=== PATIENT | male | born 1950 | race African-American/Black ===

== ENCOUNTER → 2020-07-01 13:43 | Outpatient (BNVA) | payer MEDICARE, MEDICAID, SELFPAY | PROVIDERS: PCP Student in an Organized Health Care Education/Training Program; Visit Provider Urology | DX: R35.0 Frequency of micturition (principal) | CPT/HCPCS: 51798; 81002; 99212 ==

== ENCOUNTER 2020-07-04 13:57 | Outpatient (REF) | payer MEDICARE, MEDICAID, SELFPAY ==
--- NOTE | 2020-07-04 14:16 | US_ITS ---
EXAMINATION: US RETROPERITONEAL LIMITED (RENAL ONLY) CLINICAL INFORMATION: Calculus of kidney. COMPARISON: KUB dated 09/20/2019. CT abdomen and pelvis without and with contrast dated 09/01/2019. TECHNIQUE: Real-time imaging of the kidneys. FINDINGS: RIGHT KIDNEY: 10.4 x 6.2 x 6.4 cm (SAG x AP x TRV). The kidney is normal in size, contour, and echogenicity. Renal cortical thickness is normal. No renal calculi or hydronephrosis. There is anechoic cyst in the upper pole measuring 2.0 x 2.3 x 2.2 cm LEFT KIDNEY: 11.1 x 6.3 x 5.3 cm (SAG x AP x TRV). The kidney is normal in size, contour, and echogenicity. Renal cortical thickness is normal. No renal calculi or hydronephrosis. There is a anechoic complex cyst midpole measuring 3.3 x 2.0 x 1.9 cm. US/US renal BI IMPRESSION: Upper pole right renal cyst. Complex cyst upper pole left kidney. No echogenic stones or hydronephrosis.
== END 2020-07-04 13:58 | disposition home or self-care (01) ==
LOC: HO.HMGCX 13:57
PROVIDERS: PCP Student in an Organized Health Care Education/Training Program; Visit Provider Urology
DX: N20.0 Calculus of kidney (principal)
CPT/HCPCS: 76775

== ENCOUNTER 2020-08-22 13:16 | Outpatient (REF) | payer MEDICARE, MEDICAID, SELFPAY ==
[2020-08-22 14:14] LABS: Glucose Urine UA NEG (NEG); Leukocyte Esterase Urine NEG (NEG); Nitrite Urine NEG (NEG); Urine Blood NEG (NEG); Urine Ketones NEG (NEG); Urine Protein NEG (NEG-TRACE)
[2020-08-22 14:16] LABS: Appearance Urine HAZY; Color Urine YELLOW
[2020-08-22 14:35] LABS: PSA,Total (Free>4and<10) 6.27 ng/mL (0.00-4.00)
[2020-08-23 13:21] LABS: Free Prostate Spec Ag 1.7 ng/mL; Percent Free Prostate Spec Ag 33 % (calc) (>25); Prostate Specific Ag Total 5.1 ng/mL (< OR = 4.0)
== END 2020-08-22 13:17 | disposition home or self-care (01) ==
LOC: HO.LAB 13:16
PROVIDERS: PCP Student in an Organized Health Care Education/Training Program; Visit Provider Urology
DX: N40.1 Benign prostatic hyperplasia with lower urinary tract symptoms (principal); N13.8 Other obstructive and reflux uropathy; Z12.5 Encounter for screening for malignant neoplasm of prostate
CPT/HCPCS: 36415; 81003; 84153; 84154

== ENCOUNTER 2020-09-20 13:15 | Outpatient (REF) | payer MEDICARE, MEDICAID, SELFPAY ==
[2020-09-20 14:42] LABS: Alanine Aminotransferase 11 U/L (0-40); Albumin Level 4.4 g/dL (3.5-5.0); Alkaline Phosphatase 71 U/L (39-117); Anion Gap 10 (12-20); Aspartate Amino Transferase 13 U/L (5-37); Bilirubin Direct 0.3 mg/dL (0.0-0.5); Bilirubin Total 0.9 mg/dL (0.0-1.0); Blood Urea Nitrogen 12 mg/dL (9-16); Carbon Dioxide 33 mmol/L (22-29); Chloride 103 mmol/L (96-108); Cholesterol 247 mg/dL; Estimated Glomerular Filt Rate > 60; Glucose Random 93 mg/dL (60-115); HDL Cholesterol 47 mg/dL; LDL Cholesterol Calculated 185 mg/dl; Potassium 3.9 mmol/L (3.3-5.1); Sodium 142 mmol/L (135-145); Total Protein 7.3 g/dL (6.5-8.0); Triglycerides 78 mg/dL
== END 2020-09-20 13:16 | disposition home or self-care (01) ==
LOC: HO.LAB 13:15
PROVIDERS: PCP Student in an Organized Health Care Education/Training Program; Visit Provider Student in an Organized Health Care Education/Training Program
DX: I10 Essential (primary) hypertension (principal)
CPT/HCPCS: 36415; 80048; 80061; 80076

== ENCOUNTER → 2020-10-03 12:51 | Outpatient (BNVA) | payer MEDICARE, OTHER, SELFPAY | PROVIDERS: Visit Provider Surgery | DX: K42.9 Umbilical hernia without obstruction or gangrene (principal) | CPT/HCPCS: 99202 ==

== ENCOUNTER 2020-11-12 07:07 | Day surgery (SDC) | payer MEDICARE, OTHER, SELFPAY ==
[2020-11-06 15:09] VITALS: BMI 34.1
--- NOTE | 2020-11-11 08:31 | HO.ANESPROP2 ---
Documented by User: Angi Ponce 11/11/20 08:32 HPI - Anesthesia Eval Consult details Narrative: 70yo M for Hernia Repair Umbilical with Mesh PMFSH Active Problems Active Problems: All Active Problems (Updated 11/06/20 @ 15:04 by Aura Gonzalez) Umbilical hernia (Acute) Kidney stone (Acute) Past Medical History Medical History BPH (benign prostatic hyperplasia) Elevated cholesterol Elevated PSA Erectile dysfunction GERD (gastroesophageal reflux disease) HTN (hypertension) Kidney stone Umbilical hernia Family History Family History Sister Breast cancer Surgical History Surgical History H/O colonoscopy History of hernia repair History of prostate biopsy Hx of hemorrhoidectomy Hx of lithotripsy Social History Social History Alcohol intake: never Smoking Status: Never smoker Advance Directives Information Provided: No Meds Allergies Allergy/AdvReac Type Severity Reaction Status Date / Time codeine [CODEINE] Allergy Intermediate CONFUSION; Verified 10/03/20 13:01 DIZZYNESS oxycodone [From PERCOCET] Allergy Intermediate confusion/d Verified 11/06/20 13:20 izziness Home Medications Medication Instructions Recorded Confirmed Last Taken Type aspirin 81 mg tablet,delayed 81 mg PO DAILY 07/01/20 11/06/20 Unknown History release omeprazole 20 mg capsule,delayed 20 mg PO DAILY 07/01/20 11/12/20 11/12/20 History release sildenafil 100 mg tablet 100 mg PO DAILY PRN 07/01/20 11/06/20 Unknown History verapamil 240 mg 24 hr 240 mg PO DAILY 07/01/20 11/12/20 11/12/20 History capsule,extended release hydralazine 10 mg PO BEDTIME 11/06/20 11/07/20 Unknown History lisinopril 40 mg PO DAILY 11/06/20 11/07/20 Unknown History Exam Exam Date and Time: November 11, 2020 0831 Height,Weight and Vital Signs: Height 5 ft 9 in Weight 104.78 kg Pertinent Lab Results Pertinent Lab Results: Laboratory Tests 09/20/20 13:25 Sodium 142 Potassium 3.9 Chloride 103 Carbon Dioxide 33 H BUN 12 Creatinine 0.98 Assessment and Plan Assessment Anesthesia Assessment: Chart Reviewed Documented by User: Collette Brannon 11/12/20 08:04 PMFSH Past Medical History Medical History BPH (benign prostatic hyperplasia) Elevated cholesterol Elevated PSA Erectile dysfunction GERD (gastroesophageal reflux disease) HTN (hypertension) Kidney stone Umbilical hernia Family History Family History Sister Breast cancer Surgical History Surgical History H/O colonoscopy History of hernia repair History of prostate biopsy Hx of hemorrhoidectomy Hx of lithotripsy Social History Social History Alcohol intake: never Smoking Status: Never smoker Advance Directives Information Provided: No Meds Allergies Allergy/AdvReac Type Severity Reaction Status Date / Time codeine [CODEINE] Allergy Intermediate CONFUSION; Verified 10/03/20 13:01 DIZZYNESS oxycodone [From PERCOCET] Allergy Intermediate confusion/d Verified 11/06/20 13:20 izziness Home Medications Medication Instructions Recorded Confirmed Last Taken Type aspirin 81 mg tablet,delayed 81 mg PO DAILY 07/01/20 11/06/20 Unknown History release omeprazole 20 mg capsule,delayed 20 mg PO DAILY 07/01/20 11/12/20 11/12/20 History release sildenafil 100 mg tablet 100 mg PO DAILY PRN 07/01/20 11/06/20 Unknown History verapamil 240 mg 24 hr 240 mg PO DAILY 07/01/20 11/12/20 11/12/20 History capsule,extended release hydralazine 10 mg PO BEDTIME 11/06/20 11/07/20 Unknown History lisinopril 40 mg PO DAILY 11/06/20 11/07/20 Unknown History Exam Airway Mallampati Class: III TM Dist: >3cm Neck ROM: Full
[2020-11-12] VITALS (7 sets, daily range): BP systolic 144–180; BP diastolic 89–110; PULSE 74–83; RESP 16–18; TEMP 36.2–36.4; O2SAT 94–98
[2020-11-12] MEDS: Lactated Ringers 1,000 ML 100 ML IVCONT (07:53)
--- NOTE | 2020-11-12 08:39 | MHC.SHP ---
Pre-Procedural Eval Section B Chief Complaint: Umbilical Hernia Allergies: Allergies Allergy/AdvReac Type Severity Reaction Status Date / Time codeine [CODEINE] Allergy Intermediate CONFUSION; Verified 10/03/20 13:01 DIZZYNESS oxycodone [From PERCOCET] Allergy Intermediate confusion/d Verified 11/06/20 13:20 izziness Plan I have reviewed the history and physical and performed a pertinent physical examination on my patient. No changes have occurred unless specified.
--- NOTE | 2020-11-12 09:47 | P.OP_ITS ---
Operative Note Operative Note Date of Service: 11/12/20 Narrative: Preop diagnosis: Umbilical hernia line Postop diagnosis: Umbilical hernia Procedure: Repair of umbilical hernia with Ventralex mesh Surgeon: Ian Allison MD Nuclear Medicine Specialist: RAYSA Serna student The patient is a 70-year-old male referred to me because of an umbilical hernia. This was about a 2.5- 3 cm hernia partially reducible just on the supraumbilical margin. He wanted to proceed with repair. He understood technique of the procedure as well as the risks, benefits and alternatives. He was brought to the operating room and placed supine on table under general anesthesia via laryngeal mask airway. The abdomen is prepped and draped in the full sterile fashion. A surgical time-out was done. The patient received cefazolin 2 g IV preoperatively I marked and line of incision transversely just above the umbilicus. I infiltrated this area with lidocaine 1%. I made the incision using blade 15. This was carried down through the full-thickness of skin and subcutaneous fat with electrocautery. We then used the Metzenbaum scissors to continue to gently dissect under the the umbilicus. I applied Allis clamps on the subdraml layer of the inferior flap for retraction. I gently lifted the umbilicus as a flap. By doing so I was able to visualize herniated omental fat. There was no bowel involvement. I dissected around omental fat with Metzenbaum scissors until was able to clearly define the fascial defect. I divided adhesions surrounding the herniated omentum and by doing so I was able to completely reduce this hernia. The fascial defect was clearly defined. This was about 1.5 cm defect. I gently dissected the underside with the finger and made sure that there were no adhesions. I positioned a small sized Ventralex mesh under the defect and this was flattened. I secured the mesh with Prolene 2-0 sutures from the fascia to each Prolene straps. I then trimmed the straps flush on the fascial level. I closed the fascial defect with a [id number] Maxon 1 stitch. I reapposed the subcutaneous layer the Dexon 3-0 interrupted sutures. Skin closure was achieved with Dexon 4-0 subcuticular running sutures. Steristrips and dressings were applied. I infiltrated the area with Marcaine 0.5% for postop analgesia. The procedure was completed. The patient tolerated the procedure well . There were no complications noted. Initial and final counts of sponges and instruments were correct. Estimated blood loss was about 2 cc. The patient was extubated without difficulty and transferred to the recovery room with stable VS.
--- NOTE | 2020-11-12 10:00 | P.BOP_ITS ---
Brief Operative Note Date of Service: 11/12/20 Pre-op diagnosis: umbilical hernia Post-op diagnosis: same Procedure: Repair of umbilical hernia with Ventralex mesh Surgeon: Ian Allison MD Anesthesia: GLMA Was an Dishwashing Machine Repairer used for this Procedure?: No Estimated blood loss (mL): 2 Pathology: none sent Condition: stable Disposition: PACU
[2020-11-12] MEDS: traMADoL HCL 50 MG TABLET 25 MG PO (10:35)
== END 2020-11-12 11:32 | disposition home or self-care (01) ==
PROVIDERS: PCP Student in an Organized Health Care Education/Training Program; Visit Provider Surgery
PROC: (CPT 49585; principal; 2020-11-12 08:40)
DX: K42.9 Umbilical hernia without obstruction or gangrene (principal); K66.0 Peritoneal adhesions (postprocedural) (postinfection); K21.9 Gastro-esophageal reflux disease without esophagitis; I10 Essential (primary) hypertension; Z79.82 Long term (current) use of aspirin; Z79.899 Other long term (current) drug therapy; Z87.442 Personal history of urinary calculi; Z88.8 Allergy status to other drugs, medicaments and biological substances
CPT/HCPCS: 49585; C1781; J0690; J2250; J2405; J3010

== ENCOUNTER → 2020-11-25 10:04 | Outpatient (BNVA) | payer MEDICARE, MEDICAID, SELFPAY | PROVIDERS: PCP Student in an Organized Health Care Education/Training Program; Referring Provider Student in an Organized Health Care Education/Training Program; Visit Provider Surgery | DX: Z48.815 Encounter for surgical aftercare following surgery on the digestive system (principal); Z87.19 Personal history of other diseases of the digestive system | CPT/HCPCS: 99212 ==

== ENCOUNTER 2021-09-29 15:38 | Outpatient (REF) | payer MEDICARE, OTHER, SELFPAY ==
[2021-09-29 16:40] LABS: Alanine Aminotransferase 21 U/L (0-40); Albumin Level 4.5 g/dL (3.5-5.0); Alkaline Phosphatase 80 U/L (39-117); Anion Gap 12 (12-20); Aspartate Amino Transferase 13 U/L (5-37); Bilirubin Direct 0.2 mg/dL (0.0-0.5); Bilirubin Total 0.6 mg/dL (0.0-1.0); Blood Urea Nitrogen 13 mg/dL (9-16); Calcium 9.6 mg/dL (8.4-10.2); Carbon Dioxide 32 mmol/L (22-29); Chloride 102 mmol/L (96-108); Cholesterol 216 mg/dL; Estimated Glomerular Filt Rate > 60; Glucose Random 94 mg/dL (60-115); HDL Cholesterol 43 mg/dL; LDL Cholesterol Calculated 150 mg/dl; Potassium 4.1 mmol/L (3.3-5.1); Sodium 142 mmol/L (135-145); Total Protein 7.5 g/dL (6.5-8.0); Triglycerides 117 mg/dL
[2021-09-29 17:03] LABS: Thyroid Stimulating Hormone 1.08 uIU/mL (0.32-4.0)
== END 2021-09-29 15:39 | disposition home or self-care (01) ==
LOC: HO.LAB 15:38
PROVIDERS: PCP Student in an Organized Health Care Education/Training Program; Visit Provider Student in an Organized Health Care Education/Training Program
DX: E78.00 Pure hypercholesterolemia, unspecified (principal); I10 Essential (primary) hypertension
CPT/HCPCS: 36415; 80048; 80061; 80076; 84443

== ENCOUNTER 2021-12-16 16:34 | Emergency (ER) | payer MEDICARE, OTHER, SELFPAY ==
[2021-12-16 16:54] VITALS: BP 164/97; PULSE 77; RESP 18; TEMP 37.1; O2SAT 95; BMI 32.5
[2021-12-16 17:09] LABS: MANUAL DIFF FLAG NO
[2021-12-16 17:12] LABS: Basophils Percent Auto 0.3 % (0-2); Eosinophils Absolute Auto 0.2 X10*3/uL (0.0-0.4); Eosinophils Percent Auto 3.2 % (0-4); Hematocrit 40.9 % (42.0-52.0); Hemoglobin 13.5 g/dl (14.0-18.0); Imm Gran Abs Auto 0.01 X10*3/uL (0.00-0.03); Imm Gran Pct Auto 0.2 % (0.0-0.4); Lymphocytes Absolute Auto 1.7 X10*3/uL (1.2-4.9); Lymphocytes Percent Auto 29.4 % (20-40); Mean Corpuscular Hemoglobin 30.5 pg (27.0-33.0); Mean Corpuscular Volume 92.3 fL (80.0-98.0); Mean Platelet Volume 9.5 fL (9.4-12.4); Monocytes Absolute Auto 0.6 X10*3/uL (0.1-1.2); Monocytes Percent Auto 10.8 % (2-11); Neutrophils Absolute Auto 3.3 x10*3/uL (2.0-8.3); Neutrophils Percent Auto 56.1 % (45-73); Platelet Count 229 X10*3/uL (160-400); Red Blood Count 4.43 X10*6/uL (4.60-5.80); Red Cell Distribution Width 12.6 % (11.0-16.0); White Blood Count 5.9 X10*3/uL (4.8-10.8)
[2021-12-16 17:12] LABS: Appearance Urine CLOUDY; Color Urine YELLOW; Glucose Urine UA NEG (NEG); Leukocyte Esterase Urine NEG (NEG); Nitrite Urine NEG (NEG); PH 7.5 (5.0-8.0); Specific Gravity - Urine 1.015 (1.005-1.025); Urine Blood NEG (NEG); Urine Ketones NEG (NEG); Urine Protein NEG (NEG-TRACE)
[2021-12-16 17:45] LABS: Alanine Aminotransferase 19 U/L (0-40); Albumin Level 4.3 g/dL (3.5-5.0); Alkaline Phosphatase 77 U/L (39-117); Anion Gap 9 (12-20); Aspartate Amino Transferase 14 U/L (5-37); Bilirubin Total 0.5 mg/dL (0.0-1.0); Blood Urea Nitrogen 16 mg/dL (9-16); Calcium 9.2 mg/dL (8.4-10.2); Carbon Dioxide 32 mmol/L (22-29); Chloride 105 mmol/L (96-108); Creatinine Clr Calc Pharmacy 74.8; Estimated Glomerular Filt Rate > 60; Glucose Random 104 mg/dL (60-115); Sodium 142 mmol/L (135-145); Total Protein 7.2 g/dL (6.5-8.0)
[2021-12-16 22:29] VITALS: BP 166/92; PULSE 76; RESP 15; TEMP 36.6; O2SAT 96
--- NOTE | 2021-12-16 22:30 | ED_ITS ---
HPI - General Adult General Chief complaint: Abdominal Pain Stated complaint: lower back pain Time Seen by Provider: 12/16/21 22:18 Source: patient Mode of arrival: ambulatory Limitations: no limitations History of Present Illness HPI narrative: Patient comes to the emergency room complaining of 6 weeks of right lower back pain. Patient states fall occasionally he has pain. At this time, is minimal. Patient states that at some point he saw hematuria, possibly 3 weeks ago but nothing recent. Patient denies dysuria, no flank pain, no abdominal pain. Patient denies any injury. Patient denies urinary/fecal incontinence/retention Related Data Home Medications Medication Instructions Recorded Confirmed aspirin 81 mg tablet,delayed 81 mg PO DAILY 07/01/20 11/25/20 release (Adult Low Dose Aspirin) omeprazole 20 mg capsule,delayed 20 mg PO DAILY 07/01/20 11/25/20 release sildenafil 100 mg tablet 100 mg PO DAILY PRN Erectile 07/01/20 11/25/20 Dysfunction verapamil 240 mg 24 hr 240 mg PO DAILY 07/01/20 11/25/20 capsule,extended release hydralazine 10 mg tablet 10 mg PO BEDTIME 11/06/20 11/25/20 lisinopril 40 mg tablet 40 mg PO DAILY 11/06/20 11/25/20 Previous Rx's Medication Instructions Recorded ibuprofen 600 mg tablet 600 mg PO Q6H PRN pain #30 tabs 11/12/20 oxycodone-acetaminophen 5 mg-325 1 - 2 tab PO Q4-6H PRN pain #30 11/12/20 mg tablet (Percocet) tabs tramadol 50 mg tablet 50 mg PO Q6H PRN pain #30 tabs 11/12/20 tamsulosin 0.4 mg capsule 0.4 mg PO BEDTIME #30 caps 04/25/21 ketorolac 10 mg tablet 10 mg PO TID PRN pain 5 days #7 12/16/21 tabs tramadol 50 mg tablet 50 mg PO BID PRN pain #7 tabs 12/16/21 Allergies Allergy/AdvReac Type Severity Reaction Status Date / Time codeine [CODEINE] Allergy Intermediate CONFUSION; Verified 12/16/21 16:53 DIZZYNESS oxycodone [From PERCOCET] Allergy Intermediate confusion/d Verified 12/16/21 16:53 izziness Review of Systems Review of Systems: Constitutional : No Weight loss, No Fever, No Chills, No Night Sweats, No Fatigue, No Malaise ENT/Mouth : No Hearing loss, No Ear Pain, No Nasal Congestion, No Sinus Pain, No Hoarseness, No sore throat, No Rhinorrhea, No Swallowing Difficulty Eyes: No Eye Pain, No Swelling, No Redness, No Foreign Body, No Discharge, No Vision Changes Cardiovascular : No Chest Pain, No SOB, No Dyspnea on Exertion, No Orthopnea, No Edema, No Palpitations Respiratory : No Cough, No Sputum, No Wheezing, No Smoke Exposure, No Dyspnea Gastrointestinal : No Nausea, No Vomiting, No Diarrhea, No Constipation, No abdominal Pain, No Hematochezia, No Melena Genitourinary : no irregular bleeding, No Dysuria, No Urinary Frequency, No Hematuria, No Urinary Incontinence, No Urgency, No Flank Pain, No Urinary Flow Changes, No Hesitancy Musculoskeletal : Complaining of right low back pain Skin : No Skin Lesions, No rash Neuro : No Weakness, No Numbness, No Paresthesias, No Loss of Consciousness, No Dizziness, No Headache Psych : No Anxiety/Panic, No Depression, No SI/HI/AH/VH, No Social Issues, Heme/Lymph: No Bruising, No Bleeding,No Lymphadenopathy Endocrine : No Polyuria, No Polydipsia, No Temperature Intolerance PMFSH Past Medical History Medical History BPH (benign prostatic hyperplasia) Elevated cholesterol Elevated PSA Erectile dysfunction GERD (gastroesophageal reflux disease) HTN (hypertension) Surgical History H/O colonoscopy History of hernia repair History of prostate biopsy Hx of hemorrhoidectomy Hx of lithotripsy Family History Family History Sister Breast cancer Social History Social History Alcohol intake: never Advance Directives: No Physical Exam ED Vital Signs: Vital Signs - 24 hr 12/16/21 16:54 12/16/21 22:29 Temperature 98.7 F 97.8 F Pulse Rate 77 76 Respiratory Rate 18 15 Blood Pressure 164/97 H 166/92 H Pulse Oximetry 95 96 Oxygen Delivery Method Room Air Room Air BMI result Body Mass Index 32.5 Const Other: Appearance: Alert. Oriented X3. No acute distress. Eyes: Pupils equal, round and reactive to light. ENT: Pharynx normal. Neck: Normal inspection. Neck supple. No lymph nodes noted. No crepitus CVS: Normal heart rate and rhythm. Pulses normal. Normal S1 and S2 Respiratory: No respiratory distress. Breath sounds normal. No Wheezing. No rales Abdomen: Soft and nontender. No rigidity. No distention. Back: Spina muscles on the left side are soft, on the right side muscles are tense, mild pain to palpation. No CVA tenderness Skin: Skin warm and dry. Normal skin color. Normal skin turgor. Extremities: No lower extremity edema. No Lacerations. No Rash Neuro: Oriented X 3. No motor deficit. No sensory deficit. Moving all extremities. No slurred speech. CN 2 through 12 grossly intact Psych: calm, cooperative, normal affect Course Course Course Narrative: Patient's urine is clean, no blood present. Patient does not have CVA tenderness, no abdominal pain. Patient's pain is likely musculoskeletal in nature. Patient was given IM Toradol. Patient instructed to follow-up with his primary care physician. Since patient has had this pain for 6 weeks now, he may need physical therapy. Medical Decision Making Lab Data Result diagrams: 12/16/21 17:04 12/16/21 17:04 Labs: Lab Results 12/16/21 12/16/21 12/16/21 Range/Units 16:59 17:04 17:04 WBC 5.9 (4.8-10.8) X10*3/uL RBC 4.43 L (4.60-5.80) X10*6/uL Hgb 13.5 L (14.0-18.0) g/dl Hct 40.9 L (42.0-52.0) % MCV 92.3 (80.0-98.0) fL MCH 30.5 (27.0-33.0) pg MCHC 33.0 (31.0-36.0) g/dl RDW 12.6 (11.0-16.0) % Plt Count 229 (160-400) X10*3/uL MPV 9.5 (9.4-12.4) fL Immature Gran % (Auto) 0.2 (0.0-0.4) % Neut % (Auto) 56.1 (45-73) % Lymph % (Auto) 29.4 (20-40) % [place] % (Auto) 10.8 (2-11) % Eos % (Auto) 3.2 (0-4) % Baso % (Auto) 0.3 (0-2) % Lymph # (Auto) 1.7 (1.2-4.9) X10*3/uL [place] # (Auto) 0.6 (0.1-1.2) X10*3/uL Eos # (Auto) 0.2 (0.0-0.4) X10*3/uL Baso # (Auto) 0.0 (0.0-0.2) X10*3/uL Abs Immat Gran (auto) 0.01 (0.00-0.03) X10*3/uL Absolute Neuts (auto) 3.3 (2.0-8.3) x10*3/uL Absolute Nucleated RBC 0.000 (0.0-0.012) X10*3/uL Nucleated RBC % (auto) 0.0 (0.0-0.2) /100WBC Sodium 142 (135-145) mmol/L Potassium 4.0 (3.3-5.1) mmol/L Chloride 105 (96-108) mmol/L Carbon Dioxide 32 H (22-29) mmol/L Anion Gap 9 L (12-20) BUN 16 (9-16) mg/dL Creatinine 1.07 (0.5-1.4) mg/dL Estim Creat Clear Calc 74.8 Estimated GFR > 60 Random Glucose 104 (60-115) mg/dL Calcium 9.2 (8.4-10.2) mg/dL Total Bilirubin 0.5 (0.0-1.0) mg/dL AST 14 (5-37) U/L ALT 19 (0-40) U/L Alkaline Phosphatase 77 (39-117) U/L Total Protein 7.2 (6.5-8.0) g/dL Albumin 4.3 (3.5-5.0) g/dL Urine Color YELLOW Urine Appearance CLOUDY Urine pH 7.5 (5.0-8.0) Ur Specific Muse 1.015 (1.005-1.025) Urine Protein NEG (NEG-TRACE) MG/DL Urine Glucose (UA) NEG (NEG) MG/DL Urine Ketones NEG (NEG) MG/DL Urine Blood NEG (NEG) Urine Nitrite NEG (NEG) Ur Leukocyte Esterase NEG (NEG) Discharge Plan Discharge Clinical Impression: Back pain Patient Disposition: Home, Self-Care Instructions: Back Pain (ED) Additional Instructions: Please follow-up with your primary care physician tomorrow. If you have any worsening or new symptoms, please return to the emergency room or call 911 Prescriptions: New tramadol 50 mg tablet 50 mg PO BID PRN (Reason: pain) Qty: 7 0RF ketorolac 10 mg tablet 10 mg PO TID PRN (Reason: pain) 5 Days Qty: 7 0RF No Action tamsulosin 0.4 mg capsule 0.4 mg PO BEDTIME Qty: 30 0RF hydralazine 10 mg tablet 10 mg PO BEDTIME lisinopril 40 mg tablet 40 mg PO DAILY ibuprofen 600 mg tablet 600 mg PO Q6H PRN (Reason: pain) Qty: 30 0RF oxycodone-acetaminophen [Percocet] 5-325 mg tablet 1 - 2 tab PO Q4-6H PRN (Reason: pain) Qty: 30 0RF tramadol 50 mg tablet 50 mg PO Q6H PRN (Reason: pain) Qty: 30 0RF Rx Instructions: 1-2 tabs every 6 hours as needed for pain; no more than 8 tablets a day sildenafil 100 mg tablet 100 mg PO DAILY PRN (Reason: Erectile Dysfunction) Rx Instructions: administer 30 minutes to 4 hours before activity verapamil 240 mg capsule,ext rel. pellets 24 hr 240 mg PO DAILY omeprazole 20 mg capsule,delayed release(DR/EC) 20 mg PO DAILY aspirin [Adult Low Dose Aspirin] 81 mg tablet,delayed release (DR/EC) 81 mg PO DAILY Referrals: Ambreen Forde MD [Primary Care Provider] - 3 days
[2021-12-16] MEDS: Ketorolac Tromethamine 60 MG/2 ML VIAL IM (22:41)
== END 2021-12-16 23:01 | disposition home or self-care (01) ==
PROVIDERS: Emergency Provider Emergency Medicine; PCP Student in an Organized Health Care Education/Training Program
DX: M54.50 Low back pain, unspecified (principal); E78.5 Hyperlipidemia, unspecified; Z79.82 Long term (current) use of aspirin
CPT/HCPCS: 36415; 80053; 81003; 85025; 96372; 99283; 99284; J1885

== ENCOUNTER 2022-03-26 14:22 | Outpatient (REF) | payer MEDICARE, OTHER, SELFPAY ==
--- NOTE | ~2022-03-26 | US_ITS ---
EXAMINATION: US RETROPERITONEAL LIMITED (RENAL ONLY) CLINICAL INFORMATION: Calculus of kidney. COMPARISON: Renal ultrasound 07/04/2020. X-ray KUB 09/20/2019. CT abdomen and pelvis 09/01/2019. TECHNIQUE: Real-time imaging of the kidneys. FINDINGS: RIGHT KIDNEY: 10.2 x 5.8 x 6.9 cm (SAG x AP x TRV). Anechoic cyst is seen in the upper pole measuring 2.8 cm. A smaller hypoechoic focus in the upper pole measures 1.4 cm. Color Doppler showed no abnormal vascular flow. No hydronephrosis or nephrolithiasis. LEFT KIDNEY: 11.4 x 6.0 x 5.0 cm (SAG x AP x TRV). Left lower pole anechoic cyst measures 2.9 cm. Interpolar echogenic focus measures 0.3 cm. Color Doppler showed no abnormal vascular flow. No hydronephrosis or nephrolithiasis. US/US renal BI IMPRESSION: 1. Bilateral renal cysts demonstrate benign features not requiring follow-up. No acute abnormality. 2. Nonobstructing interpolar left intrarenal calculus.
[2022-03-26 16:17] LABS: Prostate Specific Antigen 6.04 ng/mL (<0.05-4.0)
== END 2022-03-26 14:23 | disposition home or self-care (01) ==
LOC: HO.US 14:22
PROVIDERS: Visit Provider Urology
DX: Z12.5 Encounter for screening for malignant neoplasm of prostate (principal); N20.0 Calculus of kidney; R97.20 Elevated prostate specific antigen [PSA]
CPT/HCPCS: 36415; 76775; 84153

== ENCOUNTER → 2022-04-03 09:57 | Outpatient (BNVA) | payer MEDICARE, OTHER, SELFPAY | PROVIDERS: PCP Student in an Organized Health Care Education/Training Program; Visit Provider Urology | DX: R97.20 Elevated prostate specific antigen [PSA] (principal); N40.0 Benign prostatic hyperplasia without lower urinary tract symptoms | CPT/HCPCS: 99212 ==

== ENCOUNTER 2022-10-08 17:13 | Outpatient (REF) | payer MEDICARE, SELFPAY ==
[2022-10-08 18:45] LABS: Prostate Specific Antigen 3.92 ng/mL (<0.05-4.0)
== END 2022-10-08 17:14 | disposition home or self-care (01) ==
LOC: HO.LAB 17:13
PROVIDERS: PCP Student in an Organized Health Care Education/Training Program; Visit Provider Urology
DX: Z12.5 Encounter for screening for malignant neoplasm of prostate (principal); R97.20 Elevated prostate specific antigen [PSA]
CPT/HCPCS: 36415; 84153

== ENCOUNTER → 2022-10-13 11:41 | Outpatient (BNVA) | payer MEDICARE, SELFPAY | PROVIDERS: PCP Student in an Organized Health Care Education/Training Program; Visit Provider Urology | DX: N40.0 Benign prostatic hyperplasia without lower urinary tract symptoms (principal); N20.0 Calculus of kidney; R97.20 Elevated prostate specific antigen [PSA]; B35.6 Tinea cruris | CPT/HCPCS: 51798; 99212 ==

== ENCOUNTER 2023-06-18 15:06 | Outpatient (REF) | payer MEDICARE, SELFPAY ==
[2023-06-18 18:24] LABS: Hematocrit 42.3 % (42.0-52.0); Hemoglobin 14.3 g/dl (14.0-18.0); Mean Corpuscular HGB Conc 33.8 g/dl (31.0-36.0); Mean Corpuscular Hemoglobin 30.8 pg (27.0-33.0); Mean Corpuscular Volume 91.2 fL (80.0-98.0); Mean Platelet Volume 10.4 fL (9.4-12.4); Platelet Count 228 X10*3/uL (160-400); Red Blood Count 4.64 X10*6/uL (4.60-5.80); Red Cell Distribution Width 12.4 % (11.0-16.0); White Blood Count 4.5 X10*3/uL (4.8-10.8)
[2023-06-18 18:43] LABS: Anion Gap 14 (12-20); Blood Urea Nitrogen 19 mg/dL (9-16); Calcium 9.6 mg/dL (8.4-10.2); Carbon Dioxide 31 mmol/L (22-29); Chloride 101 mmol/L (96-108); Estimated Glomerular Filt Rate > 60; Glucose Random 83 mg/dL (60-115); Potassium 3.2 mmol/L (3.3-5.1); Sodium 143 mmol/L (135-145)
[2023-06-18 18:59] LABS: TSH reflex Free T4 1.19 uIU/mL (0.32-4.0)
[2023-06-18 19:12] LABS: Folate 10.5 ng/mL (> or = 4.0); Vitamin B12 657 pg/mL (200-900)
== END 2023-06-18 15:07 | disposition home or self-care (01) ==
LOC: HO.CHCLDS 15:06
PROVIDERS: Visit Provider Internal Medicine
DX: I25.10 Atherosclerotic heart disease of native coronary artery without angina pectoris (principal); I10 Essential (primary) hypertension
CPT/HCPCS: 36415; 80048; 82607; 82746; 84443; 85027

== ENCOUNTER 2023-10-25 16:35 | Outpatient (REF) | payer MEDICARE, SELFPAY ==
[2023-10-25 17:48] LABS: PSA,Total (Free>4and<10) 3.86 ng/mL (0.00-4.00)
== END 2023-10-25 16:36 | disposition home or self-care (01) ==
LOC: HO.LAB 16:35
PROVIDERS: PCP Student in an Organized Health Care Education/Training Program; Visit Provider Urology
DX: R97.20 Elevated prostate specific antigen [PSA] (principal); Z12.5 Encounter for screening for malignant neoplasm of prostate
CPT/HCPCS: 36415; 84153

== ENCOUNTER 2023-10-29 10:25 | Outpatient (REF) | payer MEDICARE, SELFPAY ==
--- NOTE | ~2023-10-29 | US_ITS ---
EXAMINATION: US RETROPERITONEAL LIMITED (RENAL ONLY) CLINICAL INFORMATION: Calculus of kidney. COMPARISON: Renal ultrasound 03/26/2022 and 07/04/2020. CT abdomen and pelvis 09/01/2019. TECHNIQUE: Real-time imaging of the kidneys. FINDINGS: RIGHT KIDNEY: 11.3 x 6.3 x 6.8 cm (SAG x AP x TRV). The kidney is normal in size, contour, and echogenicity. Renal cortical thickness is normal. No renal calculi or hydronephrosis. 2.5 cm simple cyst in the upper pole. 0.8 cm simple cyst in the upper pole. No imaging follow-up is recommended. LEFT KIDNEY: 12.0 x 6.3 x 5.0 cm (SAG x AP x TRV). The kidney is normal in size, contour, and echogenicity. Renal cortical thickness is normal. No renal calculi or hydronephrosis. 3.4 cm thinly septated cyst in the lower pole. No imaging follow-up is recommended. US/US renal BI IMPRESSION: No nephrolithiasis or hydronephrosis.
== END 2023-10-29 10:26 | disposition home or self-care (01) ==
LOC: HO.US 10:25
PROVIDERS: PCP Student in an Organized Health Care Education/Training Program; Visit Provider Urology
DX: N20.0 Calculus of kidney (principal)
CPT/HCPCS: 76775

== ENCOUNTER 2023-11-12 13:08 | Outpatient (AMB) | payer MEDICARE, SELFPAY ==
--- NOTE | 2023-11-12 13:28 | A.OFFVIS_ITS ---
Intake Visit Reasons: 1Y US/PSA(set) Intake Note: Patient is Present for PVR/US/PSA Urology Med: Tamsulosin, Finasteride, Sildenafil Antibiotic Allergy:None Blood Thinner:Eliquis, Aspirin Last PVR: 0 Todays PVR: 38 Allergies codeine [CODEINE] Allergy (Intermediate, Verified 11/12/23 13:33) CONFUSION; DIZZYNESS oxycodone [From PERCOCET] Allergy (Intermediate, Verified 11/12/23 13:33) confusion/dizziness HPI Comments Details: Gabino is a pleasant male. He is a patient of Dr. Forde. He seen for the following urologic conditions - lower urinary tract symptoms - elevated PSA - nephrolithiasis - erectile dysfunction Twelve month follow-up PSA stable Remains on for finasteride and tamsulosin Reports weakness of stream and progressive urgency and frequency Plan bladder ultrasound and office cystoscopy Nephrolithiasis Imaging 03/26 renal ultrasound negative 09/24 - renal ultrasound 3 mm stone left, bilateral 1.5 cm cyst Bosniak 1 10/26 - renal ultrasound bilateral Bosniak 1 cysts Lower urinary tract symptoms Ongoing Current therapy finasteride and tamsulosin Initiate combination therapy finasteride and Flomax PSA 03/26 6.0, 10/25 3.9, 10/26 3.9 Prior prostate biopsy negative Erectile dysfunction Sildenafil on demand On combination chlorthalidone, metoprolol, lisinopril PFSH Medical History Elevated cholesterol GERD (gastroesophageal reflux disease) HTN (hypertension) Umbilical hernia Erectile dysfunction BPH (benign prostatic hyperplasia) Kidney stone Elevated PSA Surgical History Hx of hemorrhoidectomy H/O colonoscopy Hx of lithotripsy History of hernia repair History of prostate biopsy Family History Sister Breast cancer Social History Alcohol intake: never Review of Systems Const Denies chills and Denies fever(s) Card Reports no additional complaints and Denies syncope Resp Denies cough GI Denies abdominal pain and Denies heartburn Reports as per HPI and Denies change in libido Neuro Denies syncope Psych Denies change in libido Endo Denies change in libido Physical Exam Const General: cooperative, healthy appearing, comfortable and no acute distress Orientation/consciousness: patient oriented x3 HEENT Face and sinus: Yes normal facial exam Mouth: moist mucous membranes Neck Neck: Yes normal visual inspection, Yes full ROM and Yes trachea midline Chest Chest palpation & inspection: normal inspection of the chest Resp Effort & Inspection: normal respiratory effort, able to speak in complete sentences and no respiratory distress GI Inspection: Yes normal to inspection Back/Spine/Pelvis Cervical Spine: normal cervical lordosis Thoracic/Lumbar Spine: thoracic and lumbar spine normal to inspection Skin General skin exam: no rashes or lesions noted Neuro General: patient oriented x3, gait normal, tone normal and moves all extremities Extrem General: Yes normal to inspection and Yes capillary refill normal Office Procedures Post Void Residual Post Residual Void Post Void Residual (PVR): 38 [id number] Void Residual by ultrasound Assessment & Plan Assessment & Plan (1) Elevated PSA: Code(s): R97.20 - Elevated prostate specific antigen [PSA] Category: Medical (2) BPH (benign prostatic hyperplasia): Code(s): N40.0 - Benign prostatic hyperplasia without lower urinary tract symptoms Category: Medical (3) Weak urinary stream: Code(s): R39.12 - Poor urinary stream Category: Medical Plan Bladder ultrasound with office cystoscopy Orders: Orders US bladder Today N40.0 - Benign prostatic hyperplasia without lower urinary tract symptoms, R39.12 - Poor urinary stream AMB Post Void Residual by ultrasound Today N40.0 - Benign prostatic hyperplasia without lower urinary tract symptoms Patient Instructions: Imaging studies, laboratory and physical exam results were discussed and reviewed in detail. No major barriers to patient understanding were identified. An opportunity to ask questions regarding the treatment plan was provided. All questions were answered. The patient expressed understanding and agreement with the above treatment plan. The patient is aware they should contact our office by phone for worsening of their current condition or the appearance of new urologic symptoms. Compliance is encouraged with any medications and followup testing that is ordered. It is a privilege to participate in the urologic care of your patient. If you have any questions or concerns regarding treatment for the above conditions, or other urologic issues, please do not hesitate to contact me. The office telephone contact is [phone]. This note is constructed using voice recognition software. While every effort has been made to ensure accuracy sports physiologist errors may have been included. Yours sincerely, Dr Miguel Callejas MD, [facility] - Urology Providers of Expert, Compassionate Care for the Genitourinary System Coding Level of Care Code Est Pt Level 4 (54235) Diagnoses Elevated PSA R97.20 BPH (benign prostatic hyperplasia) N40.0 Weak urinary stream R39.12 CPT Codes Post Residual Void - PVR CPT Code: 15202-Fpoz Void Residual by ultrasound ([id number])
== END 2023-11-12 13:51 | disposition home or self-care (01) ==
PROVIDERS: Visit Provider Urology
DX: R97.20 Elevated prostate specific antigen [PSA] (principal); N40.0 Benign prostatic hyperplasia without lower urinary tract symptoms; R39.12 Poor urinary stream
CPT/HCPCS: 99214

== ENCOUNTER → 2023-11-12 13:08 | Outpatient (BNVA) | payer MEDICARE, SELFPAY | PROVIDERS: Visit Provider Urology | DX: R97.20 Elevated prostate specific antigen [PSA] (principal); N40.1 Benign prostatic hyperplasia with lower urinary tract symptoms; R39.12 Poor urinary stream | CPT/HCPCS: 51798; 99212 ==

== ENCOUNTER 2023-11-22 14:16 | Outpatient (REF) | payer MEDICARE, SELFPAY | END 2023-11-22 14:17 | disposition home or self-care (01) | LOC: HO.US 14:16 | PROVIDERS: PCP Student in an Organized Health Care Education/Training Program; Visit Provider Urology | DX: Z13.89 Encounter for screening for other disorder (principal) ==

== ENCOUNTER 2023-11-26 15:24 | Outpatient (REF) | payer MEDICARE, SELFPAY | END 2023-11-26 15:25 | disposition home or self-care (01) | LOC: HO.US 15:24 | PROVIDERS: PCP Student in an Organized Health Care Education/Training Program; Visit Provider Urology | DX: Z13.89 Encounter for screening for other disorder (principal) ==

== ENCOUNTER 2023-12-03 15:22 | Outpatient (REF) | payer MEDICARE, SELFPAY ==
--- NOTE | ~2023-12-03 | US_ITS ---
EXAMINATION: US PELVIS LIMITED (BLADDER) CLINICAL INFORMATION: Poor urinary stream. COMPARISON: X-ray abdomen KUB 09/20/2019. CT abdomen and pelvis 09/01/2019. TECHNIQUE: Real-time imaging of the bladder. FINDINGS: BLADDER: Well distended and normal. Bilateral ureteral jets are demonstrated. Prevoid bladder volume is 195 mL. Postvoid bladder volume is 29.3 mL. Enlarged prostate, volume 126 mL. US/US bladder IMPRESSION: 1. Small post void residual. 2. Enlarged prostate.
== END 2023-12-03 15:23 | disposition home or self-care (01) ==
LOC: HO.US 15:22
PROVIDERS: PCP Student in an Organized Health Care Education/Training Program; Visit Provider Urology
DX: R39.12 Poor urinary stream (principal); N40.0 Benign prostatic hyperplasia without lower urinary tract symptoms
CPT/HCPCS: 76857

== ENCOUNTER 2023-12-15 13:17 | Outpatient (AMB) | payer MEDICARE, SELFPAY ==
--- NOTE | 2023-12-15 13:57 | A.OFFVIS_ITS ---
Intake Visit Reasons: cysto/US(set) Intake Note: Patient is Present for Cystoscopy Urology Med:Tamsulosin, Finasteride Antibiotic Allergy: None Blood Thinner: Eliquis/Aspirin URO- G Disposable Cystoscope lot: [id number] exp:08/05/2026 Allergies codeine [CODEINE] Allergy (Intermediate, Verified 03/09/24 12:13) CONFUSION; DIZZYNESS oxycodone [From PERCOCET] Allergy (Intermediate, Verified 03/09/24 12:13) confusion/dizziness Medication List - Last Reconciled 12/15/23 by Miguel Callejas MD apixaban (Eliquis) 5 mg PO BID aspirin (Adult Low Dose Aspirin) 81 mg PO DAILY aspirin 1 tab PO QAM chlorthalidone 25 mg PO QAM finasteride 5 mg PO DAILY 90 days hydralazine 10 mg PO BEDTIME ketorolac 10 mg PO TID PRN 5 days latanoprost 0.005% 1 drp ophthalmic (eye) BEDTIME lisinopril 40 mg PO DAILY metoprolol succinate ER 100 mg PO DAILY omeprazole 20 mg PO DAILY sildenafil (Viagra) 50 mg PO DAILY PRN sildenafil 100 mg PO DAILY PRN 30 days simvastatin 10 mg PO QPM tamsulosin 0.4 mg PO BEDTIME 90 days terbinafine HCl 250 mg PO DAILY 7 days verapamil ER 240 mg PO QAM HPI Comments Details: Gabino is a pleasant male. He is a patient of Dr. Forde. He seen for the following urologic conditions - lower urinary tract symptoms - elevated PSA - nephrolithiasis - erectile dysfunction Combination finasteride and tamsulosin Here for cystoscopy Had noted progressive weakness of stream Obstruction Plan for GreenLight laser Nephrolithiasis Imaging 03/26 renal ultrasound negative 09/24 - renal ultrasound 3 mm stone left, bilateral 1.5 cm cyst Bosniak 1 10/26 - renal ultrasound bilateral Bosniak 1 cysts Lower urinary tract symptoms Ongoing Current therapy finasteride and tamsulosin Initiate combination therapy finasteride and Flomax PSA 03/26 6.0, 10/25 3.9, 10/26 3.9 Prior prostate biopsy negative Bladder ultrasound - 11/25 - 30 cc residual, prostate 125 g Erectile dysfunction Sildenafil on demand On combination chlorthalidone, metoprolol, lisinopril [facility] Medical History Elevated cholesterol GERD (gastroesophageal reflux disease) HTN (hypertension) Umbilical hernia Erectile dysfunction BPH (benign prostatic hyperplasia) Kidney stone Elevated PSA Surgical History Hx of hemorrhoidectomy H/O colonoscopy Hx of lithotripsy History of hernia repair History of prostate biopsy Family History Sister Breast cancer Social History Alcohol intake: never Review of Systems Const Denies chills and Denies fever(s) Card Reports no additional complaints and Denies syncope Resp Denies cough GI Denies abdominal pain and Denies heartburn Reports as per HPI and Denies change in libido Neuro Denies syncope Psych Denies change in libido Endo Denies change in libido Physical Exam Const General: cooperative, healthy appearing, comfortable and no acute distress Orientation/consciousness: patient oriented x3 HEENT Face and sinus: Yes normal facial exam Mouth: moist mucous membranes Neck Neck: Yes normal visual inspection, Yes full ROM and Yes trachea midline Chest Chest palpation & inspection: normal inspection of the chest Resp Effort & Inspection: normal respiratory effort, able to speak in complete sentences and no respiratory distress GI Inspection: Yes normal to inspection Back/Spine/Pelvis Cervical Spine: normal cervical lordosis Thoracic/Lumbar Spine: thoracic and lumbar spine normal to inspection Skin General skin exam: no rashes or lesions noted Neuro General: patient oriented x3, gait normal, tone normal and moves all extremities Extrem General: Yes normal to inspection and Yes capillary refill normal Office Procedures Cystoscopy Consent Discussed risk and benefit or proposed procedure with the patient. Information consent for procedure given to the patient. Discussed technical aspects, risks, benefits and alternatives in full. Addressed all of the patient's questions and concerns regarding the procedure. The patient demonstrated knowledge and understanding. They wish to proceed with this procedure. Preparation The patient was prepped in the usual manner. A metals analyst was present and in the room. Genitalia was prepped with betadine solution in a sterile manner. Lidocaine Jelly 2% was placed into the urethra and 16Fr flexible Olympus cystoscope was inserted into the meatus after adequate lubrication. Procedure Cystoscopy performed using a disposable Urovue digital 16 Iraqi cystoscope. Meatus normal Urethra anterior posterior urethra normal Prostatic Urethra trilobar hyperplasia Bladder examination with retroflexion of cystoscope Bladder Orifices normal shape and position Bladder Capacity median Trabeculations mild moderate severe Cellule Formation None Diverticulum Formation none - severity location Mucosal Erythema - Bladder Tumor - [id number] DISPOSABLE SCOPE URO-G FLEXIBLE SCOPE Procedure code (CPT) selection complete Office Meds lidocaine HCl 2 % mucosal jelly in applicator Performing Provider: Miguel Callejas MD Performing Location: [facility] Administered by: Vincent Quiñones LPN on 12/15/23 14:27 Dose Route Admin Location Dispensed Lot Number Expiration Date ND Infrastructure Engineer 10 mL intra-urethral 10 mL nitrofurantoin monohydrate/macrocrystals 100 mg capsule Performing Provider: Miguel Callejas MD Performing Location: [facility] Administered by: Vincent Quiñones LPN on 12/15/23 14:27 Dose Route Admin Location Dispensed Lot Number Expiration Date NDC Infrastructure Engineer 100 mg PO 1 cap naproxen 500 mg tablet Performing Provider: Miguel Callejas MD Performing Location: [facility] Administered by: Vincent Quiñones LPN on 12/15/23 14:27 Dose Route Admin Location Dispensed Lot Number Expiration Date NDC Infrastructure Engineer 500 mg PO 1 tab Results AMB Urinalysis, Automated UA Leukoctes 0 Matthew/uL Last Edit by OLGA Glasgow on 12/15/23 14:22 UA Nitrite Negative Last Edit by OLGA Glasgow on 12/15/23 14:22 UA Urobilinogen 1 mg/dL Last Edit by OLGA Glasgow on 12/15/23 14:22 UA Protein 15 mg/dL Last Edit by OLGA Glasgow on 12/15/23 14:22 UA pH 6.0 Last Edit by OLGA Glasgow on 12/15/23 14:22 UA Blood 0 Jerome/uL Last Edit by OLGA Glasgow on 12/15/23 14:22 UA Specific Ewing 1.015 Last Edit by OLAG Glasgow on 12/15/23 14: 22 UA Ketone Negative Last Edit by OLGA Glasgow on 12/15/23 14:22 UA Bilirubin 0 mg/dL Last Edit by OLGA Glasgow on 12/15/23 14:22 UA Glucose 0 mg/dL Last Edit by OLGA Glasgow on 12/15/23 14:22 Results Reviewed Results Reviewed: Laboratory Last Values Urine pH (Auto) 6.0 12/15/23 14:21 Specific Ewing (Auto) 1.015 12/15/23 14:21 Urine Protein (Auto) 15 mg/dL 12/15/23 14:21 Glucose (UA)(Auto) 0 mg/dL 12/15/23 14:21 Urine Ketones (Auto) Negative 12/15/23 14:21 Urine Blood (Auto) 0 Jerome/uL 12/15/23 14:21 Urine Nitrite (Auto) Negative 12/15/23 14:21 Urine Bilirubin (Auto) 0 mg/dL 12/15/23 14:21 Urine Urobilinogen (Auto) 1 mg/dL 12/15/23 14:21 Leukocyte Esterase (Auto) 0 Matthew/uL 12/15/23 14:21 Assessment & Plan Assessment & Plan (1) Erectile dysfunction: Code(s): N52.9 - Male erectile dysfunction, unspecified Category: Medical (2) Weak urinary stream: Code(s): R39.12 - Poor urinary stream Category: Medical (3) BPH (benign prostatic hyperplasia): Code(s): N40.0 - Benign prostatic hyperplasia without lower urinary tract symptoms Category: Medical Plan We discussed the nature of the decision and reasonable options for performing a prostate intervention. Interventions include TURP, GreenLight laser enucleation of the prostate, GreenLight laser ablation of the prostate, transurethral incision of the prostate, and I-Tend prostate procedure. Options such as medical therapy were discussed. The relative uncertainties and benefits related to each alternate procedure were adequately discussed. General surgical risks including, but not limited to, pain, bleeding, infection, myocardial infarction, pulmonary embolus, deep vein thrombosis and cerebrovascular accident which may result in further hospitalization were discussed. Full disclosure of the procedure as well as all major risks, benefits and complications were discussed including but not limited to damage to the urethra or bladder neck, recurrent BPH, retrograde ejaculation, bladder infection, urge, de yissel frequency, incomplete emptying, dysuria, remote chance of erectile dysfunction, epididymitis, and meatal stenosis. The success rate of the procedure was discussed. Success of the procedure in the short-term does not necessarily guarantee that long-term success will be maintained. Suitable follow up will need to be maintained. The patient showed understanding of discussion. An opportunity was provided for questions to be answered and wishes to proceed with the following procedure. - GreenLight laser Orders: Orders AMB Cystoscopy 12/15/23 R39.12 - Poor urinary stream AMB Urinalysis Automated 12/15/23 Z13.9 - Encounter for screening, unspecified Patient Instructions: Imaging studies, laboratory and physical exam results were discussed and reviewed in detail. No major barriers to patient understanding were identified. An opportunity to ask questions regarding the treatment plan was provided. All questions were answered. The patient expressed understanding and agreement with the above treatment plan. The patient is aware they should contact our office by phone for worsening of their current condition or the appearance of new urologic symptoms. Compliance is encouraged with any medications and followup testing that is ordered. It is a privilege to participate in the urologic care of your patient. If you have any questions or concerns regarding treatment for the above conditions, or other urologic issues, please do not hesitate to contact me. The office telephone contact is [phone]. This note is constructed using voice recognition software. While every effort has been made to ensure accuracy internet manager errors may have been included. Yours sincerely, Dr Miguel Callejas MD, [facility] - Urology Providers of Expert, Compassionate Care for the Genitourinary System Coding Level of Care Code Est Pt Level 4 (67367) Diagnoses Erectile dysfunction N52.9 Weak urinary stream R39.12 BPH (benign prostatic hyperplasia) N40.0 CPT Codes Cystoscopy - CPT: [id number] ([id number])
== END 2023-12-15 15:06 | disposition home or self-care (01) ==
PROVIDERS: PCP Student in an Organized Health Care Education/Training Program; Visit Provider Urology
DX: R39.12 Poor urinary stream (principal); Z13.9 Encounter for screening, unspecified
CPT/HCPCS: 52000; 99214

== ENCOUNTER → 2023-12-15 13:17 | Outpatient (BNVA) | payer MEDICARE, SELFPAY | PROVIDERS: PCP Student in an Organized Health Care Education/Training Program; Visit Provider Urology | DX: N40.1 Benign prostatic hyperplasia with lower urinary tract symptoms (principal); R39.12 Poor urinary stream; N52.9 Male erectile dysfunction, unspecified | CPT/HCPCS: 52000; 81003; 99212 ==

== ENCOUNTER 2024-03-09 12:07 | Outpatient (AMB) | payer MEDICARE, SELFPAY ==
--- NOTE | 2024-03-09 12:11 | MHC.OFFVIS ---
Intake Visit Reasons: Questions on Greenlight procedure Intake Note: Patient is Present for Telephone Discussion on Greenlight Laser procedure Urology Med: Finasteride, Tamsulosin, Sildenafil Antibiotic Allergy: None Blood Thinner: Aspirin Political Worker Required: Yes Political Worker Language: Hungarian Information Interpreted: clinical only Accompanied by: Self / Same As Patient Allergies codeine [CODEINE] Allergy (Intermediate, Verified 03/09/24 12:13) CONFUSION; DIZZYNESS oxycodone [From PERCOCET] Allergy (Intermediate, Verified 03/09/24 12:13) confusion/dizziness HPI Comments Details: Gabino is a pleasant male. He is a patient of Dr. Forde. He seen for the following urologic conditions - lower urinary tract symptoms - elevated PSA - nephrolithiasis - erectile dysfunction Telemedicine Evaluation 15 min Consultation [employer] [facility] Alicia Video attempted Combination finasteride and tamsulosin Plan for GreenLight laser prostate Questions answered Non impact on erections from laser procedure Catheter for 3-4 days 2-3 weeks of urge and frequency Nephrolithiasis Imaging 03/26 renal ultrasound negative 09/24 - renal ultrasound 3 mm stone left, bilateral 1.5 cm cyst Bosniak 1 10/26 - renal ultrasound bilateral Bosniak 1 cysts Lower urinary tract symptoms Ongoing Current therapy finasteride and tamsulosin PSA 03/26 6.0, 10/25 3.9, 10/26 3.9 Prior prostate biopsy negative Bladder ultrasound - 11/25 - 30 cc residual, prostate 125 g Cystoscopy with large obstructing prostate Erectile dysfunction Sildenafil on demand On combination chlorthalidone, metoprolol, lisinopril PFSH Medical History Elevated cholesterol GERD (gastroesophageal reflux disease) HTN (hypertension) Umbilical hernia Erectile dysfunction BPH (benign prostatic hyperplasia) Kidney stone Elevated PSA Surgical History Hx of hemorrhoidectomy H/O colonoscopy Hx of lithotripsy History of hernia repair History of prostate biopsy Family History Sister Breast cancer Social History Alcohol intake: never Review of Systems Const All systems reviewed & are unremarkable except as noted in HPI and below Reports no additional complaints Resp Reports no additional complaints GI Reports no additional complaints Reports as per HPI Musc Reports no additional complaints Physical Exam Telemedicine evaluation Appropriate responses Regular breathing rate and rhythm HEENT Head: Yes normal to inspection Ears: hearing grossly normal bilaterally Eyes General: appearance normal, both eyes and all related structures Neck Neck: Yes normal visual inspection Chest Chest palpation & inspection: normal inspection of the chest Resp Effort & Inspection: normal respiratory effort and able to speak in complete sentences Telehealth Telehealth Telehealth Platform: [employer] Location of provider rendering services: practice address Location of patient: address on file Patient Identification confirmed using: Name, : Yes Telehealth method: video Patient verbally consented to treatment: Yes Patient verbally consented to billing insurance company: Yes Patient informed of any privacy concerns related to visit: Yes Minutes spent on Phone/Video with Pt.: 15 Assessment & Plan Assessment & Plan (1) Weak urinary stream: Code(s): R39.12 - Poor urinary stream Category: Medical (2) BPH (benign prostatic hyperplasia): Code(s): N40.0 - Benign prostatic hyperplasia without lower urinary tract symptoms Category: Medical (3) Erectile dysfunction: Code(s): N52.9 - Male erectile dysfunction, unspecified Category: Medical Plan GreenLight laser procedure is planned Patient Instructions: Imaging studies, laboratory and physical exam results were discussed and reviewed in detail. No major barriers to patient understanding were identified. An opportunity to ask questions regarding the treatment plan was provided. All questions were answered. The patient expressed understanding and agreement with the above treatment plan. The patient is aware they should contact our office by phone for worsening of their current condition or the appearance of new urologic symptoms. Compliance is encouraged with any medications and followup testing that is ordered. It is a privilege to participate in the urologic care of your patient. If you have any questions or concerns regarding treatment for the above conditions, or other urologic issues, please do not hesitate to contact me. The office telephone contact is [phone]. This note is constructed using voice recognition software. While every effort has been made to ensure accuracy windows architect errors may have been included. Yours sincerely, Dr Miguel Callejas MD, [facility] - Urology Providers of Expert, Compassionate Care for the Genitourinary System Coding Level of Care Code Tele Est Pt Level 3 (39499) Diagnoses Weak urinary stream R39.12 BPH (benign prostatic hyperplasia) N40.0 Erectile dysfunction N52.9
== END 2024-03-09 14:18 | disposition home or self-care (01) ==
LOC: HO.HUSH 12:07
PROVIDERS: PCP Student in an Organized Health Care Education/Training Program; Visit Provider Urology
DX: R39.12 Poor urinary stream (principal); N40.0 Benign prostatic hyperplasia without lower urinary tract symptoms; N52.9 Male erectile dysfunction, unspecified
CPT/HCPCS: 99213

== ENCOUNTER → 2024-03-09 12:07 | Outpatient (BNVA) | payer MEDICARE, SELFPAY | PROVIDERS: PCP Student in an Organized Health Care Education/Training Program; Visit Provider Urology ==

== ENCOUNTER 2024-03-20 05:53 | Day surgery (SDC) | payer MEDICARE, SELFPAY ==
[2024-03-16 07:26] VITALS: BMI 35.0
--- NOTE | 2024-03-17 09:21 | HO.ANESPROP2 ---
Documented by User: Angi Ponce NP 03/17/24 09:26 HPI - Anesthesia Eval Consult details Narrative: 74yo M for Laser Ablation Prostate w/Green Light Cardiac optimized. Follows [facility] for CAD. (Previous tx for afib, but no confirmed evidence) PMFSH Active Problems Active Problems: All Active Problems Weak urinary stream (Acute) Fungal infection of the groin (Acute) Erectile dysfunction (Acute) Elevated PSA (Acute) BPH (benign prostatic hyperplasia) (Acute) Umbilical hernia (Acute) Kidney stone (Acute) Past Medical History Medical History CAD (coronary artery disease) Hyperlipidemia Elevated cholesterol GERD (gastroesophageal reflux disease) HTN (hypertension) Umbilical hernia Erectile dysfunction BPH (benign prostatic hyperplasia) Kidney stone Elevated PSA Family History Family History Sister Breast cancer Surgical History Surgical History Hx of cardiac catheterization Hx of hemorrhoidectomy H/O colonoscopy Hx of lithotripsy History of hernia repair History of prostate biopsy Social History Social History Household Members Other:: sister living with him temporarily Are you a primary healthcare risk control consultant to a significant other at home: No Do you presently have visiting nurse or other home services: No Alcohol intake: never Patient Tobacco Use Status: Former Tobacco user Have you been hit, kicked, punched, or otherwise hurt by someone within the past year? If so, by whom?: No Are you DNR?: No Advance Directives: No Advance Directives Information Provided: Yes Recently lost weight without trying: No Nutrition Risks: No Nutritional Risk Poor oral hygiene: No Meds Allergies Allergy/AdvReac Type Severity Reaction Status Date / Time codeine [CODEINE] Allergy Intermediate CONFUSION; Verified 03/20/24 06:40 DIZZYNESS oxycodone [From PERCOCET] Allergy Intermediate confusion/d Verified 03/20/24 06:40 izziness Home Medications ?Medication ?Instructions ?Recorded ?Confirmed ?Last Taken ?Type aspirin 81 mg tablet,delayed 81 mg PO DAILY 07/01/20 03/20/24 03/13/24 History release (Adult Low Dose Aspirin) omeprazole 20 mg capsule,delayed 20 mg PO DAILY 07/01/20 03/20/24 11/12/20 History release hydralazine 10 mg tablet 10 mg PO BEDTIME 11/06/20 03/20/24 Unknown History lisinopril 40 mg tablet 40 mg PO DAILY 11/06/20 03/20/24 Unknown History chlorthalidone 25 mg tablet 25 mg PO QAM 03/30/22 03/20/24 Unknown History latanoprost 0.005 % eye drops 1 drp ophthalmic (eye) BEDTIME 03/30/22 03/20/24 Unknown History sildenafil 50 mg tablet (Viagra) 50 mg PO DAILY PRN Erectile 03/30/22 03/20/24 Unknown History Dysfunction simvastatin 10 mg tablet 10 mg PO QPM 03/30/22 03/20/24 Unknown History verapamil 120 mg 24 hr 240 mg PO QAM 03/30/22 03/20/24 Unknown History capsule,extended release metoprolol succinate 100 mg 100 mg PO DAILY 10/13/22 03/20/24 Unknown History tablet,extended release 24 hr amlodipine 5 mg tablet 5 mg PO DAILY 03/09/24 03/20/24 Unknown History hydrochlorothiazide 12.5 mg capsule 12.5 mg PO DAILY 03/09/24 03/20/24 Unknown History Exam Height,Weight and Vital Signs: Height 5 ft 9 in Weight 107.501 kg Narrative Narrative: Testing per clearance note: EKG in office 02/2024 SR @ 61, no sigificant abnomalities ECHO 09/2022 Nml LV sys function - limited study Cath 2022 No obstructive CAD, 30% stenosis in LAD Loop recorder report 02/2024: No new episodes with 0% AT/AF burden. No documented AT/AF burden on ILR Assessment and Plan Assessment Anesthesia Assessment: Chart Reviewed Documented by User: Carissa Moore MD 03/20/24 07:13 [facility] Past Medical History Medical History CAD (coronary artery disease) Hyperlipidemia Elevated cholesterol GERD (gastroesophageal reflux disease) HTN (hypertension) Umbilical hernia Erectile dysfunction BPH (benign prostatic hyperplasia) Kidney stone Elevated PSA Family History Family History Sister Breast cancer Family history of problems with anesthesia: No Surgical History Surgical History Hx of cardiac catheterization Hx of hemorrhoidectomy H/O colonoscopy Hx of lithotripsy History of hernia repair History of prostate biopsy History of Problems with Anesthesia: No Social History Social History Household Members Other:: sister living with him temporarily Are you a primary healthcare risk control consultant to a significant other at home: No Do you presently have visiting nurse or other home services: No Alcohol intake: never Patient Tobacco Use Status: Former Tobacco user Have you been hit, kicked, punched, or otherwise hurt by someone within the past year? If so, by whom?: No Are you DNR?: No Advance Directives: No Advance Directives Information Provided: Yes Recently lost weight without trying: No Nutrition Risks: No Nutritional Risk Poor oral hygiene: No Meds Allergies Allergy/AdvReac Type Severity Reaction Status Date / Time codeine [CODEINE] Allergy Intermediate CONFUSION; Verified 03/20/24 06:40 DIZZYNESS oxycodone [From PERCOCET] Allergy Intermediate confusion/d Verified 03/20/24 06:40 izziness Home Medications ?Medication ?Instructions ?Recorded ?Confirmed ?Last Taken ?Type aspirin 81 mg tablet,delayed 81 mg PO DAILY 07/01/20 03/20/24 03/13/24 History release (Adult Low Dose Aspirin) omeprazole 20 mg capsule,delayed 20 mg PO DAILY 07/01/20 03/20/24 11/12/20 History release hydralazine 10 mg tablet 10 mg PO BEDTIME 11/06/20 03/20/24 Unknown History lisinopril 40 mg tablet 40 mg PO DAILY 11/06/20 03/20/24 Unknown History chlorthalidone 25 mg tablet 25 mg PO QAM 03/30/22 03/20/24 Unknown History latanoprost 0.005 % eye drops 1 drp ophthalmic (eye) BEDTIME 03/30/22 03/20/24 Unknown History sildenafil 50 mg tablet (Viagra) 50 mg PO DAILY PRN Erectile 03/30/22 03/20/24 Unknown History Dysfunction simvastatin 10 mg tablet 10 mg PO QPM 03/30/22 03/20/24 Unknown History verapamil 120 mg 24 hr 240 mg PO QAM 03/30/22 03/20/24 Unknown History capsule,extended release metoprolol succinate 100 mg 100 mg PO DAILY 10/13/22 03/20/24 Unknown History tablet,extended release 24 hr amlodipine 5 mg tablet 5 mg PO DAILY 03/09/24 03/20/24 Unknown History hydrochlorothiazide 12.5 mg capsule 12.5 mg PO DAILY 03/09/24 03/20/24 Unknown History Exam Airway Mallampati Class: III (missing multiole teeth, denies anything loose) TM Dist: >3cm Neck ROM: Full Heart: rrr Lungs: cta Assessment and Plan Assessment Anesthesia Assessment: Anesthesia Plan Discussed Final Anesthetic Review Family History of Problems with Anesthesia: No History of Problems with Anesthesia: No NPO: Yes ASA Class: III Final Preanesthetic Review: No Changes in Pt Med Stat, Meds/Allgs Chart Reviewed and Consent Obtained/Reviewed Patient Risk: Intermediate Procedure Risk: Intermediate Anesthetic Plan Anesthetic Plan: GA Disposition: Standard PACU
[2024-03-20] VITALS (8 sets, daily range): BP systolic 128–163; BP diastolic 66–92; PULSE 64–76; RESP 12–18; TEMP 36.1–36.7; O2SAT 96–98; BMI 35.0
[2024-03-20] MEDS: Lactated Ringers 1,000 ML 100 ML IVCONT (06:30)
--- NOTE | 2024-03-20 07:28 | MHC.SHP ---
Pre-Procedural Eval Section A - 24 Hr Update-Section A only Date of Service: 03/20/24 The patient is an INPATIENT: No Changes since office visit: No Cold of Flu in the past 2 weeks, No New Medical Problems, No Changes in Medication and No Patient answered all questions The patient has been examined within 24 hours of the surgical procedure. The History & Physical has been completed within 30 days and I have reviewed it.: Yes Section B - Complete if H&P > 30 days Chief Complaint: Benign prostatic hyperplasia without lower urinary Details of Present Illness: GreenLight laser prostate enucleation Relevant Family History (Specify if Yes): No Relevant Social History: None Present Medications: see Short Stay Collaborative assessment Medical History: No relevant PMH History of Previous Operations: No relevant previous surgery Allergies: Allergies Allergy/AdvReac Type Severity Reaction Status Date / Time codeine [CODEINE] Allergy Intermediate CONFUSION; Verified 03/20/24 06:40 DIZZYNESS oxycodone [From PERCOCET] Allergy Intermediate confusion/d Verified 03/20/24 06:40 izziness Review of Systems Sugical H&P ROS: Negative: Constitution, Cardiovascular, Respiratory, Neurological, Psychiatric, Hem-Onc, Allergic/Immunologic, Gastrointestinal, Genitourinary, Musculoskeletal, Integumentary, Endocrine and Eyes/Ears/Nose/Throat Exam Surgical H&P Exam: Normal: HEENT, Normal: Heart, Normal: Lungs, Normal: Extremities, Normal: Abdomen, Normal: Skin and Normal: Neurological Plan Diagnosis/Plan: Unchanged (GreenLight laser prostate enucleation) I have reviewed the history and physical and performed a pertinent physical examination on my patient. No changes have occurred unless specified. Time Spent With Patient Time: Total time managing care of this patient today ____ minutes.
--- NOTE | 2024-03-20 08:31 | W.PM.OPN ---
Operative Note Operative Note Date of Service: 03/20/24 Narrative: PreOperative Diagnosis: Bladder outlet obstruction Post Operative Diagnosis: Bladder outlet obstruction Procedure: GreenLight Laser Enucleation of the prostate CPT 24496 Surgeon: Dr Miguel Callejas Anesthesia: General History of bladder outlet obstruction. Treated with alpha-tomasz and other medications. Still with symptoms. On cystoscopy in office has trilobar prostate. Recommendation for prostate procedure with laser enucleation of prostate. Risks and benefits have been discussed. Focus was placed on development of retrograde ejaculation which is a normal part of this procedure. Procedure: After informed consent was verified the patient was brought to the operating room and placed in a supine position. Anesthesia was administered per protocol. Patient was placed in modified dorsal lithotomy position and prepped and draped in a sterile fashion. Safety pause time-out was confirmed. Antibiotics have been given. A Twenty-four Vincentian laser cystoscope was inserted per urethra. No abnormalities were found of the anterior and bulbar urethra. The prostatic urethra shows trilobar hypertrophy The bladder was examined and both ureteric orifices were seen in their normal positions away from the area of interest. Bladder trabeculation grade 2 with glomerulation.. Using a GreenLight laser with settings of 80 perez incisions were made at the 5 and 7 o'clock position. The incisions were taken down from the bladder neck down to the level of the veru. These were gradually deepened in order to define the lateral aspects of the median lobe area. Once clearly defined they will also extended in the lateral directions in order to create a deep groove. The median lobe was then ablated and enucleated tissue released into the bladder with the laser power increased to 120 W. Once the median lobe area had been cleared attention was directed to the lateral lobes. Starting with the patient's left lateral lobe. First the 05:00 o'clock groove was further developed. This was moved in the lateral direction to undermine the tissue on the lateral side running from the bladder neck to the prostate apex. The ureteric orifice was used to guide incisions. Focus was then placed on the laser at the 1 o'clock position to developing a secondary groove down to the level of bladder fibers. The creation of a second deep groove defined a segment of intervening tissue similar to a slice of orange. At the apex of the prostate the 2 grooves were linked the us releasing the intervening tissue. This tissue was then removed with a combination of enucleation and ablation working from the apex toward the bladder neck. A similar procedure was repeated on the patient's right-hand side. The only differences being the position of the lateral groove at he 7 o'clock position and the secondary groove at the 11 o'clock position, Otherwise the procedure was developed in a mirror fashion. After the majority of tissue had been debulked remnant tissue was ablated with the side fire laser and the curve of the prostate followed up each side wall clearly defining the anterior remnant strip that remained between the 11 and 1 o'clock positions. In this case the anterior tissue protruded into the prostatic fossa and was partially ablated with the laser When this was had been completed debris and pieces of prostate were removed from the bladder with irrigation. Both ureteric orifices were reviewed again in shown to be patent in away from any areas of energy damage. The apical area was reviewed in any stray ooze was controlled. A 22 Vincentian 30 cc balloon Alexis catheter was placed over a stylet into the bladder. Clear efflux was obtained upon irrigation with a Jr piston syringe. 30 cc was placed in the balloon and gentle traction was placed. A snap was used to hold tension on the catheter to control bleeding during patient moved and transported. A drainage bag was placed. Once transportation is complete to the PACU the snap will be removed. The patient tolerated the procedure well, he was extubated in the operating and transferred in a stable condition to the recovery area. Total Power 135 kW Lasing time 20:45 Pathology: Prostate tissue Drains: Alexis catheter
== END 2024-03-20 11:06 | disposition home or self-care (01) ==
PROVIDERS: Visit Provider Urology
PROC: (CPT 52648; principal; 2024-03-20 07:30)
DX: N40.1 Benign prostatic hyperplasia with lower urinary tract symptoms (principal); N13.8 Other obstructive and reflux uropathy; R39.12 Poor urinary stream; N52.9 Male erectile dysfunction, unspecified; R97.20 Elevated prostate specific antigen [PSA]; I10 Essential (primary) hypertension; I25.10 Atherosclerotic heart disease of native coronary artery without angina pectoris; E78.00 Pure hypercholesterolemia, unspecified; Z79.82 Long term (current) use of aspirin; Z79.899 Other long term (current) drug therapy; Z88.5 Allergy status to narcotic agent; Z87.442 Personal history of urinary calculi; Z98.890 Other specified postprocedural states
CPT/HCPCS: 52649; 88305; J1100; J1956; J2250; J2405; J2704; J3010

== ENCOUNTER → 2024-03-20 05:53 | Outpatient (BNV) | payer MEDICARE, SELFPAY | PROVIDERS: Visit Provider Urology | DX: N40.0 Benign prostatic hyperplasia without lower urinary tract symptoms (principal) | CPT/HCPCS: 52649 ==

== ENCOUNTER → 2024-03-23 09:27 | Outpatient (BNVA) | payer MEDICARE, SELFPAY | PROVIDERS: PCP Student in an Organized Health Care Education/Training Program; Visit Provider Urology | DX: N40.1 Benign prostatic hyperplasia with lower urinary tract symptoms (principal); R39.12 Poor urinary stream; R97.20 Elevated prostate specific antigen [PSA] | CPT/HCPCS: 51700; 51798 ==

== ENCOUNTER 2024-04-23 19:24 | Emergency (ER) | payer MEDICARE, SELFPAY ==
[2024-04-23 19:34] VITALS: BP 155/82; PULSE 73; RESP 18; TEMP 36.5; O2SAT 96; BMI 34.9
--- NOTE | 2024-04-23 19:44 | ED_ITS ---
HPI - General Adult General Chief complaint: General Medical Stated complaint: Rectal bleeding Time Seen by Provider: 04/23/24 22:12 Source: patient Mode of arrival: ambulatory Limitations: no limitations History of Present Illness ED Provider: laura TRINIDAD narrative: Patient's history of hemorrhoids had prostate surgery in last month complaining of bleeding per rectum with pain for last 2 days also complaining of pinkish color urine no fever no chills no abdominal pain patient did have hemorrhoid repair in the past rectal bleeding was dark red in color in no melena no clots Related Data Home Medications ?Medication ?Instructions ?Recorded ?Confirmed aspirin 81 mg tablet,delayed 81 mg PO DAILY 07/01/20 03/20/24 release (Adult Low Dose Aspirin) omeprazole 20 mg capsule,delayed 20 mg PO DAILY 07/01/20 03/20/24 release hydralazine 10 mg tablet 10 mg PO BEDTIME 11/06/20 03/20/24 lisinopril 40 mg tablet 40 mg PO DAILY 11/06/20 03/20/24 chlorthalidone 25 mg tablet 25 mg PO QAM 03/30/22 03/20/24 latanoprost 0.005 % eye drops 1 drp ophthalmic (eye) BEDTIME 03/30/22 03/20/24 sildenafil 50 mg tablet (Viagra) 50 mg PO DAILY PRN Erectile 03/30/22 03/20/24 Dysfunction simvastatin 10 mg tablet 10 mg PO QPM 03/30/22 03/20/24 verapamil 120 mg 24 hr 240 mg PO QAM 03/30/22 03/20/24 capsule,extended release metoprolol succinate 100 mg 100 mg PO DAILY 10/13/22 03/20/24 tablet,extended release 24 hr amlodipine 5 mg tablet 5 mg PO DAILY 03/09/24 03/20/24 hydrochlorothiazide 12.5 mg capsule 12.5 mg PO DAILY 03/09/24 03/20/24 Previous Rx's ?Medication ?Instructions ?Recorded ketorolac 10 mg tablet 10 mg PO TID PRN pain 5 days #7 12/16/21 tabs terbinafine HCl 250 mg tablet 250 mg PO DAILY 7 days #7 tabs 10/13/22 finasteride 5 mg tablet 5 mg PO DAILY 90 days #90 tabs 11/03/23 tamsulosin 0.4 mg capsule 0.4 mg PO BEDTIME 90 days #90 caps 11/03/23 sildenafil 100 mg tablet 100 mg PO DAILY PRN Erectile 12/15/23 Dysfunction 30 days #30 tabs hydrocortisone acetate 25 mg 25 mg [place] BID #12 ea 04/23/24 rectal suppository (Anusol-HC) levofloxacin 500 mg tablet 500 mg PO DAILY 7 days #7 tabs 04/23/24 Allergies Allergy/AdvReac Type Severity Reaction Status Date / Time codeine [CODEINE] Allergy Intermediate CONFUSION; Verified 04/23/24 19:37 DIZZYNESS oxycodone [From PERCOCET] Allergy Intermediate confusion/d Verified 04/23/24 19:37 izziness Review of Systems 2 Review of Systems: Yes all other systems are reviewed and are negative [facility] Past Medical History Medical History (Updated 04/24/24 @ 00:01 by Martin Ro) CAD (coronary artery disease) Hyperlipidemia Elevated cholesterol GERD (gastroesophageal reflux disease) HTN (hypertension) Umbilical hernia Erectile dysfunction BPH (benign prostatic hyperplasia) Kidney stone Elevated PSA Surgical History Hx of cardiac catheterization Hx of hemorrhoidectomy H/O colonoscopy Hx of lithotripsy History of hernia repair History of prostate biopsy Family History Family History Sister Breast cancer Social History Social History Household Members Other:: sister living with him temporarily Are you a primary intensive care ambulance paramedic to a significant other at home: No Do you presently have visiting nurse or other home services: No Alcohol intake: never Patient Tobacco Use Status: Former Tobacco user Smoked in Last 30 Days: No Use of substances other than those prescribed or required for medical reasons: No Advance Directives: No Advance Directives Information Provided: No Physical Exam ED Vital Signs: Vital Signs - 24 hr 04/23/24 19:34 04/23/24 20:13 04/23/24 23:17 Temperature 97.7 F 98.2 F 97.6 F Pulse Rate 73 70 67 Respiratory Rate 18 16 16 Blood Pressure 155/82 H 137/87 138/89 Pulse Oximetry 96 96 95 Oxygen Delivery Method Room Air Room Air Room Air 04/23/24 23:31 Temperature 97.6 F Pulse Rate 67 Respiratory Rate 16 Blood Pressure 138/67 Pulse Oximetry 98 Oxygen Delivery Method Room Air BMI result Body Mass Index 34.9 Appearance: Alert. Oriented X3. No acute distress. Eyes: PERRLA, No Nystagmus ENT: Pharynx normal. Oral Mucosa moist Neck: Normal inspection. Neck supple. CVS: Normal heart rate and rhythm. Pulses normal. Respiratory: No respiratory distress. Equal air entry bilateral, no wheezing/rales/rhonchi Abdomen: Soft and nontender. Bowel sounds are present, no mass palpable, no CVA tenderness rectal: Brown stool hemorrhoids palpable no blood on the tip of the finger Skin: Skin warm and dry. Normal skin color. Normal skin turgor. Extremities: No lower extremity edema. No calf tenderness Neuro: Oriented X 3. No motor deficit. No sensory deficit.No cerebellar signs , cranial nerves II-XII intact Course Course Course Narrative: This is a Rapid Medical Examination (RME) performed by Wisam Pham PA-C in triage. Full HPI, ROS, assessment and treatment plan per primary provider in the Main ED. 74 yo kyrgyz speaking male hx of CAD on aspirin, HDL, GERD, HTN, ED, BPH, renal stones here for eval of constipation. reports dark red blood in his stool yesterday which has continued today. History of hemorrhoids requiring surgical repair. Also endorses pain with urination. Admits to surgery 5 1/2 weeks ago by urologist to stop my urinary freqiency . denies fever, chills. no thinners. Plan: labs, UA Medications Administered Discontinued Medications Generic Name Dose Route Start Last Admin Trade Name Freq PRN Reason Stop Dose Admin Levofloxacin 500 mg 04/23/24 23:14 04/23/24 23:23 Levofloxacin 500 Mg Tablet PO 04/23/24 23:15 500 mg ONCE ONE Administration Medical Decision Making Medical Decision Making [facility] Narrative: Patient's guaiac test was negative H&H stable likely patient had bleed from the hemorrhoids which were palpable H&H stable will discharge patient home advised to follow up with PCP and senior label specialist patient did noticed to have UTI will prescribe Levaquin Lab Data [facility] Lab Attestation statement: I reviewed the patient's lab results. 04/23/24 19:53 04/23/24 19:53 Labs: Lab Results 10/20/24 10/20/24 10/20/24 Range/Units 19:53 20:10 22:36 WBC 5.9 (4.8-10.8) X10*3/uL RBC 4.21 L (4.60-5.80) X10*6/uL Hgb 13.1 L (14.0-18.0) g/dl Hct 38.5 L (42.0-52.0) % MCV 91.4 (80.0-98.0) fL MCH 31.1 (27.0-33.0) pg MCHC 34.0 (31.0-36.0) g/dl RDW 12.3 (11.0-16.0) % Plt Count 211 (160-400) X10*3/uL MPV 10.1 (9.4-12.4) fL Immature Gran % (Auto) 0.3 (0.0-0.4) % Neut % (Auto) 59.6 (45-73) % Lymph % (Auto) 27.0 (20-40) % Maries % (Auto) 9.0 (2-11) % Eos % (Auto) 3.6 (0-4) % Baso % (Auto) 0.5 (0-2) % Lymph # (Auto) 1.6 (1.2-4.9) X10*3/uL Maries # (Auto) 0.5 (0.1-1.2) X10*3/uL Eos # (Auto) 0.2 (0.0-0.4) X10*3/uL Baso # (Auto) 0.0 (0.0-0.2) X10*3/uL Abs Immat Gran (auto) 0.02 (0.00-0.03) X10*3/uL Absolute Neuts (auto) 3.5 (2.0-8.3) x10*3/uL Absolute Nucleated RBC 0.000 (0.0-0.012) X10*3/uL Nucleated RBC % (auto) 0.0 (0.0-0.2) /100WBC Smear Tech's Comments VERIFIED Sodium 141 (135-145) mmol/L Potassium 4.0 (3.3-5.1) mmol/L Chloride 106 (96-108) mmol/L Carbon Dioxide 27 (22-29) mmol/L Anion Gap 12 (12-20) BUN 18 H (9-16) mg/dL Creatinine 1.10 (0.5-1.4) mg/dL Estim Creat Clear Calc 72.1 Estimated GFR > 60 Random Glucose 139 H (60-115) mg/dL Calcium 8.6 D (8.4-10.2) mg/dL Magnesium 1.8 (1.6-2.6) mg/dL Total Bilirubin 0.5 (0.0-1.0) mg/dL AST 17 (5-37) U/L ALT 15 (0-40) U/L Alkaline Phosphatase 78 (39-117) U/L Total Protein 7.0 (6.5-8.0) g/dL Albumin 4.0 (3.5-5.0) g/dL Lipase 15 (8-78) U/L Urine Color Dark Yellow Urine Appearance Turbid Urine pH 6.0 (5.0-9.0) Ur Specific Paulina >= 1.030 H (1.005-1.025) Urine Protein 300 (3+) H (Neg-Trace) mg/dL Urine Glucose (UA) Negative (Negative) mg/dL Urine Ketones Negative (Negative) mg/dL Urine Blood Large (3+) H (Negative) Urine Nitrite Negative (Negative) Ur Leukocyte Esterase Large (3+) H (Negative) Urine RBC >20 H (0-2) /HPF Urine WBC >50 H (0-5) /HPF Ur Squamous Epith Cells 0-2 (0-2) /HPF Urine Bacteria 2+ (None Seen) Hyaline Casts 6-10 (0-2) /LPF Stool Occult Blood NEGATIVE (NEGATIVE) Discharge Plan Discharge Clinical Impression: Rectal bleed, Bleeding hemorrhoids, Bacterial UTI Patient Disposition: Home, Self-Care Instructions: Hemorrhoids (ED), Rectal Bleeding (ED), Urinary Tract Infection in Men (DC) Additional Instructions: Avoid constipation Take antibiotic as prescribed Suppository twice a day for rectal bleeding Drink plenty of fluids Report to the ER if worsening of the rectal bleeding/abdominal pain Prescriptions: New levofloxacin 500 mg tablet 500 mg PO DAILY 7 Days Qty: 7 0RF hydrocortisone acetate [Anusol-HC] 25 mg suppository 25 mg W[place] BID Qty: 12 0RF No Action tamsulosin 0.4 mg capsule 0.4 mg PO BEDTIME 90 Days Qty: 90 3RF finasteride 5 mg tablet 5 mg PO DAILY 90 Days Qty: 90 3RF hydralazine 10 mg tablet 10 mg PO BEDTIME lisinopril 40 mg tablet 40 mg PO DAILY ketorolac 10 mg tablet 10 mg PO TID PRN (Reason: pain) 5 Days Qty: 7 0RF omeprazole 20 mg capsule,delayed release(DR/EC) 20 mg PO DAILY aspirin [Adult Low Dose Aspirin] 81 mg tablet,delayed release (DR/EC) 81 mg PO DAILY sildenafil 100 mg tablet 100 mg PO DAILY PRN (Reason: Erectile Dysfunction) 30 Days Qty: 30 0RF Rx Instructions: administer 30 minutes to 4 hours before activity verapamil 120 mg capsule,ext rel. pellets 24 hr 240 mg PO QAM chlorthalidone 25 mg tablet 25 mg PO QAM simvastatin 10 mg tablet 10 mg PO QPM latanoprost 0.005 % drops 1 drp ophthalmic (eye) BEDTIME sildenafil [Viagra] 50 mg tablet 50 mg PO DAILY PRN (Reason: Erectile Dysfunction) metoprolol succinate 100 mg tablet extended release 24 hr 100 mg PO DAILY terbinafine HCl 250 mg tablet 250 mg PO DAILY 7 Days Qty: 7 0RF hydrochlorothiazide 12.5 mg capsule 12.5 mg PO DAILY amlodipine 5 mg tablet 5 mg PO DAILY Interventions: ED Discharge Assessment Last Done: 04/23/24 23:31 Discharge Date/Time: 04/23/24 23:32 Print Language: Tajik
[2024-04-23 20:06] LABS: Basophils Percent Auto 0.5 % (0-2); Eosinophils Absolute Auto 0.2 X10*3/uL (0.0-0.4); Eosinophils Percent Auto 3.6 % (0-4); Hematocrit 38.5 % (42.0-52.0); Hemoglobin 13.1 g/dl (14.0-18.0); Imm Gran Abs Auto 0.02 X10*3/uL (0.00-0.03); Imm Gran Pct Auto 0.3 % (0.0-0.4); Lymphocytes Absolute Auto 1.6 X10*3/uL (1.2-4.9); MANUAL DIFF FLAG SCAN; Mean Corpuscular Hemoglobin 31.1 pg (27.0-33.0); Mean Corpuscular Volume 91.4 fL (80.0-98.0); Mean Platelet Volume 10.1 fL (9.4-12.4); Monocytes Absolute Auto 0.5 X10*3/uL (0.1-1.2); Neutrophils Absolute Auto 3.5 x10*3/uL (2.0-8.3); Neutrophils Percent Auto 59.6 % (45-73); PLT CLUMP 1; Red Blood Count 4.21 X10*6/uL (4.60-5.80); Red Cell Distribution Width 12.3 % (11.0-16.0); SCAN SMEAR FLAG 1
[2024-04-23 20:13] VITALS: BP 137/87; PULSE 70; RESP 16; TEMP 36.8; O2SAT 96
[2024-04-23 20:21] LABS: Appearance Urine Turbid; Color Urine Dark Yellow; Glucose Urine UA Negative (Negative); Leukocyte Esterase Urine Large (3+) (Negative); Nitrite Urine Negative (Negative); Specific Gravity - Urine >= 1.030 (1.005-1.025); UMIC TRIGGER UACC YES; Urine Blood Large (3+) (Negative); Urine Ketones Negative (Negative); Urine Protein 300 (3+) mg/dL (Neg-Trace)
[2024-04-23 20:24] LABS: Alanine Aminotransferase 15 U/L (0-40); Alkaline Phosphatase 78 U/L (39-117); Anion Gap 12 (12-20); Aspartate Amino Transferase 17 U/L (5-37); Bilirubin Total 0.5 mg/dL (0.0-1.0); Blood Urea Nitrogen 18 mg/dL (9-16); Calcium 8.6 mg/dL (8.4-10.2); Carbon Dioxide 27 mmol/L (22-29); Chloride 106 mmol/L (96-108); Creatinine Clr Calc Pharmacy 72.1; Estimated Glomerular Filt Rate > 60; Glucose Random 139 mg/dL (60-115); Lipase 15 U/L (8-78); Magnesium 1.8 mg/dL (1.6-2.6); Sodium 141 mmol/L (135-145)
[2024-04-23 20:25] LABS: Platelet Count 211 X10*3/uL (160-400); SLIDE REVIEW VERIFIED; White Blood Count 5.9 X10*3/uL (4.8-10.8)
[2024-04-23 20:33] LABS: Bacteria Urine 2+ (None Seen); RBC Urine >20 /HPF (0-2); Squamous Epithelial Cell Urine 0-2 /HPF (0-2); UACC Culture Trigger YES; WBC Urine >50 /HPF (0-5)
--- NOTE | 2024-04-23 21:48 | PC.NURSE ---
pt reports 7 bowel movements since yesterday (when sx started) with significant dark red blood in toilet bowl, only bleeds during BM. pain w/ BM, pain w/ urination. blood clots with BM each time
[2024-04-23 22:47] LABS: OBS Int Ctl Valid YES; OBS1 NEGATIVE (NEGATIVE)
--- NOTE | 2024-04-23 23:10 | PC.NURSE ---
took over care from ANDREW garcia, pt resting in bed.
[2024-04-23 23:17] VITALS: BP 138/89; PULSE 67; RESP 16; TEMP 36.4; O2SAT 95
[2024-04-23] MEDS: levoFLOXacin 500 MG TABLET PO (23:23)
--- NOTE | 2024-04-23 23:28 | PC.NURSE ---
medicated per mar, reviewed discharge instructions with pt, pt verbalized understanding. no sign of distress.
[2024-04-23 23:31] VITALS: BP 138/67; PULSE 67; RESP 16; TEMP 36.4; O2SAT 98
== END 2024-04-23 23:32 | disposition home or self-care (01) ==
PROVIDERS: Physician Assistant Medical; Emergency Provider Internal Medicine; PCP Student in an Organized Health Care Education/Training Program
DX: K64.8 Other hemorrhoids (principal); N39.0 Urinary tract infection, site not specified; B96.89 Other specified bacterial agents as the cause of diseases classified elsewhere; Z79.899 Other long term (current) drug therapy
CPT/HCPCS: 36415; 80053; 81001; 82272; 83690; 83735; 85025; 87086; 87088; 87186; 99284

== ENCOUNTER 2024-05-02 11:18 | Outpatient (AMB) | payer MEDICARE, SELFPAY ==
--- NOTE | 2024-05-02 12:02 | A.OFFVIS_ITS ---
Intake Visit Reasons: Greenlight laser Intake Note: Patient Is Present for Post Op Follow up Procedure Done: GreenLight laser Urology Med: Tamsulosin, Finasteride, Sildenafil Antibiotic Allergy: None Blood Thinner: Aspirin Last PVR: 0ml PVR: 0ML Last PSA: 10/2023 PSA: 3.86 Patient states that since the Surgery he has more frequency issues has to run to bathroom to urinate every half hour. Patient reports pain since surgery has been taking OTC tylenol but has been ineffective Telecommunication Engineer Required: No Accompanied by: Self / Same As Patient Allergies codeine [CODEINE] Allergy (Intermediate, Verified 05/02/24 12:05) CONFUSION; DIZZYNESS oxycodone [From PERCOCET] Allergy (Intermediate, Verified 05/02/24 12:05) confusion/dizziness Medication List - Last Reconciled 05/02/24 by iMguel Callejas MD amlodipine 5 mg PO DAILY aspirin (Adult Low Dose Aspirin) 81 mg PO DAILY chlorthalidone 25 mg PO QAM finasteride 5 mg PO DAILY 90 days hydralazine 10 mg PO BEDTIME hydrochlorothiazide 12.5 mg PO DAILY hydrocortisone acetate (Anusol-HC) 25 mg NM BID ketorolac 10 mg PO TID PRN 5 days latanoprost 0.005% 1 drp ophthalmic (eye) BEDTIME levofloxacin 500 mg PO DAILY 7 days lisinopril 40 mg PO DAILY metoprolol succinate ER 100 mg PO DAILY omeprazole 20 mg PO DAILY oxybutynin chloride ER 5 mg PO DAILY 30 days sildenafil (Viagra) 50 mg PO DAILY PRN sildenafil 100 mg PO DAILY PRN 30 days simvastatin 10 mg PO QPM tamsulosin 0.4 mg PO BEDTIME 90 days terbinafine HCl 250 mg PO DAILY 7 days verapamil ER 240 mg PO QAM HPI Comments Details: Gabino is a pleasant male. He is a patient of Dr. Forde. He seen for the following urologic conditions - lower urinary tract symptoms - elevated PSA - nephrolithiasis - erectile dysfunction GreenLight laser procedure completed 6 weeks ago Significant improvement in stream Currently with urgency and frequency which is improving but is still bothersome Will place on oxybutynin for 4 weeks Is reporting some pelvic pressure pain Six week follow-up Nephrolithiasis Imaging 03/26 renal ultrasound negative 09/24 - renal ultrasound 3 mm stone left, bilateral 1.5 cm cyst Bosniak 1 10/26 - renal ultrasound bilateral Bosniak 1 cysts Lower urinary tract symptoms Ongoing Current therapy finasteride and tamsulosin PSA 03/26 6.0, 10/25 3.9, 10/26 3.9 Prior prostate biopsy negative Bladder ultrasound - 11/25 - 30 cc residual, prostate 125 g Cystoscopy with large obstructing prostate Erectile dysfunction Sildenafil on demand On combination chlorthalidone, metoprolol, lisinopril PFSH Medical History CAD (coronary artery disease) Hyperlipidemia Elevated cholesterol GERD (gastroesophageal reflux disease) HTN (hypertension) Umbilical hernia Erectile dysfunction BPH (benign prostatic hyperplasia) Kidney stone Elevated PSA Surgical History Hx of cardiac catheterization Hx of hemorrhoidectomy H/O colonoscopy Hx of lithotripsy History of hernia repair History of prostate biopsy Family History Sister Breast cancer Social History Household Members Other:: sister living with him temporarily Are you a primary animal care taker to a significant other at home: No Do you presently have visiting nurse or other home services: No Alcohol intake: never Patient Tobacco Use Status: Former Tobacco user Review of Systems Const Denies chills and Denies fever(s) Card Reports no additional complaints and Denies syncope Resp Denies cough GI Denies abdominal pain and Denies heartburn Reports as per HPI and Denies change in libido Neuro Denies syncope Psych Denies change in libido Endo Denies change in libido Physical Exam Const General: cooperative, healthy appearing, comfortable and no acute distress Orientation/consciousness: patient oriented x3 HEENT Face and sinus: Yes normal facial exam Mouth: moist mucous membranes Neck Neck: Yes normal visual inspection, Yes full ROM and Yes trachea midline Chest Chest palpation & inspection: normal inspection of the chest Resp Effort & Inspection: normal respiratory effort, able to speak in complete sentences and no respiratory distress GI Inspection: Yes normal to inspection Back/Spine/Pelvis Cervical Spine: normal cervical lordosis Thoracic/Lumbar Spine: thoracic and lumbar spine normal to inspection Skin General skin exam: no rashes or lesions noted Neuro General: patient oriented x3, gait normal, tone normal and moves all extremities Extrem General: Yes normal to inspection and Yes capillary refill normal Office Procedures Post Void Residual Post Residual Void Post Void Residual (PVR): 0 [id number]-[id number] Void Residual by ultrasound Assessment & Plan Assessment & Plan (1) Urinary urgency: Code(s): R39.15 - Urgency of urination Category: Medical Plan Six week follow-up Orders: Orders AMB Post Void Residual by ultrasound Today R39.12 - Poor urinary stream Medications: New oxybutynin chloride ER 5 mg PO DAILY 30 days 30 tabs 1RF R39.15 - Urgency of urination Patient Instructions: Imaging studies, laboratory and physical exam results were discussed and reviewed in detail. No major barriers to patient understanding were identified. An opportunity to ask questions regarding the treatment plan was provided. All questions were answered. The patient expressed understanding and agreement with the above treatment plan. The patient is aware they should contact our office by phone for worsening of their current condition or the appearance of new urologic symptoms. Compliance is encouraged with any medications and followup testing that is ordered. It is a privilege to participate in the urologic care of your patient. If you have any questions or concerns regarding treatment for the above conditions, or other urologic issues, please do not hesitate to contact me. The office telephone contact is [phone]. This note is constructed using voice recognition software. While every effort has been made to ensure accuracy head correction officer errors may have been included. Yours sincerely, Dr Miguel Callejas MD, [facility] - Urology Providers of Expert, Compassionate Care for the Genitourinary System Coding Level of Care Code Est Pt Level 4 (88937) Diagnoses Urinary urgency R39.15 CPT Codes Post Residual Void - PVR CPT Code: 12920-Rahv Void Residual by ultrasound ([id number])
== END 2024-05-02 13:22 | disposition home or self-care (01) ==
LOC: HO.HUSH 11:18
PROVIDERS: PCP Student in an Organized Health Care Education/Training Program; Visit Provider Urology
DX: R39.15 Urgency of urination (principal)
CPT/HCPCS: 99024

== ENCOUNTER → 2024-05-02 11:18 | Outpatient (BNVA) | payer MEDICARE, SELFPAY | PROVIDERS: PCP Student in an Organized Health Care Education/Training Program; Visit Provider Urology | DX: R39.15 Urgency of urination (principal) | CPT/HCPCS: 51798; 99212 ==

== ENCOUNTER 2024-05-25 12:44 | Outpatient (REF) | payer MEDICARE, SELFPAY ==
[2024-05-25 14:50] LABS: Alanine Aminotransferase 20 U/L (0-40); Albumin Level 4.2 g/dL (3.5-5.0); Alkaline Phosphatase 74 U/L (39-117); Anion Gap 10 (12-20); Aspartate Amino Transferase 21 U/L (5-37); Bilirubin Direct 0.2 mg/dL (0.0-0.5); Bilirubin Total 0.7 mg/dL (0.0-1.0); Blood Urea Nitrogen 15 mg/dL (9-16); Calcium 9.3 mg/dL (8.4-10.2); Carbon Dioxide 32 mmol/L (22-29); Chloride 103 mmol/L (96-108); Cholesterol 193 mg/dL (<200); Estimated Glomerular Filt Rate > 60; Glucose Random 103 mg/dL (60-115); HDL Cholesterol 46 mg/dL (>40); LDL Cholesterol Calculated 125 mg/dL (<100); Potassium 3.3 mmol/L (3.3-5.1); Sodium 142 mmol/L (135-145); Total Protein 7.2 g/dL (6.5-8.0); Triglycerides 112 mg/dL (<150)
== END 2024-05-25 12:45 | disposition home or self-care (01) ==
LOC: HO.CHCLDS 12:44
PROVIDERS: Visit Provider Student in an Organized Health Care Education/Training Program
DX: I10 Essential (primary) hypertension (principal)
CPT/HCPCS: 36415; 80048; 80061; 80076

== ENCOUNTER 2024-06-16 12:11 | Outpatient (AMB) | payer MEDICARE, SELFPAY ==
--- NOTE | 2024-06-16 12:12 | MHC.OFFVIS ---
Intake Visit Reasons: 6 weeks PVR Intake Note: Patient is present for 6W/PVR Urology Medication:NONE Antibiotic Allergy:NONE Blood Thinner:NONE Last PVR: Todays PVR:0ML'S Composite Science Teacher Required: No Allergies codeine [CODEINE] Allergy (Intermediate, Verified 06/16/24 12:15) CONFUSION; DIZZYNESS oxycodone [From PERCOCET] Allergy (Intermediate, Verified 06/16/24 12:15) confusion/dizziness HPI Comments Details: Gabino is a pleasant male. He is a patient of Dr. Forde. 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 Trial daily low-dose ciprofloxacin and oxybutynin Three-month follow-up Nephrolithiasis Imaging 03/26 renal ultrasound negative 09/24 - renal ultrasound 3 mm stone left, bilateral 1.5 cm cyst Bosniak 1 10/26 - renal ultrasound bilateral Bosniak 1 cysts Lower urinary tract symptoms Ongoing Current therapy finasteride and tamsulosin PSA 03/26 6.0, 10/25 3.9, 10/26 3.9 Prior prostate biopsy negative Bladder ultrasound - 11/25 - 30 cc residual, prostate 125 g Cystoscopy with large obstructing prostate Greenlight laser - 03/28 - 135kW Erectile dysfunction Sildenafil on demand On combination chlorthalidone, metoprolol, lisinopril PFSH Medical History CAD (coronary artery disease) Hyperlipidemia Elevated cholesterol GERD (gastroesophageal reflux disease) HTN (hypertension) Umbilical hernia Erectile dysfunction BPH (benign prostatic hyperplasia) Kidney stone Elevated PSA Surgical History Hx of cardiac catheterization Hx of hemorrhoidectomy H/O colonoscopy Hx of lithotripsy History of hernia repair History of prostate biopsy Family History Sister Breast cancer Social History Household Members Other:: sister living with him temporarily Are you a primary child care education coordinator to a significant other at home: No Do you presently have visiting nurse or other home services: No Alcohol intake: never Patient Tobacco Use Status: Former Tobacco user Review of Systems Const Denies chills and Denies fever(s) Card Reports no additional complaints and Denies syncope Resp Denies cough GI Denies abdominal pain and Denies heartburn Reports as per HPI and Denies change in libido Neuro Denies syncope Psych Denies change in libido Endo Denies change in libido Physical Exam Const General: cooperative, healthy appearing, comfortable and no acute distress Orientation/consciousness: patient oriented x3 HEENT Face and sinus: Yes normal facial exam Mouth: moist mucous membranes Neck Neck: Yes normal visual inspection, Yes full ROM and Yes trachea midline Chest Chest palpation & inspection: normal inspection of the chest Resp Effort & Inspection: normal respiratory effort, able to speak in complete sentences and no respiratory distress GI Inspection: Yes normal to inspection Back/Spine/Pelvis Cervical Spine: normal cervical lordosis Thoracic/Lumbar Spine: thoracic and lumbar spine normal to inspection Skin General skin exam: no rashes or lesions noted Neuro General: patient oriented x3, gait normal, tone normal and moves all extremities Extrem General: Yes normal to inspection and Yes capillary refill normal Office Procedures Post Void Residual Post Residual Void Post Void Residual (PVR): 0 91906-Hkty Void Residual by ultrasound Results AMB Urinalysis, Automated UA Leukoctes 125 Matthew/uL Last Edit by JENNIFER Wu on 06/16/24 12:21 UA Nitrite Last Edit by JENNIFER Wu on 06/16/24 12:21 UA Urobilinogen 0.2 mg/dL Last Edit by JENNIFER Wu on 06/16/24 12:21 UA Protein 100 mg/dL Last Edit by JENNIFER Wu on 06/16/24 12:21 UA pH 6.5 Last Edit by JENNIFER Wu on 06/16/24 12:21 UA Blood 80 Jerome/uL Last Edit by JENNIFER Wu on 06/16/24 12:21 UA Specific [place] 1.015 Last Edit by JENNIFER Wu on 06/16/24 12:21 UA Ketone Negative Last Edit by JENNIFER Wu on 06/16/24 12:21 UA Bilirubin 0 mg/dL Last Edit by JENNIFER Wu on 06/16/24 12:21 UA Glucose 0 mg/dL Last Edit by JENNIFER uW on 06/16/24 12:21 Results Reviewed Results Reviewed: Laboratory Last Values Urine pH (Auto) 6.5 06/16/24 12:20 Specific [place] (Auto) 1.015 06/16/24 12:20 Urine Protein (Auto) 100 mg/dL 06/16/24 12:20 Glucose (UA)(Auto) 0 mg/dL 06/16/24 12:20 Urine Ketones (Auto) Negative 06/16/24 12:20 Urine Blood (Auto) 80 Jerome/uL 06/16/24 12:20 Urine Bilirubin (Auto) 0 mg/dL 06/16/24 12:20 Urine Urobilinogen (Auto) 0.2 mg/dL 06/16/24 12:20 Leukocyte Esterase (Auto) 125 Matthew/uL 06/16/24 12:20 Assessment & Plan Assessment & Plan (1) Urinary urgency: Code(s): R39.15 - Urgency of urination Category: Medical (2) BPH (benign prostatic hyperplasia): Code(s): N40.0 - Benign prostatic hyperplasia without lower urinary tract symptoms Category: Medical (3) Complicated urinary tract infection: Code(s): N39.0 - Urinary tract infection, site not specified Category: Medical Plan Three-month follow-up PVR Orders: Orders AMB Urinalysis Automated 06/16/24 Z13.9 - Encounter for screening, unspecified Medications: New ciprofloxacin HCl 250 mg PO DAILY 90 tabs 0RF 90 days N32.81 - Overactive bladder, N39.0 - Urinary tract infection, site not specified Discontinued levofloxacin Discontinued Reason: Patient Completed Course 500 mg PO DAILY 7 days 7 tabs 0RF Patient Instructions: Imaging studies, laboratory and physical exam results were discussed and reviewed in detail. No major barriers to patient understanding were identified. An opportunity to ask questions regarding the treatment plan was provided. All questions were answered. The patient expressed understanding and agreement with the above treatment plan. The patient is aware they should contact our office by phone for worsening of their current condition or the appearance of new urologic symptoms. Compliance is encouraged with any medications and followup testing that is ordered. It is a privilege to participate in the urologic care of your patient. If you have any questions or concerns regarding treatment for the above conditions, or other urologic issues, please do not hesitate to contact me. The office telephone contact is [phone]. This note is constructed using voice recognition software. While every effort has been made to ensure accuracy zinc miner blasting errors may have been included. Yours sincerely, Dr Miguel Callejas MD, [facility] - Urology Providers of Expert, Compassionate Care for the Genitourinary System Coding Level of Care Code Est Pt Level 4 (22431) Diagnoses Urinary urgency R39.15 BPH (benign prostatic hyperplasia) N40.0 Complicated urinary tract infection N39.0 CPT Codes Post Residual Void - PVR CPT Code: 00646-Eias Void Residual by ultrasound ([id number])
== END 2024-06-16 12:25 | disposition home or self-care (01) ==
LOC: HO.HUSH 12:11
PROVIDERS: PCP Student in an Organized Health Care Education/Training Program; Visit Provider Urology
DX: Z13.9 Encounter for screening, unspecified (principal)

== ENCOUNTER → 2024-06-16 12:11 | Outpatient (BNVA) | payer MEDICARE, SELFPAY | PROVIDERS: PCP Student in an Organized Health Care Education/Training Program; Visit Provider Urology | DX: N40.1 Benign prostatic hyperplasia with lower urinary tract symptoms (principal); R39.15 Urgency of urination; N39.0 Urinary tract infection, site not specified | CPT/HCPCS: 51798; 81003; 99212 ==

== ENCOUNTER 2024-08-30 10:30 | Outpatient (AMB) | payer MEDICARE, SELFPAY ==
--- NOTE | 2024-08-30 10:32 | A.OFFVIS_ITS ---
Vital Signs 08/30/24 10:36 Height 5 ft 9 in Weight 238 lb 1.588 oz BMI 35.2 BP 150/93 H Blood Pressure Location Lt brachial Position Sitting Pulse 66 Intake Visit Reasons: Pos Cologuard Intake Note: Gabino presents in the office as a new patient for a pos cologuard. CC: She states that he is not having blood at the moment. He states he is not having any GI concerns. Service Delivery Director Required: Yes Allergies codeine [CODEINE] Allergy (Intermediate, Verified 08/30/24 10:36) CONFUSION; DIZZYNESS oxycodone [From PERCOCET] Allergy (Intermediate, Verified 08/30/24 10:36) confusion/dizziness HPI Comments Details: 74 y.o M who is here for positive cologuard. Pt himself reports having rectal bleeding in april x 5-7 days on wiping and in toilet bowel. Stool itself was brown. No abd pain, N,V. No change in appetite or unintentional weight loss. Former smoker (remote), no etOH. 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 Sister: colon ca. Dx at age 73. Cologuard 05/2024 positive. Last colonoscopy 2014 with R sided hyperplastic polyps x 4. PFSH Medical History CAD (coronary artery disease) Hyperlipidemia Elevated cholesterol GERD (gastroesophageal reflux disease) HTN (hypertension) Umbilical hernia Erectile dysfunction BPH (benign prostatic hyperplasia) Kidney stone Elevated PSA Surgical History Hx of cardiac catheterization Hx of hemorrhoidectomy H/O colonoscopy Hx of lithotripsy History of hernia repair History of prostate biopsy Family History Sister Breast cancer Social History Household Members Other:: sister living with him temporarily Are you a primary child adolescent care to a significant other at home: No Do you presently have visiting nurse or other home services: No Alcohol intake: never Patient Tobacco Use Status: Former Tobacco user Review of Systems Const All systems reviewed & are unremarkable except as noted in HPI and below Physical Exam Vital Signs: Last Vital Signs Pulse 66 08/30/24 10:36 BP 150/93 H 08/30/24 10:36 BMI result Body Mass Index 35.2 Assessment & Plan Assessment & Plan (1) Positive colorectal cancer screening using Cologuard test: Code(s): R19.5 - Other fecal abnormalities Category: Medical (2) Anemia: Code(s): D64.9 - Anemia, unspecified Category: Medical (3) Rectal bleed: Code(s): K62.5 - Hemorrhage of anus and rectum Category: Medical Plan REviewed with the pt that anemia, rectal bleeding and hx of polyps warrant a follow up colonscopy. Cologuard done in May so colo ideally to be booked by November. Plan: - Check CBC and ferritin to r/o SARA - [place] to be booked - May need EGD if has iron deficiency - PEG Rxed and instructions reviewed with the help of student career development specialist + handout given Follow up after colo Orders: Orders Ferritin Today D64.9 - Anemia, unspecified Complete Blood Count no Diff Today D64.9 - Anemia, unspecified IRON PROFILE Today D64.9 - Anemia, unspecified Medications: New peg 3350-electrolytes 236-22.74-6.74 -5.86 gram (Golytely) as per split prep instructions, until fecal effluent is clear 240 mL PO Q10M 4,000 mL 0RF colonoscopy Coding Level of Care Code New Pt Level 4 (98604) Diagnoses Positive colorectal cancer screening using Cologuard test R19.5 Anemia D64.9 Rectal bleed K62.5
[2024-08-30 10:36] VITALS: BP 150/93; PULSE 66; BMI 35.2
--- OUTSIDE RECORDS SUMMARY | 2024-08-30 12:55 | XMS_ITS | Encounter Summary ---
Author Organization [employer] Address [address] [place] [address] [address] [address] Care Team Providers Care Can Conveyor Feeder Name Role Phone Ambreen Forde MD Primary Care Provider Reason for Visit * Reason Onset Date Comments Call Back Request 02/29/2024 Encounter Details Date Type Department Care Team ([facility] st Contact Info) Description 02/29/2024 Telephone [facility] MEDICINE [address] [place] [address] Ambreen Forde MD [address] [place] [address] Call Back Request Social History Tobacco Use Types Packs/Day Years Used Date Smoking Tobacco: Former Cigarettes Q uit: 1979 Smokeless Tobacco: Never Sex and Gender Information Value Date Recorded Sex Assigned at Male 05/04/2022 10:23 AM EDT Legal Sex Male 10:23 AM EDT Gender Identity Male 05/04/2022 10:23 AM EDT Sexual Orientation Straight 05/04/2022 10 :23 AM EDT documented as of this encounter Miscellaneous Notes * Telephone Encounter - Niko Ortiz - 02/29/2024 3:34 PM EDT Tc from Cece with [facility] calling in regards to requesting call back to discuss statin therapy. Please contact Cece at [phone]. documented in this encounter Plan of Treatment Not on file documented as of this encounter Visit Diagnoses Not on filedocumented in this encounter Care Teams Can Conveyor Feeder Relationship Specialty Start Date End Date Ambreen Forde MD [address] [place] [id number] PCP - General Family Medicine 05/12/13 documented as of this encounter
--- OUTSIDE RECORDS SUMMARY | 2024-08-30 12:55 | XMS_ITS | Encounter Summary ---
Author Organization [employer] Address [address] [place] [address] [address] [address] Care Team Providers Care President And Ceo Name Role Phone Ambreen Forde MD Primary Care Provider Reason for Visit * Reason Onset Date Comments Partial Refill 03/15/2023 Encounter Details Date Type Department Care Team ([facility] st Contact Info) Description 03/15/2023 Telephone [facility] [address] [place] [address] Ambreen Forde MD [address] [place] [address] Partial Refill Social History Tobacco Use Types Packs/Day Years Used Date Smoking Tobacco: Never Assessed Sex and Gender Information Value Date Recorded Sex Assigned at Male 05/04/2022 10:23 AM EDT Legal Sex Male 10:23 AM EDT Gender Identity Male 05/04/2022 10:23 AM EDT Sexual Orientation Straight 05/04/2022 10 :23 AM EDT documented as of this encounter Miscellaneous Notes * Telephone Encounter - Ambreen Forde MD - 03/16/2023 10:00 AM EDT Ok to send all the above meds.Please add to med list and task * Telephone Encounter - Magdalena Rajan LPN - 03/15/2023 4:01 PM EDT Please review message below. * Telephone Encounter - Debra Elirero - 03/15/2023 3:35 PM EDT Tc from pt and Igor requesting to have a partial refill of his medications metoprolol succinate XL (Toprol-XL) 100 MG 24 hr tablet, simvastatin (Zocor) 10 MG tablet, lisinopril 40 MG tablet, omeprazole (PriLOSEC) [address] shashi Rubin states that pt is currently out of medications in the [facility] and is requesting ifpossible to be sent over to [facility] in [place] Please contact igor at [phone] documented in this encounter Plan of Treatment Not on file documented as of this encounter Visit Diagnoses Diagnosis Benign hypertension Essential hypertension, benign Gastroesophageal reflux disease without esophagitis Esophageal reflux documented in this encounter Care Teams President And Ceo Relationship Specialty Start Date End Date Ambreen Forde MD [address] [place] [id number] PCP - General Family Medicine 05/12/13 documented as of this encounter
--- OUTSIDE RECORDS SUMMARY | 2024-08-30 12:55 | XMS_ITS | Encounter Summary ---
Author Organization [facility] Address [address] [place] [address] [address] [place] [address] Care Team Providers Care French Comber Name Role Phone Ambreen Forde MD Primary Care Provider [phone] Reason for Visit * Reason Comments Med Refill Encounter Details Date Type Department Care Team ([facility] st Contact Info) Description 04/13/2023 Refill [facility] MEDICINE [address] [place] [address] Ambreen Forde MD [address] [place], [place] [id number] Benign hypertension Social History Tobacco Use Types Packs/Day Years Used Date Smoking Tobacco: Never Assessed Sex and Gender Information Value Date Recorded Sex Assigned at Male 05/04/2022 10:23 AM EDT Legal Sex Male 10:23 AM EDT Gender Identity Male 05/04/2022 10:23 AM EDT Sexual Orientation Straight 05/04/2022 10 :23 AM EDT documented as of this encounter Plan of Treatment Not on file documented as of this encounter Visit Diagnoses Diagnosis Benign hypertension Essential hypertension, benign documented in this encounter Care Teams French Comber Relationship Specialty Start Date End Date Ambreen Forde MD [address] [place] [address] PCP - General Family Medicine 05/12/13 documented as of this encounter
--- OUTSIDE RECORDS SUMMARY | 2024-08-30 12:55 | XMS_ITS | Clinical Summary ---
Author Organization [employer] Address [address] [place] [address] [address] [place] [address] Care Team Providers Care Rail Washer Name Role Phone Ambreen Forde MD Primary Care Provider [phone] Allergies Active Allergy Reactions Criticality Noted Date Comments Acetaminophen 05/19/2013 Codeine 05/19/2013 Oxycodone 05/19/2013 Medications cyclobenzaprine (Flexeril) 5 MG tablet Take 5 mg by mouth in the morning. Take 5 mg by mouth in the morning. 2 Active latanoprost (Xalatan) 0.005 % ophthalmic solution PLACE ONE DROP IN EACH EYE AT BEDTIME 2 Active metoprolol succinate XL (Toprol-XL) 100 MG 24 hr tablet Take 100 mg by mouth in the morning. 2 Active omega-3 (Fish Oil) 1000 MG capsule Active finasteride (Proscar) 5 MG tablet Take 5 mg by mouth in the morning. 2 Active apixaban (Eliquis) 5 MG tabletIndications :Coronary artery disease, unspecified vessel or lesion type, unspecified whether angina present, unspecified whether [place] or transplanted heart Take 1 tablet (5 mg) by mouth 2 times daily. 180 tablet 3 3 Active Viagra 50 MG tabletIndications :Raised prostate specific antigen TAKE 1 TABLET 1 HOUR BEFORE SEXUAL RELATIONS ONCE DAILY NEEDED. 25 tablet 3 Active Aspirin Low Dose 81 MG chewable tablet CHEW ONE TABLET EVERY MORNING 90 tablet 1 4 Active omeprazole (PriLOSEC) [address] capsuleIndication s:Gastroesophagea l reflux disease without esophagitis TAKE ONE CAPSULE EVERY MORNING 30 TO 60 MINUTES BEFORE BREAKFAST 90 capsule 1 4 Active simvastatin (Zocor) 10 MG tablet TAKE ONE TABLET EVERY EVENING 90 tablet 1 4 Active lisinopril 40 MG tabletIndications :Benign hypertension TAKE ONE TABLET EVERY MORNING 30 tablet 2 5 Active hydroCHLOROthiazi de 12.5 MG tabletIndications :Benign hypertension TAKE ONE CAPSULE EVERY MORNING 30 tablet 2 5 Active Active Problems Problem Noted Date Diagnosed Date PVD (peripheral vascular disease) 07/27/2024 Coronary artery disease involving [place] coronar y artery 06/18/2023 Raised prostate specific antigen 05/21/2014 Benign hypertension 09/25/2013 Hypercholesterolemia 09/25/2013 Encounters Date Type Department Care Team Description 07/27/2024 11:30 AM EST Telemedicine [facility] [address] [place] [address] Ambreen Forde MD Benign hypertension (Primary Dx); Raised prostate specific antigen; Positive colorectal cancer screening using Cologuard test; PVD (peripheral vascular disease) ([facility]) 07/27/2024 Travel 07/14/2024 Refill [facility] [address] [place] [address] Arben Pickard MD Benign hypertension 07/14/2024 Refill [facility] [address] [place] [address] Ambreen Forde MD Benign hypertension 07/03/2024 Telephone [facility] [address] [place] [phone] Ambreen Forde MD 06/12/2024 Telephone [facility] [address] [place], [place] [phone] Ambreen Forde MD 06/12/2024 Orders Only [facility] [address] [place] [address] Ambreen Forde MD Positive colorectal cancer screening using Cologuard test (Primary Dx) from Last 3 Months Immunizations Name Administration Dates Next Due Influenza High-dose Quadriva lent Preservative Free 04/23/2020 Influenza Injectable Quadriv alant Preservative Free IIV4 MDCK 06/10/2021 Influenza injectable quadriv alent IIV4 with preservative 05/24/2018,06/07/2017,05/20/2016 Influenza injectable quadriv alent preservative free 04/04/2019 Influenza, High Dose Seasona l, Preservative Free 05/18/2024 Influenza, Split (incl. [place] f[place] surface antigen) 05/19/2013 Moderna Covid-19 Vaccine 12+ 10/04/2020,09/07/19 21 Pfizer Covid-19 Vaccine 12+ 05/18/2024 Pneumococcal Conjugate PCV 13 05/20/2016 Pneumococcal Polysaccharide PPSV23 06/07/2017 Tdap 06/07/2017 Zoster, Recombinant 11/26/2021,09/24/2021 Social History Tobacco Use Types Packs/Day Years Used Date Smoking Tobacco: Former Cigarettes Q uit: 1980 Smokeless Tobacco: Never Tobacco Cessation:Counseling Given: Not Answered Alcohol Use Standard Drinks/Week Comments Never 0 (1 standard drink = 0.6 oz pur e alcohol) Depression Answer Date Recorded Patient Health Questionnaire-9 Score 4 05/18/2024 Patient Health Questionnaire-9 Score 4 05/18/2024 Last PHQ-9: Questionnaire Data Not on file 1 07/18/2023 Housing Stability Answer Date Recorded What is your housing situation today? I have leeannelenita ford 05/18/[address] you li ve. Do you have problems with any of the following? None of the above 05/18/2024 Food Insecurity Answer Date Recorded Within the past 12 months, y ou worried that your food would run out before you got money to buy more: Never True 05/18/2024 Within the past 12 months,th e food you bought just didn't last and you didn't have enough money to get more: Never True Transportation Answer Date Recorded In the past 12 months, has l ack of transportation kept you from medical appts, meetings, work or from getting things needed for daily living? No 05/18/2024 Utilities Answer Date Recorded In the past 12 months, has t he electric, gas, oil or water company threatened to shut off services in your home? No 05/18/2024 Depression Answer Date Recorded Patient Health Questionnaire-2 Score 2 05/18/2024 Internet Access Answer Date Recorded Internet Access Q1 No 05/18/2024 Internet Access Q2 I do not want or need it 05/05 Sex and Gender Information Value Date Recorded Sex Assigned at Male 05/04/2022 10:23 AM EDT Legal Sex Male 10:23 AM EDT Gender Identity Male 05/04/2022 10:23 AM EDT Sexual Orientation Straight 05/04/2022 10 :23 AM EDT Last Filed Vital Signs Vital Sign Reading Time Taken Comments Blood Pressure 137/84 05/18/2024 10:02 AM EST Pulse 70 05/18/2024 10:02 AM EST Temperature 36.6 ??C (97.9 ??F) 05/18/2024 10:[address] Respiratory Rate 20 05/18/2024 10:02 AM EST Oxygen Saturation 95% 06/18/2023 1:57 PM EST Inhaled Oxygen Concentration - - Weight 106 kg (233 lb) 05/18/2024 10:02 AM EST Height 174 cm (5' 8.5 ) 05/18/2024 10:02 AM EST Body Mass Index 34.91 05/18/2024 10:02 AM EST Plan of Treatment Health Maintenance Due Date Last Done Comments CT Colonography 1951 FIT 1951 FOBT 1950 Sigmoidoscopy 1950 Hepatitis C Screening 1969 RSV Patients and Patients Aged 60 years or older (1 - Risk 60-74 years 1-dose series) 2011 Colonoscopy 09/13/2024 09/13/2014 Alcohol/Substance Use Screening 05/18/2025 05/18/2024 Depression Screening 05/18/2025 05/18/2024, 05/18/20 24 SDOH Screening 05/18/2025 05/18/2024 Tobacco Screening 05/18/2025 05/18/2024 Colorectal Cancer Screening 05/25/2027 FIT DNA/Cologuard 05/25/2027 05/25/2024 DTaP/Tdap/Td Vaccines (2 - Td or Tdap) 06/07/2027 06/07/2017 Lipid Panel 05/25/2029 05/25/2024 Pneumococcal Vaccine: 50+ Years Completed 06/07/2017, 05/20/2016 Zoster Vaccines Completed 11/26/2021, 09/24/2021 COVID-19 Vaccine Completed 05/18/2024, 08/2020, 09/06/2020 Influenza Vaccine Completed 05/18/2024, , 06/10/2021, Additional history exists HIB Vaccines Aged Out No longer eligi ble based on patient's age to complete this topic HPV Vaccines Aged Out No longer eligi ble based on patient's age to complete this topic Hepatitis A Vaccines Aged Out No long er eligible based on patient's age to complete this topic Hepatitis B Vaccines Aged Out No long er eligible based on patient's age to complete this topic IPV Vaccines Aged Out No longer eligi ble based on patient's age to complete this topic Meningococcal Vaccine Aged Out No areli eugene eligible based on patient's age to complete this topic RSV under 20 months Aged Out No longe r eligible based on patient's age to complete this topic Rotavirus Vaccines Aged Out No longer eligible based on patient's age to complete this topic Procedures Procedure Name Priority Date/Time Associated Diagnosis Comments LAB COLOGUARD?? COLON CANCER SCREEN Routine 05/25/2024 1:00 PM EST Screening for colon cancer LIPID PANEL, STANDARD Routine 05/25/2024 12:45 PM EST Benign hypertension HM COLONOSCOPY Routine 09/13/2014 from Last 3 Months or Most Recently Relevant to Health Maintenance Results * (ABNORMAL) Cologuard?? colon cancer screening (05/25/2024 1:00 PM EST) Cologuard Result Positive( A) Negative 06/10/2024 9:30 PM EST [facility] (CLIA #:[id number]) Comment: POSITIVE TEST RESULT. A positive Cologuard result should be followed with a colonoscopy or visual examination of the colon. The normal value (reference range) for this assay is negative. TEST DESCRIPTION: Composite algorithmic analysis of stool DNA-biomarkers with hemoglobin immunoassay. ?? Quantitative values of individual biomarkers are not reportable and are not associated with individual biomarker result reference ranges. Cologuard is intended for colorectal cancer screening of adults of either sex, 45 years or older, who are at average-risk for colorectal cancer (CRC). Cologuard has been approved for use by the U.S. FDA. The performance of Cologuard was established in a cross sectional study of average-risk adults aged 50-84. Cologuard performance in patients ages 45 to 49 years was estimated by sub-group analysis of near-age groups. Colonoscopies performed for a positive result may find as the most clinically significant lesion: colorectal cancer [4.0%], advanced adenoma (including sessile serrated polyps greater than or equal to 1cm diameter) [20%] or non- advanced adenoma [31%]; or no colorectal neoplasia [45%]. These estimates are derived from a prospective cross-sectional screening study of 10,000 individuals at average risk for colorectal cancer who were screened with both Cologuard and colonoscopy. (Ranjan Obrien et al, N Engl J Med 2014;370(14):8192-6221.) Cologuard may produce a false negative or false positive result (no colorectal cancer or precancerous polyp present at colonoscopy follow up). A negative Cologuard test result does not guarantee the absence of CRC or advanced adenoma (pre-cancer). The current Cologuard screening interval is every 3 years. ([place] [employer] and U.S. Multi-Society Task Force). Cologuard performance data in a 10,000 patient pivotal study using colonoscopy as the reference method can be accessed at the following location: www.[employer]/results. Additional description of the Cologuard test process, warnings and precautions can be found at www.[employer].com. Stool specimen (specimen) 05/25/2024 1:00 PM EST 05/27/2024 7:23 AM EST us Ambreen Forde MD LAB MOLECULAR DIAGNOSTICS ORDERA BLES Final Result [facility] (CLIA #:[id number]) [address] [place] [address], * (ABNORMAL) Lipid Panel, Standard (05/25/2024 12:45 PM EST) Triglycerides 112 <150 mg/dL [facility] Comment:Desirable Triglyceri de: less than 150 mg/dLBorderline High Triglyceride 150-199 mg/dLHigh Triglyceride: 200-499 mg/dLVery High Triglyceride: greater than or equal to 5OO mg/dL Cholesterol 193 <200 mg/dL [facility] Comment:Desirable Cholestero l: less than 200 mg/dLBorderline High Cholesterol: 200-239 mg/dLHigh Cholesterol: greater than 239 mg/dL LDL Cholesterol Calculated 125(H) <100 mg/dL [facility] Comment:Desirable LDL: less than 100 mg/dLNear Optimal/Above Optimal LDL: 110- 129 mg/dLBorderline High LDL: 130-159 mg/dLHigh LDL: 160-189 mg/dLVery High LDL: greater than or equal to 190 mg/dL HDL Cholesterol 46 >40 mg/dL [facility] Comment:Desirable HDL: great er than 40 mg/dL Note: This HDL assay may give artificially low results in patients with liver disease. Blood Venous blood specimen / Unknown 05/25/2024 12:45 PM EST 05/25/2024 2:07 PM EST Ambreen Forde MD LAB BLOOD ORDERABLES Final Resul t [facility] [address] [place] [address] [phone] * Colonoscopy (09/13/2014) Colonoscopy Normal Normal Historical Provider HEALTH MAINTENANCE Final Result from Last 3 Months or Most Recently Relevant to Health Maintenance Insurance [facility] [employer] [employer] HMO [place] [id number] [place] [id number] [place] [id number] Care Teams Rail Washer Relationship Specialty Start Date End Date Ambreen Forde MD [address] [place] [address] PCP - General Family Medicine 05/12/13
--- OUTSIDE RECORDS SUMMARY | 2024-08-30 12:55 | XMS_ITS | Encounter Summary ---
Author Organization [facility] Address [address] [place] [address] [address] Care Team Providers Care Cone Winder Name Role Phone Ambreen Forde MD Primary Care Provider [phone] Reason for Visit * Reason Comments Med Refill Encounter Details Date Type Department Care Team ([facility] st Contact Info) Description 03/30/2023 Refill [facility] [address] [place] [address] Ambreen Forde MD [address] [place], [place] [phone] Benign hypertension Social History Tobacco Use Types [...] benign documented in this encounter Care Teams Cone Winder Relationship Specialty Start Date End Date Ambreen Forde MD [address] [place] [address] PCP - General Family Medicine 05/12/13 documented as of this encounter
--- OUTSIDE RECORDS SUMMARY | 2024-08-30 12:55 | XMS_ITS | Encounter Summary ---
Author Organization [facility] [facility] Address [address] [place] [address] [address] [address] Care Team Providers Care Brick Molder Hand Name Role Phone Ambreen Forde MD Primary Care Provider [phone] Encounter Details Date Type Department Care Team (Latest Contact Info) Description 05/04/2019 Abstract [facility] CONVERSIONS Dental, Provider, DDS Social History Tobacco Use Types Packs/Day Years [...] on filedocumented in this encounter Care Teams Brick Molder Hand Relationship Specialty Start Date End Date Ambreen Forde MD [address] [place] [id number] PCP - General Family Medicine 05/12/13 documented as of this encounter
--- OUTSIDE RECORDS SUMMARY | 2024-08-30 12:55 | XMS_ITS | Encounter Summary ---
Author Organization [facility] Address [address] [place] [address] [address], [place] [address] Care Team Providers Care Fish Header Name Role Phone Ambreen Forde MD Primary Care Provider [phone] Encounter Details Date Type Department Care Team (Latest Contact Info) Description 10/31/2018 Abstract [facility] CONVERSIONS Dental, Provider, DDS Social History [...] on filedocumented in this encounter Care Teams Fish Header Relationship Specialty Start Date End Date Ambreen Forde MD [address] [place] [address] PCP - General Family Medicine 05/12/13 documented as of this encounter
== END 2024-08-30 11:05 | disposition home or self-care (01) ==
PROVIDERS: PCP Student in an Organized Health Care Education/Training Program; Visit Provider Internal Medicine
DX: R19.5 Other fecal abnormalities (principal); D64.9 Anemia, unspecified; K62.5 Hemorrhage of anus and rectum
CPT/HCPCS: 99204

== ENCOUNTER → 2024-08-30 10:30 | Outpatient (BNVA) | payer MEDICARE, SELFPAY | PROVIDERS: PCP Student in an Organized Health Care Education/Training Program; Visit Provider Internal Medicine | DX: R19.5 Other fecal abnormalities (principal); K62.5 Hemorrhage of anus and rectum; D64.9 Anemia, unspecified; Z80.0 Family history of malignant neoplasm of digestive organs | CPT/HCPCS: 99202 ==

== ENCOUNTER 2024-10-06 15:26 | Outpatient (AMB) | payer MEDICARE, MEDICAID, SELFPAY ==
--- NOTE | 2024-10-06 15:30 | A.OFFVIS_ITS ---
Intake Visit Reasons: 3M/PVR Intake Note: Patient is present for 6W/PVR Urology Medication:Finasteride, Oxybutynin, Sildenafil, Tamsulosin Antibiotic Allergy:NONE Blood Thinner:Aspirin PVR:10ml Slot Machine Mechanic Required: No Allergies codeine [CODEINE] Allergy (Intermediate, Verified 08/30/24 10:36) CONFUSION; DIZZYNESS oxycodone [From PERCOCET] Allergy (Intermediate, Verified 08/30/24 10:36) confusion/dizziness HPI Comments Details: Gabino is a pleasant male. He is a patient of Dr. Forde. He seen for the following urologic conditions - lower urinary tract symptoms - elevated PSA - nephrolithiasis - erectile dysfunction Three month follow-up - completed low-dose oxybutynin ciprofloxacin UA today no evidence of infection Postprocedure had infection with Proteus resistant to Bactrim Three-month follow-up Nephrolithiasis Imaging 03/26 renal ultrasound negative 09/24 - renal ultrasound 3 mm stone left, bilateral 1.5 cm cyst Bosniak 1 10/26 - renal ultrasound bilateral Bosniak 1 cysts Lower urinary tract symptoms Ongoing Current therapy finasteride and tamsulosin PSA 03/26 6.0, 10/25 3.9, 10/26 3.9 Prior prostate biopsy negative Bladder ultrasound - 11/25 - 30 cc residual, prostate 125 g Cystoscopy with large obstructing prostate Greenlight laser - 03/28 - 135kW Erectile dysfunction Sildenafil on demand On combination chlorthalidone, metoprolol, lisinopril PFSH Medical History CAD (coronary artery disease) Hyperlipidemia Elevated cholesterol GERD (gastroesophageal reflux disease) HTN (hypertension) Umbilical hernia Erectile dysfunction BPH (benign prostatic hyperplasia) Kidney stone Elevated PSA Surgical History Hx of cardiac catheterization Hx of hemorrhoidectomy H/O colonoscopy Hx of lithotripsy History of hernia repair History of prostate biopsy Family History Sister Breast cancer Social History Household Members Other:: sister living with him temporarily Are you a primary care center manager to a significant other at home: No Do you presently have visiting nurse or other home services: No Alcohol intake: never Patient Tobacco Use Status: Former Tobacco user Office Procedures Post Void Residual Post Residual Void Post Void Residual (PVR): 10 [id number] Void Residual by ultrasound Results AMB Urinalysis, Automated UA Leukoctes 0 Matthew/uL Last Edit by JENNIFER Wu on 10/06/24 16:35 UA Nitrite Negative Last Edit by JENNIFER uW on 10/06/24 16:35 UA Urobilinogen 1 mg/dL Last Edit by Elida Thibodeaux CCM on 10/06/24 16:35 UA Protein 30 mg/dL Last Edit by Elida Thibodeaux CCM on 10/06/24 16:35 UA pH 7.0 Last Edit by Elida Thibodeaux CCM on 10/06/24 16:35 UA Blood 0 Jerome/uL Last Edit by Elida Thibodeaux CCM on 10/06/24 16:35 UA Specific [place] 1.010 Last Edit by JENNIFER Wu on 10/06/24 16: 35 UA Ketone Negative Last Edit by JENNIFER Wu on 10/06/24 16:35 UA Bilirubin 0 mg/dL Last Edit by JENNIFER Wu on 10/06/24 16:35 UA Glucose 0 mg/dL Last Edit by JENNIFER Wu on 10/06/24 16:35 Results Reviewed Results Reviewed: Laboratory Last Values Urine pH (Auto) 7.0 10/06/24 16:34 Specific [place] (Auto) 1.010 10/06/24 16:34 Urine Protein (Auto) 30 mg/dL 10/06/24 16:34 Glucose (UA)(Auto) 0 mg/dL 10/06/24 16:34 Urine Ketones (Auto) Negative 10/06/24 16:34 Urine Blood (Auto) 0 Jerome/uL 10/06/24 16:34 Urine Nitrite (Auto) Negative 10/06/24 16:34 Urine Bilirubin (Auto) 0 mg/dL 10/06/24 16:34 Urine Urobilinogen (Auto) 1 mg/dL 10/06/24 16:34 Leukocyte Esterase (Auto) 0 Matthew/uL 10/06/24 16:34 Assessment & Plan Assessment & Plan Orders: Orders AMB Urinalysis Automated Today Z13.9 - Encounter for screening, unspecified Coding CPT Codes Post Residual Void - PVR CPT Code: [id number] Void Residual by ultrasound ([id number])
--- OUTSIDE RECORDS SUMMARY | 2024-10-06 16:38 | XMS_ITS | Encounter Summary ---
Author Organization [employer] [facility] Address [address] [place] [address] [address] [address] Care Team Providers Care Estate Manager Name Role Phone Ambreen Forde MD Primary Care Provider [phone] Reason for Visit * Reason Comments Med Refill Encounter Details Date Type Department Care Team ([facility] st Contact Info) Description 03/30/2023 Refill [facility] [address] [place] [address] Ambreen Forde MD [address] [place], [place] [phone] Benign hypertension Social History Tobacco Use Types [...] benign documented in this encounter Care Teams Estate Manager Relationship Specialty Start Date End Date Ambreen Forde MD [address] [place] [address] PCP - General Family Medicine 05/12/13 documented as of this encounter
--- OUTSIDE RECORDS SUMMARY | 2024-10-06 16:38 | XMS_ITS | Encounter Summary ---
Author Organization [employer] Address [address] [place] [address] [address] [address] Care Team Providers Care Research Physician Name Role Phone Ambreen Forde MD Primary Care Provider [phone] Reason for Visit * Reason Onset Date Comments Partial Refill 03/15/2023 Encounter Details Date Type Department Care Team ([facility] st Contact Info) Description 03/15/2023 Telephone [facility] [address] [place] [address] Ambreen Forde MD [address] [place] [address] Partial Refill Social History Tobacco Use Types [...] is currently out of medications in the [facility] and is requesting ifpossible to be sent over to [facility] in [place], [place] Please contact igor at [phone] documented in this encounter Plan of Treatment Not on file documented as of this encounter Visit Diagnoses Diagnosis Benign hypertension Essential hypertension, benign Gastroesophageal reflux disease without esophagitis Esophageal reflux documented in this encounter Care Teams Research Physician Relationship Specialty Start Date End Date Ambreen Forde MD [address] [place] [id number] PCP - General Family Medicine 05/12/13 documented as of this encounter
--- OUTSIDE RECORDS SUMMARY | 2024-10-06 16:38 | XMS_ITS | Encounter Summary ---
Author Organization [facility] [facility] Address [address] [place] [address] [address] [address] Care Team Providers Care Subway Operator Name Role Phone Ambreen Forde MD Primary Care Provider [phone] Reason for Visit * Reason Comments Med Refill Encounter Details Date Type Department Care Team ([facility] st Contact Info) Description 04/13/2023 Refill [facility] [address] [place] [address] Ambreen Forde MD [address] [place], [place] [phone] Benign hypertension Social History Tobacco Use Types [...] benign documented in this encounter Care Teams Subway Operator Relationship Specialty Start Date End Date Ambreen Forde MD [address] [place] [address] PCP - General Family Medicine 05/12/13 documented as of this encounter
--- OUTSIDE RECORDS SUMMARY | 2024-10-06 16:39 | XMS_ITS | Clinical Summary ---
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 06/18/2023 Raised prostate specific antigen 05/21/2014 Benign hypertension 09/25/2013 Hypercholesterolemia 09/25/2013 Encounters Date Type Department Care Team Description 07/27/2024 11:30 AM EST Telemedicine [facility] MED & PEDS [address] [place] [address] Ambreen Forde MD Benign hypertension (Primary Dx); Raised prostate specific antigen; Positive colorectal cancer screening using Cologuard test; PVD (peripheral vascular disease) ([facility]) 07/27/2024 Travel 07/14/2024 Refill [facility]ED[facility] [address] [place] [address] Arben Pickard MD Benign hypertension 07/14/2024 Refill [facility] MED & PEDS [address] [place] [address] Ambreen Forde MD Benign hypertension from Last 3 Months Immunizations Name Administration [...] is your housing situation today? I have leeann ford 05/18/[address] you [...] Positive( A) Negative 06/10/2024 9:30 PM EST [facility] (CLIA #:[id number]) Comment: POSITIVE TEST RESULT. A positive Cologuard [...] screened with both Cologuard and colonoscopy. (Ranjan Mcgovern al, N Engl J Med 2014;370(14):9241-9456.) Cologuard may produce a false negative or false positive result (no colorectal cancer or precancerous polyp present at colonoscopy follow up). A negative Cologuard test result does not guarantee the absence of CRC or advanced adenoma (pre-cancer). The current Cologuard screening interval is every 3 years. ([place] [employer] and U.S. Multi-Society Task Force). Cologuard performance data in a 10,000 patient pivotal study using colonoscopy as the reference method can be accessed at the following location: www.Social Tables/results. Additional description of the Cologuard test process, warnings and precautions can be found at www.[employer]. Stool specimen (specimen) 05/25/2024 1:00 PM EST 05/27/2024 7:23 AM EST us Ambreen Forde MD LAB MOLECULAR DIAGNOSTICS ORDERA BLES Final Result [facility] (CLIA #:[id number]) [address] [place] [address], * (ABNORMAL) Lipid Panel, Standard (05/25/2024 12:45 PM EST) Triglycerides 112 <150 mg/dL [facility] Comment:Desirable Triglyceri de: less than 150 mg/dLBorderline High Triglyceride 150-199 mg/dLHigh Triglyceride: 200-499 mg/dLVery High Triglyceride: greater than or equal to 5OO mg/dL Cholesterol 193 <200 mg/dL [facility] Comment:Desirable Cholestero l: less than 200 mg/dLBorderline High Cholesterol: 200-239 mg/dLHigh Cholesterol: greater than 239 mg/dL LDL Cholesterol Calculated 125(H) <100 mg/dL [facility] Comment:Desirable LDL: less than 100 mg/dLNear Optimal/Above Optimal LDL: 110- 129 mg/dLBorderline High LDL: 130-159 mg/dLHigh LDL: 160-189 mg/dLVery High LDL: greater than or equal to 190 mg/dL HDL Cholesterol 46 >40 mg/dL [facility] Comment:Desirable HDL: great er than 40 mg/dL Note: This HDL assay may give artificially low results in patients with liver disease. Blood Venous blood specimen / Unknown 05/25/2024 12:45 PM EST 05/25/2024 2:07 PM EST us Ambreen Forde MD LAB BLOOD ORDERABLES Final Resul t [facility] [address] [place] [address] [phone] * Colonoscopy (09/13/2014) Colonoscopy Normal Normal Historical Provider HEALTH MAINTENANCE Final Result from Last 3 Months or Most Recently Relevant to Health Maintenance Insurance [employer] HMO DEL[employer] QU[place]ONES [id number] [employer] [id number] Care Teams Chef & Owner Relationship Specialty Start Date End Date Ambreen Forde MD [address] [place] [id number] PCP - General Family Medicine 05/12/13
--- OUTSIDE RECORDS SUMMARY | 2024-10-06 16:39 | XMS_ITS | Encounter Summary ---
Author Organization Employee Benefit Plans [facility] Address [address] [place] [address] [address] [address] Care Team Providers Care Edge Trimmer Name Role Phone Ambreen Forde MD Primary Care Provider [phone] Encounter Details Date Type Department Care Team (Latest Contact Info) Description 10/31/2018 Abstract [facility] CONVERSIONS Dental, Provider, DDS Social History [...] on filedocumented in this encounter Care Teams Edge Trimmer Relationship Specialty Start Date End Date Ambreen Forde MD [address] [place] [address] PCP - General Family Medicine 05/12/13 documented as of this encounter
--- OUTSIDE RECORDS SUMMARY | 2024-10-06 16:39 | XMS_ITS | Encounter Summary ---
Author Organization [facility] Address [address] [place] [address] [address] [address] Care Team Providers Care Defensive Driving Instructor Name Role Phone Ambreen Forde MD Primary Care Provider Encounter Details Date Type Department Care Team (Latest Contact Info) Description 05/04/2019 Abstract [facility] CONVERSIONS Dental, Provider, DDS Social History Tobacco [...] on filedocumented in this encounter Care Teams Defensive Driving Instructor Relationship Specialty Start Date End Date Ambreen Forde MD [address] [place] [id number] PCP - General Family Medicine 05/12/13 documented as of this encounter
--- OUTSIDE RECORDS SUMMARY | 2024-10-06 16:39 | XMS_ITS | Encounter Summary ---
Author Organization [employer] Address [address] [place] [address] [address] [place] [address] Care Team Providers Care Filenet Developer Name Role Phone Ambreen Forde MD Primary Care Provider [phone] Reason for Visit * Reason Onset Date Comments Call Back Request 02/29/2024 Encounter Details Date Type Department Care Team ([facility] st Contact Info) Description 02/29/2024 Telephone [facility] MEDICINE [address] [place] [address] Ambreen Forde MD [address] [place] [address] Call Back Request Social History Tobacco Use [...] 3:34 PM EDT Tc from Cece with [facility] calling in regards to requesting call back to discuss statin therapy. Please contact Cece at [phone]. documented in this encounter Plan of Treatment Not on file documented as of this encounter Visit Diagnoses Not on filedocumented in this encounter Care Teams Filenet Developer Relationship Specialty Start Date End Date Ambreen Forde MD [address] [place] [address] PCP - General Family Medicine 05/12/13 documented as of this encounter
== END 2024-10-06 16:30 ==
PROVIDERS: PCP Student in an Organized Health Care Education/Training Program; Visit Provider Urology
DX: Z13.9 Encounter for screening, unspecified (principal)

== ENCOUNTER → 2024-10-06 15:26 | Outpatient (BNVA) | payer MEDICARE, SELFPAY | PROVIDERS: PCP Student in an Organized Health Care Education/Training Program; Visit Provider Urology | DX: N20.0 Calculus of kidney (principal); N40.0 Benign prostatic hyperplasia without lower urinary tract symptoms; N52.9 Male erectile dysfunction, unspecified | CPT/HCPCS: 51798; 81003; 99212 ==

== ENCOUNTER 2024-11-06 16:34 | Outpatient (REF) | payer MEDICARE, MEDICAID, SELFPAY ==
--- NOTE | ~2024-11-06 | XR_ITS ---
EXAMINATION: XR KNEE, RIGHT CLINICAL INFORMATION: 2-3 weeks of right knee pain and swelling COMPARISON: None available. TECHNIQUE: Three views of the right knee. FINDINGS: The tricompartment joint space is preserved. No visible fracture, dislocation or subluxation seen. There is a moderate size suprapatellar enthesophyte. No joint effusion noted. The soft tissues are normal. XR/XR knee RT 3V IMPRESSION: Moderate size anterior superior patellar enthesophyte. Electronically signed by: Benedicto Wen MD 11/07/2024 01:48 PM EDT
--- OUTSIDE RECORDS SUMMARY | 2024-11-06 17:46 | XMS_ITS | Encounter Summary ---
Author Organization [employer] Address [address] [place] [address] [address] [address] Care Team Providers Care Panel Assembler Name Role Phone Ambreen Forde MD Primary Care Provider [phone] Reason for Visit * Reason Onset Date Comments Partial Refill 03/15/2023 Encounter Details Date Type Department Care Team ([facility] st Contact Info) Description 03/15/2023 Telephone [facility] MED [facility] PEDS [address] [place] [address] Ambreen Forde MD [address] [place] [address] Partial Refill Social History Tobacco Use Types [...] is currently out of medications in the [facility] and is requesting ifpossible to be sent over to [facility] in [place], [place] Please contact igor at [phone] documented in this encounter Plan of Treatment Not on file documented as of this encounter Visit Diagnoses Diagnosis Benign hypertension Essential hypertension, benign Gastroesophageal reflux disease without esophagitis Esophageal reflux documented in this encounter Care Teams Panel Assembler Relationship Specialty Start Date End Date Ambreen Forde MD [address] [place] [address] PCP - General Family Medicine 05/12/13 documented as of this encounter
--- OUTSIDE RECORDS SUMMARY | 2024-11-06 17:46 | XMS_ITS | Encounter Summary ---
Author Organization [employer] Address [address] [place] [address] [address] [address] Care Team Providers Care Concrete Puddler Name Role Phone Ambreen Forde MD Primary Care Provider [phone] Reason for Visit * Reason Comments Med Refill Encounter Details Date Type Department Care Team ([facility] st Contact Info) Description 03/30/2023 Refill [facility] MEDICINE [address] [place] [address] Ambreen Forde MD [address] [place] [address] Benign hypertension Social History Tobacco Use Types [...] benign documented in this encounter Care Teams Concrete Puddler Relationship Specialty Start Date End Date Ambreen Forde MD [address] [place] [address] PCP - General Family Medicine 05/12/13 documented as of this encounter
--- OUTSIDE RECORDS SUMMARY | 2024-11-06 17:46 | XMS_ITS | Encounter Summary ---
Author Organization [employer] Address [address] [facility] [address] [address] Care Team Providers Care Certified Nurse Aide Name Role Phone Ambreen Forde MD Primary Care Provider [phone] Reason for Referral * Consultation (Routine) - Authorized Specialty Diagnoses / Procedures Referred By Reagan fan Referred To Contact Orthopaedic Surgery Diagnoses Pain and swelling of right knee Jordan Medina MD [address] [place] [address] Phone: tel: fax: [facility] Orthopedics [address] [place] [address] Phone: tel: Referral ID Status Reason Start Date Expiration Date Visits Requested Visits Authorized [id number] Authorized Specialty Services Required 11/04/2024 11/04/2025 1 1 Reason for Visit * Reason Comments Knee Pain Encounter Details Date Type Department Care Team (Late st Contact Info) Description 11/04/2024 12:40 PM EDT Office Visit [facility] [address] [place] [address] Jordan Medina MD [address] [place] [address] Pain and swelling of right knee (Primary Dx) Social History Tobacco Use Types Packs/Day Years Used Date Smoking Tobacco: Former Cigarettes Q uit: 1980 Smokeless Tobacco: Never Alcohol Use Standard Drinks/Week Comments Never 0 [...] AM EDT documented as of this encounter Last Filed Vital Signs Vital Sign Reading Time Taken Comments Blood Pressure 150/84 11/04/2024 11:31 AM EDT Pulse 74 11/04/2024 11:31 AM EDT Temperature 36.9 ??C (98.4 ??F) 11/04/2024 11:31 AM E DT Respiratory Rate 17 11/04/2024 11:31 AM EDT Oxygen Saturation 95% 11/04/2024 11:31 AM EDT Inhaled Oxygen Concentration - - Weight 108 kg (237 lb) 11/04/2024 11:31 AM EDT Height - - Body Mass Index 35.51 05/18/2024 10:02 AM EST documented in this encounter Progress Notes * Jordan Medina MD - 11/04/2024 12:40 PM EDT Subjective Patient ID: Gabino Forte is a 74 y.o. male who presents for Knee Pain. Patient comes for a sick visit. The patient is complaining of right knee pain and swelling for about 3 weeks. The patient tells me the pain started after he was kneeling on the floor for a long time installing some marina. He had exacerbation of the pain most recently when he felt a click on the right knee going up stairs. He does not have any history of direct trauma to the right knee. The patient has exacerbation of the pain walking and with active and passive range of motion of the right knee. He has slight right knee swelling. The patient comes wearing compression right knee sleeve thathe finds beneficial. He has personal history of allergy to acetaminophen. He is treated with baby as pirin. He used to be treated with Eliquis but this was discontinued back in 2022. Review of Systems Constitutional: Negative for chills, fatigue and fever. HENT: Negative for sore throat. Respiratory: Negative for cough, chest tightness and shortness of breath. Cardiovascular: Negative for chest pain, palpitations and leg swelling. Gastrointestinal: Negative for abdominal pain and blood in stool. Musculoskeletal: See HPI Visit Vitals BP (!) 150/84 (BP Location: Left arm, Patient Position: Sitting, BP Cuff Size: Adult) Pulse 74 Temp 98.4 ??F (36.9 ??C) (Oral) Resp 17 Wt 237 lb (108 kg) SpO2 95% BMI 35.51 kg/m?? Smoking Status Former BSA 2.28 m?? Objective Physical Exam Constitutional: General: He is not in acute distress. Appearance: He is not toxic-appearing. Cardiovascular: Rate and Rhythm: Normal rate and regular rhythm. Pulmonary: Effort: Pulmonary effort is normal. No respiratory distress. Musculoskeletal: Right knee: Swelling present. Decreased range of motion. Tenderness present. Assessment/Plan Diagnoses and all orders for this visit: Pain and swelling of right knee Comments: Possible right knee sprain or internal knee derangement. I recommended evaluation with x-ray of theright knee, course of Celebrex for pain, I recommended to continue using compression sleeve, I recommended to rest and put ice on the affected knee on and off. Referral to orthopedics. Orders: - celecoxib (CeleBREX) 200 MG capsule; Take 1 capsule (200 mg) by mouth if needed in the morning and at bedtime for mild pain for up to 10 days. - XR Knee 3 Views Right; Future - Referral to Orthopaedic Surgery; Future documented in this encounter Plan of Treatment Scheduled Orders Name Type Priority Associated Diagnoses Orde r Schedule XR Knee 3 Views Right Imaging Routine Pain and swelling of right knee Expected: 11/04/2024, Expires: 11/04/2025 Scheduled Referrals Name Type Priority Associated Diagnoses Order Schedule Referral to Orthopaedic Surgery Outpatient Referral Routine Pain and swelling of right knee Expected: 11/04/2024 (Approximate), Expires: 11/04/2025 documented as of this encounter Visit Diagnoses Diagnosis Pain and swelling of right knee- Primary documented in this encounter Additional Health Concerns Assessment Noted Time PHQ-9 Depression Total Score: 4 05/18/20 24 10:04 AM EST documented as of this encounter Care Teams Certified Nurse Aide Relationship Specialty Start Date End Date Ambreen Forde MD [address] [place] [address] PCP - General Family Medicine 05/12/13 documented as of this encounter
--- OUTSIDE RECORDS SUMMARY | 2024-11-06 17:46 | XMS_ITS | Encounter Summary ---
Author Organization [employer] Address [address] [place] [address] [address] [place] [address] Care Team Providers Care Equine Intern Name Role Phone Ambreen Forde MD Primary Care Provider [phone] Reason for Visit * Reason Comments Med Refill Encounter Details Date Type Department Care Team ([facility] st Contact Info) Description 04/13/2023 Refill [facility] MEDICINE [address] [place] [address] Ambreen Forde MD [address] [place] [address] Benign hypertension Social History Tobacco Use Types [...] benign documented in this encounter Care Teams Equine Intern Relationship Specialty Start Date End Date Ambreen Forde MD [address] [place] [address] PCP - General Family Medicine 05/12/13 documented as of this encounter
--- OUTSIDE RECORDS SUMMARY | 2024-11-06 17:46 | XMS_ITS | Encounter Summary ---
Author Organization [employer] Address [address] [place] [address] [address] [place] [address] Care Team Providers Care Mixer Operator Tablets Name Role Phone Ambreen Forde MD Primary Care Provider [phone] Encounter Details Date Type Department Care Team (Latest Contact Info) Description 10/31/2018 Abstract [facility] CONVERSIONS Dental, Provider, DDS Social History [...] on filedocumented in this encounter Care Teams Mixer Operator Tablets Relationship Specialty Start Date End Date Ambreen Forde MD [address] [place] [address] PCP - General Family Medicine 05/12/13 documented as of this encounter
--- OUTSIDE RECORDS SUMMARY | 2024-11-06 17:46 | XMS_ITS | Encounter Summary ---
Author Organization [employer] Address [address] [place] [address] [address] [place] [address] Care Team Providers Care Manager Clinic Name Role Phone Ambreen Forde MD Primary Care Provider [phone] Encounter Details Date Type Department Care Team (Latest Contact Info) Description 05/04/2019 Abstract [facility] CONVERSIONS Dental, Provider, DDS Social History [...] on filedocumented in this encounter Care Teams Manager Clinic Relationship Specialty Start Date End Date Ambreen Forde MD [address] [place] [address] PCP - General Family Medicine 05/12/13 documented as of this encounter
--- OUTSIDE RECORDS SUMMARY | 2024-11-06 17:46 | XMS_ITS | Encounter Summary ---
Author Organization [employer] Address [address] [place] [address] [address] [address] Care Team Providers Care Per Diem Clerk Name Role Phone Ambreen Forde MD Primary Care Provider [phone] Reason for Visit * Reason Onset Date Comments Call Back Request 02/29/2024 Encounter Details Date Type Department Care Team ([facility] st Contact Info) Description 02/29/2024 Telephone [facility] MEDICINE [address] [place] [address] Ambreen Forde MD [address] [place] [address] Call Back Request Social History Tobacco Use Types Packs/Day Years Used Date Smoking Tobacco: Former Cigarettes Q uit: 1980 Smokeless Tobacco: Never Sex and Gender Information Value Date Recorded Sex Assigned at Male 05/04/2022 10:23 AM EDT Legal Sex Male 10:23 AM EDT Gender Identity Male 05/04/2022 10:23 AM EDT Sexual Orientation Straight 05/04/2022 10 :23 AM EDT documented as of this encounter Miscellaneous Notes * Telephone Encounter - Niko Ortiz - 02/29/2024 3:34 PM EDT Tc from Cece with [facility] calling in regards to requesting call back to discuss statin therapy. Please contact Cece at [phone]. documented in this encounter Plan of Treatment Not on file documented as of this encounter Visit Diagnoses Not on filedocumented in this encounter Care Teams Per Diem Clerk Relationship Specialty Start Date End Date Ambreen Forde MD [address] [place] [address] PCP - General Family Medicine 05/12/13 documented as of this encounter
--- OUTSIDE RECORDS SUMMARY | 2024-11-06 17:46 | XMS_ITS | Encounter Summary ---
Author Organization [employer] Address [address] [facility] [address] [place] [address] Care Team Providers Care Product Design Engineer Name Role Phone Ambreen Forde MD Primary Care Provider Encounter Details Date Type Department Care Team (Latest Contact Info) Description 11/04/2024 Travel Social History Tobacco Use Types Packs/Day Years Used Date Smoking Tobacco: Former Cigarettes Q uit: 1979 Smokeless Tobacco: Never Alcohol Use Standard Drinks/Week [...] Diagnoses Not on filedocumented in this encounter Additional Health Concerns Assessment Noted Time PHQ-9 Depression Total Score: 4 05/18/20 24 10:04 AM EST documented as of this encounter Care Teams Product Design Engineer Relationship Specialty Start Date End Date Ambreen Forde MD [address] [place] [address] PCP - General Family Medicine 05/12/13 documented as of this encounter
--- OUTSIDE RECORDS SUMMARY | 2024-11-06 17:46 | XMS_ITS | Clinical Summary ---
Author Organization [employer] Address [address] [facility] [address] [place] [address] Care Team Providers Care Collar Starcher Name Role Phone Ambreen Forde MD Primary Care Provider [phone] Allergies Active Allergy Reactions Criticality Noted Date Comments Acetaminophen 05/19/2013 Codeine 05/19/2013 Oxycodone 05/19/2013 Medications cyclobenzaprine (Flexeril) 5 MG tablet Take 5 mg by mouth in the morning. Take 5 mg by mouth in the morning. 01/30/20 22 Active latanoprost (Xalatan) 0.005 % ophthalmic solution PLACE ONE DROP IN EACH EYE AT BEDTIME 06/26/20 22 Active metoprolol succinate XL (Toprol-XL) 100 MG 24 hr tablet Take 100 mg by mouth in the morning. 06/26/20 22 Active omega-3 (Fish Oil) 1000 MG capsule Active finasteride (Proscar) 5 MG tablet Take 5 mg by mouth in the morning. 04/03/20 22 Active Viagra 50 MG tabletIndication s:Raised prostate specific antigen TAKE 1 TABLET 1 HOUR BEFORE SEXUAL RELATIONS ONCE DAILY NEEDED. 25 tablet 06/14/20 23 Active Aspirin Low Dose 81 MG chewable tablet CHEW ONE TABLET EVERY MORNING 90 tablet 1 04/11/20 24 Active omeprazole (PriLOSEC) [address] capsuleIndicatio ns:Gastroesophag eal reflux disease without esophagitis TAKE ONE CAPSULE EVERY MORNING 30 TO 60 MINUTES BEFORE BREAKFAST 90 capsule 1 04/11/20 24 Active simvastatin (Zocor) 10 MG tablet TAKE ONE TABLET EVERY EVENING 90 tablet 1 04/11/20 24 Active lisinopril 40 MG tabletIndication s:Benign hypertension TAKE ONE TABLET EVERY MORNING 90 tablet 1 04/29/20 25 Active hydroCHLOROthiaz jazmine (Microzide) 12.5 MG capsuleIndicatio ns:Benign hypertension TAKE ONE CAPSULE EVERY MORNING 90 capsule 1 11/01/19 25 Active celecoxib (CeleBREX) 200 MG capsuleIndicatio ns:Pain and swelling of right knee Take 1 capsule (200 mg) by mouth if needed in the morning and at bedtime for mild pain for up to 10 days. 20 capsule 11/05/19 25 025 Active apixaban (Eliquis) 5 MG tabletIndication s:Coronary artery disease, unspecified vessel or lesion type, unspecified whether angina present, unspecified whether caddo or transplanted heart Take 1 tablet (5 mg) by mouth 2 times daily. 180 tablet 3 07/10/19 23 025 Discontinued lisinopril 40 MG tabletIndication s:Benign hypertension TAKE ONE TABLET EVERY MORNING 30 tablet 2 07/14/19 25 025 Discontinued hydroCHLOROthiaz jazmine 12.5 MG tabletIndication s:Benign hypertension TAKE ONE CAPSULE EVERY MORNING 30 tablet 2 07/14/19 25 025 Discontinued Active Problems Problem Noted Date Diagnosed Date PVD (peripheral vascular disease) 07/27/2024 Coronary artery disease involving caddo coronar y artery 06/18/2023 Raised prostate specific antigen 05/21/2014 Benign hypertension 09/25/2013 Hypercholesterolemia 09/25/2013 Encounters Date Type Department Care Team Description 11/04/2024 12:40 PM EDT Office Visit [facility] [address] [place] [address] Name, MD Jordan Pain and swelling of right knee (Primary Dx) 11/04/2024 Travel 10/30/2024 Refill [facility] [address] [place], [place] [phone] Ambreen Forde MD Benign hypertension from Last [...] (237 lb) 11/04/2024 11:31 AM EDT Height 174 cm (5' 8.5 ) 05/18/2024 10:02 AM EST Body Mass Index 35.51 05/18/2024 10:02 AM EST Plan of Treatment [...] Positive( A) Negative 06/10/2024 9:30 PM EST [facility] (CLIA #:[id number]) Comment: POSITIVE TEST RESULT. A positive Cologuard [...] (Ranjan Mcgovern al, N Engl J Med 2014;370(14):4864-2896.) Cologuard may produce a false negative or false positive result (no colorectal cancer or precancerous polyp present at colonoscopy follow up). A negative Cologuard test result does not guarantee the absence of CRC or advanced adenoma (pre-cancer). The current Cologuard screening interval is every 3 years. ([place] [employer] Society and U.S. Multi-Society Task Force). Cologuard performance data in a 10,000 patient pivotal study using colonoscopy as the reference method can be accessed at the following location: [email or web address]/results. Additional description of the Cologuard test process, warnings and precautions can be found at [email or web address]. Stool specimen (specimen) 05/25/2024 1:00 PM EST 05/27/2024 7:23 AM EST Ambreen Forde MD LAB MOLECULAR DIAGNOSTICS ORDERA BLES Final Result [facility] (CLIA #:[id number]) [address] [place] [address], * (ABNORMAL) Lipid Panel, Standard (05/25/2024 12:45 PM EST) Triglycerides 112 <150 mg/dL [facility] Comment:Desirable Triglyceri de: less than 150 mg/dLBorderline High Triglyceride 150-199 mg/dLHigh Triglyceride: 200-499 mg/dLVery High Triglyceride: greater than or equal to 5OO mg/dL Cholesterol 193 <200 mg/dL [facility] Comment:Desirable Cholestero l: less than 200 mg/dLBorderline High Cholesterol: 200-239 mg/dLHigh Cholesterol: greater than 239 mg/dL LDL Cholesterol Calculated 125(H) <100 mg/dL [facility] Comment:Desirable LDL: less than 100 mg/dLNear Optimal/Above Optimal LDL: 110- 129 mg/dLBorderline High LDL: 130-159 mg/dLHigh LDL: 160-189 mg/dLVery High LDL: greater than or equal to 190 mg/dL HDL Cholesterol 46 >40 mg/dL [facility] Comment:Desirable HDL: great er than 40 mg/dL Note: This HDL assay may give artificially low results in patients with liver disease. Blood Venous blood specimen / Unknown 05/25/2024 12:45 PM EST 05/25/2024 2:07 PM EST Ambreen Forde MD LAB BLOOD ORDERABLES Final Resul t Performing Organization Address City/State/[facility] Co de Phone Number [facility] [address] [place] [address] [phone] * Colonoscopy (09/13/2014) Colonoscopy Normal Normal Historical Provider HEALTH MAINTENANCE Final Result from Last 3 Months or Most Recently Relevant to Health Maintenance Insurance [facility] MEDICARE ADVANTAGE HMO [employer] [id number] [employer] [place] [id number] [employer] [place] [id number] Care Teams Collar Starcher Relationship Specialty Start Date End Date Ambreen Forde MD [address] [place] [id number] PCP - General Family Medicine 05/12/13
== END 2024-11-06 16:35 | disposition home or self-care (01) ==
LOC: HO.XRAY 16:34
PROVIDERS: PCP Internal Medicine Geriatric Medicine; Visit Provider Internal Medicine Geriatric Medicine
DX: M25.461 Effusion, right knee (principal); M25.561 Pain in right knee
CPT/HCPCS: 73562

== ENCOUNTER → 2024-11-06 16:40 | Outpatient (BNV) | payer MEDICARE, MEDICAID, SELFPAY | PROVIDERS: PCP Internal Medicine Geriatric Medicine; Visit Provider Radiology Diagnostic Radiology | DX: M76.891 Other specified enthesopathies of right lower limb, excluding foot (principal) | CPT/HCPCS: 73562 ==

== ENCOUNTER 2025-01-08 14:19 | Outpatient (AMB) | payer MEDICARE, MEDICAID, SELFPAY ==
--- NOTE | 2025-01-08 14:23 | MHC.OFFVIS ---
Vital Signs 01/08/25 14:28 Height 5 ft 9 in Weight 238 lb BMI 35.1 Intake Visit Reasons: New Pt - right knee pain Intake Note: Gabino is a 74 year old male who presents today as a new patient for a evaluation of his right knee pain. Patient reports ongoing pain for about 2 months. He states that he was putting tiles on the floor and he was kneeling for some time when he felt sharp pain in his knee when he was getting up. He has tried ibuprofen and tylenol with mild relief. Switch House Operator Services: Switch House Operator Present (Faustino ([id number])) Allergies codeine (CODEINE) Allergy (Intermediate, Verified 01/08/25 14:26) CONFUSION; DIZZYNESS oxycodone (From PERCOCET) Allergy (Intermediate, Verified 01/08/25 14:26) confusion/dizziness HPI HPI New Pt - right knee pain: Details: Mr. Forte is a 74 year old male who presents today for a evaluation of his right knee pain. Patient reports ongoing pain for about 2 months. He states that he was putting tiles on the floor and he was kneeling for some time when he felt sharp pain in his knee when he was getting up. He has tried ibuprofen and tylenol with mild relief. [facility] Medical History CAD (coronary artery disease) Hyperlipidemia Elevated cholesterol GERD (gastroesophageal reflux disease) HTN (hypertension) Umbilical hernia Erectile dysfunction BPH (benign prostatic hyperplasia) Kidney stone Elevated PSA Surgical History Hx of cardiac catheterization Hx of hemorrhoidectomy H/O colonoscopy Hx of lithotripsy History of hernia repair History of prostate biopsy Family History Sister Breast cancer Social History (Updated 01/08/25 @ 14:28 by Mark Ortiz) Household Members Other:: sister living with him temporarily Are you a primary care partner to a significant other at home: No Do you presently have visiting nurse or other home services: No Alcohol intake: never Patient Tobacco Use Status: Former Tobacco user Current occupational status: retired Review of Systems Const All systems reviewed & are unremarkable except as noted in HPI and below Physical Exam Vital Signs: BMI result Body Mass Index 35.1 Const General: cooperative, healthy appearing and no acute distress Resp Effort & Inspection: normal respiratory effort and able to speak in complete sentences Extrem Other: Right knee: Callus formation over the anterior aspect of the knee from persistent kneeling. No ecchymosis, erythema, or joint effusion. No tenderness to palpation along the medial or lateral joint lines. Full knee extension and flexion. No crepitus felt with range of motion. NVI. Office Procedures AMB Joint Injection/Aspiration Joint Injection/Aspiration Primary Site: right knee Prep: site was prepped using aseptic technique, ethochloride spray was applied and injection warnings given Injected: 80 mg of, with 8 mL of (2% plain lidocaine) and in the joint Approach Used: anterolateral Procedure: The patient tolerated the procedure well, but had some pain with the injection and there was some relief with the local anesthesia Coding - Large joint Procedure code (CPT) selection complete Assessment & Plan Assessment & Plan (1) Patellofemoral arthritis of right knee: Code(s): M17.11 - Unilateral primary osteoarthritis, right knee Category: Medical Plan The patient was offered a cortisone injection in the right knee with 80 mg of DepoMedrol. The patient was explained the risks, benefits, and alternatives to receiving this injection. After receiving consent for the injection, the patient had the procedure done while in the office today. The patient tolerated the procedure well with no complications. Follow-up will be PRN, or sooner if needed X-rays of the right knee which were obtained on 11/06/2024 are negative for any acute fracture dislocation. Patellofemoral arthritis noted with moderate size anterior superior patellar osteophyte. Coding Level of Care Code New Pt Level 3 (83998) Diagnoses Patellofemoral arthritis of right knee M17.11 CPT Codes Coding - Large joint: 12055 - Large joint ([id number])
[2025-01-08 14:28] VITALS: BMI 35.1
--- OUTSIDE RECORDS SUMMARY | 2025-01-08 14:48 | XMS_ITS | Encounter Summary ---
Author Organization [employer] Address [address] [place] [address] Care Team Providers Care Body Mechanic Name Role Phone Ambreen Forde MD Primary Care Provider [phone] Reason for Visit * Reason Comments Med Refill Encounter Details Date Type Department Care Team (Late st Contact Info) Description 04/13/2023 Refill [facility] [address] [place] [address] Ambreen Forde MD [address] [place] [address] Benign hypertension Social History Tobacco Use Types Packs/Day Years Used Date Smoking Tobacco: Never Assessed Sex and Gender Information Value Date Recorded Sex Assigned at Male 05/04/2022 10:23 AM EDT Legal Sex Male 10:23 AM EDT Gender Identity Male 05/04/2022 10:23 AM EDT Sexual Orientation Straight 05/04/2022 10 :23 AM EDT documented as of this encounter Plan of Treatment Upcoming Encounters Date Type Department Care Team (Late st Contact Info) Description 01/31/2025 10:45 AM EDT Office Visit [facility] [address] [place] [address] Ambreen Forde MD [address] [place] [address] documented as of this encounter Visit Diagnoses Diagnosis Benign hypertension Essential hypertension, benign documented in this encounter Care Teams Body Mechanic Relationship Specialty Start Date End Date Ambreen Forde MD [address] [place] [address] PCP - General Family Medicine 05/12/13 documented as of this encounter
== END 2025-01-08 15:13 | disposition home or self-care (01) ==
LOC: HO.HOS 14:19
PROVIDERS: PCP Internal Medicine Geriatric Medicine; Visit Provider Physician Assistant
DX: M17.11 Unilateral primary osteoarthritis, right knee (principal)
CPT/HCPCS: 20610; 99203

== ENCOUNTER → 2025-01-08 14:19 | Outpatient (BNVA) | payer MEDICARE, MEDICAID, SELFPAY | PROVIDERS: PCP Internal Medicine Geriatric Medicine; Visit Provider Physician Assistant | DX: M17.11 Unilateral primary osteoarthritis, right knee (principal); Z79.52 Long term (current) use of systemic steroids | CPT/HCPCS: 20610; 99202; J1010; J2003 ==

== ENCOUNTER 2025-02-06 13:18 | Outpatient (REF) | payer MEDICARE, MEDICAID, SELFPAY ==
--- OUTSIDE RECORDS SUMMARY | 2025-02-06 13:58 | XMS_ITS | Encounter Summary ---
Author Organization [employer] Address [address] [place] [address] Care Team Providers Care Flight Operations Specialist Name Role Phone Ambreen Forde MD Primary Care Provider [phone] Reason for Visit * Reason Comments Med Refill Encounter Details Date Type Department Care Team (Late st Contact Info) Description 04/13/2023 Refill [facility] [address] [place] [address] Ambreen Forde MD [address] [place] [address] Benign hypertension Social History Tobacco Use Types [...] Care Team (Late st Contact Info) Description 03/01/2025 11:30 AM EDT Office Visit [facility] [address] [place] [address] Ambreen Forde MD [address] [place] [address] documented as of this encounter Visit Diagnoses Diagnosis Benign hypertension Essential hypertension, benign documented in this encounter Care Teams Flight Operations Specialist Relationship Specialty Start Date End Date Ambreen Forde MD [address] [place] [address] PCP - General Family Medicine 05/12/13 documented as of this encounter
[2025-02-06 14:06] LABS: Appearance Urine Clear; Glucose Urine UA Negative (Negative); PH 5.5 (5.0-9.0); Specific Gravity - Urine 1.020 (1.005-1.025); UMIC TRIGGER UA YES
== END 2025-02-06 13:19 | disposition home or self-care (01) ==
LOC: HO.LAB 13:18
PROVIDERS: PCP Student in an Organized Health Care Education/Training Program; Visit Provider Urology
DX: R39.12 Poor urinary stream (principal); R39.15 Urgency of urination; N39.0 Urinary tract infection, site not specified
CPT/HCPCS: 81001; 87086

== ENCOUNTER 2025-02-15 15:38 | Outpatient (REF) | payer MEDICARE, MEDICAID, SELFPAY ==
--- NOTE | ~2025-02-15 | XR_ITS ---
EXAMINATION: XR ABDOMEN KUB CLINICAL INDICATION: N20.0 - Calculus of kidney COMPARISON: Correlated to CT abdomen and pelvis dated September 01, 2019 TECHNIQUE: AP view of the abdomen. FINDINGS: Patient's large body habitus. No calcifications overlapping the kidney shadows. Nonspecific calcifications in the lower pelvis. Vascular clips in the left lower pelvis. Multilevel thoracic and lumbar spondylosis. Degenerative changes in the coxofemoral joints and sacroiliac joints. No intestinal obstruction pattern. XR/XR KUB IMPRESSION: No nephrolithiasis based upon x-ray. Electronically signed by: Brian Caballero MD 02/15/2025 04:04 PM EDT
== END 2025-02-15 15:39 | disposition home or self-care (01) ==
LOC: HO.LAB 15:38
PROVIDERS: Visit Provider Urology
DX: N20.0 Calculus of kidney (principal)
CPT/HCPCS: 74018

== ENCOUNTER → 2025-02-15 15:41 | Outpatient (BNV) | payer MEDICARE, MEDICAID, SELFPAY | PROVIDERS: Visit Provider Radiology Diagnostic Radiology | DX: M47.815 Spondylosis without myelopathy or radiculopathy, thoracolumbar region (principal) | CPT/HCPCS: 74018 ==

== ENCOUNTER 2025-04-10 10:46 | Outpatient (AMB) | payer MEDICARE, MEDICAID, SELFPAY ==
--- NOTE | 2025-04-10 10:44 | A.OFFVIS_ITS ---
Intake Visit Reasons: 6m/UA Intake Note: Patient is present for 6mo follow up Urology Medication:Finasteride, Oxybutynin, Sildenafil, Tamsulosin Antibiotic Allergy:NONE Blood Thinner:Aspirin PVR:68 mls Playground Supervisor Required: No Accompanied by: Self / Same As Patient Allergies codeine (CODEINE) Allergy (Intermediate, Verified 04/10/25 10:45) CONFUSION; DIZZYNESS oxycodone (From PERCOCET) Allergy (Intermediate, Verified 04/10/25 10:45) confusion/dizziness HPI Comments Details: Gabino is a pleasant male. He is a patient of Dr. Forde. 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 Stop Tamsulosin, stop oxybutynin Continue finasteride Refill sildenafil Six-month follow-up PSA Nephrolithiasis Imaging 03/26 renal ultrasound negative 09/24 - renal ultrasound 3 mm stone left, bilateral 1.5 cm cyst Bosniak 1 10/26 - renal ultrasound bilateral Bosniak 1 cysts Lower urinary tract symptoms Ongoing Current therapy finasteride and tamsulosin PSA 03/26 6.0, 10/25 3.9, 10/26 3.9 Prior prostate biopsy negative Bladder ultrasound - 11/25 - 30 cc residual, prostate 125 g Cystoscopy with large obstructing prostate Greenlight laser - 03/28 - 135kW Erectile dysfunction Sildenafil on demand On combination chlorthalidone, metoprolol, lisinopril PFSH Medical History CAD (coronary artery disease) Hyperlipidemia Elevated cholesterol GERD (gastroesophageal reflux disease) HTN (hypertension) Umbilical hernia Erectile dysfunction BPH (benign prostatic hyperplasia) Kidney stone Elevated PSA Surgical History Hx of cardiac catheterization Hx of hemorrhoidectomy H/O colonoscopy Hx of lithotripsy History of hernia repair History of prostate biopsy Family History Sister Breast cancer Social History (Updated 01/08/25 @ 14:28 by Mark Ortiz) Household Members Other:: sister living with him temporarily Are you a primary lead caregiver to a significant other at home: No Do you presently have visiting nurse or other home services: No Alcohol intake: never Patient Tobacco Use Status: Former Tobacco user Current occupational status: retired Assessment & Plan Assessment & Plan (1) BPH (benign prostatic hyperplasia): Code(s): N40.0 - Benign prostatic hyperplasia without lower urinary tract symptoms Category: Medical (2) Urinary urgency: Code(s): R39.15 - Urgency of urination Category: Medical (3) Erectile dysfunction: Code(s): N52.9 - Male erectile dysfunction, unspecified Category: Medical Plan Six-month follow-up PSA Orders: Orders Prostate Specific Antigen 6 Months R39.15 - Urgency of urination Medications: Refilled sildenafil administer 30 minutes to 4 hours before activity 100 mg PO DAILY PRN 30 tabs 0RF Erectile Dysfunction 30 days N52.9 - Male erectile dysfunction, unspecified finasteride 5 mg PO DAILY 90 tabs 3RF 90 days N40.0 - Benign prostatic hyperplasia without lower urinary tract symptoms Discontinued tamsulosin Discontinued Reason: Patient Completed Course 0.4 mg PO BEDTIME 90 days 90 caps 3RF R97.20 - Elevated prostate specific antigen [PSA] sulfamethoxazole-trimethoprim 800-160 mg (Bactrim DS) Discontinued Reason: Patient Completed Course 1 tab PO BID 5 days 10 tabs 0RF Patient Instructions: This note is constructed using voice recognition software. While every effort has been made to ensure accuracy product accountant errors may have been included. Imaging studies, laboratory and physical exam results were discussed and rev iewed in detail. No major barriers to patient understanding were identified. An opportunity to ask questions regarding the treatment plan was provided. All questions were answered. The patient expressed understanding and agreement with the above treatment plan. The patient is aware they should contact our office by phone for worsening of their current condition or the appearance of new urologic symptoms. Compliance is encouraged with any medications and followup testing that is ordered. It is a privilege to participate in the urologic care of your patient. If you have any questions or concerns regarding treatment for the above conditions, or other urologic issues, please do not hesitate to contact me. The office telephone contact is [phone]. Sincerely, Dr Miguel Callejas MD, [facility] - Urology Compassionate Specialist Care for the Genitourinary System Coding Level of Care Code Est Pt Level 3 (95834) Complex EM visit Add On G2211 Diagnoses BPH (benign prostatic hyperplasia) N40.0 Urinary urgency R39.15 Erectile dysfunction N52.9
--- OUTSIDE RECORDS SUMMARY | 2025-04-10 13:08 | XMS_ITS | Encounter Summary ---
Author Organization [employer] Address [address] [facility] 7[address] [place] [address] Care Team Providers Care Director Data Name Role Phone Ambreen Forde MD Primary Care Provider [phone] Encounter Details Date Type Department Care Team (Latest Contact Info) Description 05/04/2019 Abstract [facility] CONVERSIONS Dental, Provider, DDS Social History [...] on filedocumented in this encounter Care Teams Director Data Relationship Specialty Start Date End Date Ambreen Forde MD [address] [place] [address] PCP - General Family Medicine 05/12/13 documented as of this encounter
--- OUTSIDE RECORDS SUMMARY | 2025-04-10 13:08 | XMS_ITS | Encounter Summary ---
Author Organization [employer] [facility] Address [address] [facility] [address]t [place] [address] Care Team Providers Care Kitchen Food Server Name Role Phone Ambreen Forde MD Primary Care Provider [phone] Reason for Visit * Reason Comments Med Refill Encounter Details Date Type Department Care Team (Late st Contact Info) Description 04/13/2023 Refill [facility] [address] [place] [address] Ambreen Forde MD [address] [place], [place] [phone] Benign hypertension Social History Tobacco Use Types [...] benign documented in this encounter Care Teams Kitchen Food Server Relationship Specialty Start Date End Date Ambreen Forde MD [address] [place] [address] PCP - General Family Medicine 05/12/13 documented as of this encounter
--- OUTSIDE RECORDS SUMMARY | 2025-04-10 13:08 | XMS_ITS | Encounter Summary ---
Author Organization [employer] Address [address] [facility] [address] [place] [address] Care Team Providers Care Donkey Ride Operator Name Role Phone Ambreen Forde MD Primary Care Provider [phone] Reason for Visit * Reason Comments Med Refill Encounter Details Date Type Department Care Team (Late st Contact Info) Description 03/30/2023 Refill [facility] [address] [place], [place] [phone] Ambreen Forde MD [address] [place], [place] [phone] Benign hypertension Social History Tobacco Use Types [...] benign documented in this encounter Care Teams Donkey Ride Operator Relationship Specialty Start Date End Date Ambreen Forde MD [address] [place] [address] PCP - General Family Medicine 05/12/13 documented as of this encounter
--- OUTSIDE RECORDS SUMMARY | 2025-04-10 13:08 | XMS_ITS | Clinical Summary ---
Author Organization [email or web address] Address [address] [facility] 7t [place] [address] Care Team Providers Care Tobacco Conditioner Name Role Phone Ambreen Forde MD Primary Care Provider Allergies Active Allergy Reactions Criticality Noted Date Comments Acetaminophen 05/19/2013 Codeine 05/19/2013 Ibuprofen 02/12/2025 Oxycodone 05/19/2013 Medications cyclobenzaprine (Flexeril) 5 MG tablet Take 5 mg by mouth in the morning. Take 5 mg by mouth in the morning. 2 Active latanoprost (Xalatan) 0.005 % ophthalmic solution PLACE ONE DROP IN EACH EYE AT BEDTIME 2 Active omega-3 (Fish Oil) 1000 MG capsule Active finasteride (Proscar) 5 MG tablet Take 5 mg by mouth in the morning. 2 Active Viagra 50 MG tabletIndication s:Raised prostate specific antigen TAKE 1 TABLET 1 HOUR BEFORE SEXUAL RELATIONS ONCE DAILY NEEDED. 25 tablet 3 Active lisinopril 40 MG tabletIndication s:Benign hypertension TAKE ONE TABLET EVERY MORNING 90 tablet 1 5 Active Additional Information Patient not taking.Reported on 02/12/2025 hydroCHLOROthiaz jazmine (Microzide) 12.5 MG capsuleIndicatio ns:Benign hypertension TAKE ONE CAPSULE EVERY MORNING 90 capsule 1 5 Active Aspirin Low Dose 81 MG chewable tablet CHEW ONE TABLET EVERY MORNING 90 tablet 1 5 Active omeprazole (PriLOSEC) [address] capsuleIndicatio ns:Gastroesophag eal reflux disease without esophagitis TAKE ONE CAPSULE EVERY MORNING 30 TO 60 MINUTES BEFORE BREAKFAST 90 capsule 1 5 Active simvastatin (Zocor) 10 MG tablet TAKE ONE TABLET EVERY EVENING 90 tablet 1 5 Active metoprolol succinate XL (Toprol-XL) 100 MG 24 hr tablet Take 1 tablet (100 mg) by mouth in the morning. 30 tablet 11 5 03/09/20 26 Active pseudoephedrine (Sudafed) 30 MG tablet Take 1 tablet (30 mg) by mouth every 4 (four) hours if needed for congestion for up to 10 days. 30 tablet 5 Active Active Problems Problem Noted Date Diagnosed Date PVD (peripheral vascular disease) 07/27/2024 Coronary artery disease involving [place] coronar y artery 06/18/2023 Raised prostate specific antigen 05/21/2014 Benign hypertension 09/25/2013 Hypercholesterolemia 09/25/2013 Encounters Date Type Department Care Team Description 04/10/2025 Telephone [facility] PED[facility] [address] [place] [address] Ambreen Forde MD B/p machine 04/04/2025 2:30 PM EDT Clinical Support [facility] [address] [place] [address] Michaela Martinez, RN Benign hypertension 04/04/2025 Telephone [facility] [address] [place] [address] Michaela Martinez RN 04/04/2025 Travel 03/27/2025 3:30 PM EDT Office Visit [facility] AD[facility] [address] [place] [address] Gagan Moss DDS 03/14/2025 11:30 AM EDT Office Visit [facility] [address] [place] [address] Ambreen Forde MD Upper respiratory tract infection, unspecified type 03/14/2025 Travel 03/09/2025 9:00 AM EDT Office Visit [facility] [address] [place] [address] Gagan Moss DDS 03/09/2025 Orders Only [facility] [address] [place] [address] Ambreen Forde MD 03/09/2025 Travel 03/07/2025 Telephone [facility] [address] [place] [address] Ambreen Forde MD Med Refill 03/02/2025 1:00 PM EDT Office Visit [facility] [address] [place] [address] Gagan Moss, DDS 03/01/2025 Telephone [facility] [address] [place] [address] Ambreen Forde MD No Show 02/28/2025 Telephone [facility] [address] [place] [address] Ambreen Forde MD Chart Prep 02/21/2025 11:00 AM EDT Office Visit [facility] [address] [place] [address] Gagan Moss, DDS 02/14/2025 11:00 AM EDT Office Visit [facility] [address] [place] [address] Fredi Pickard Dental calculus (Primary Dx) 02/13/2025 2:00 PM EDT Office Visit [facility] [address] [place] [address] Yuki Vieira DDS 02/12/2025 1:00 PM EDT Office Visit [facility] [address] [place] [address] Gagan Moss, DDS 02/06/2025 Orders Only GENERIC EXTERNAL DATA DEPARTMENT Provider, Generic External Data 01/31/2025 Telephone [facility] [address] [place] [address] Ambreen Forde MD No Show 01/30/2025 Telephone [facility] [address] [place] [address] Ambreen Forde MD Chart Prep 01/24/2025 Patient Outreach [facility] [address] [place] [address] Ambreen Forde MD Pre-visit Planning (SDOH screening negative and Tobacco screening negative) from Last 3 Months Immunizations Immunization Administration Dates Next Due Influenza High-dose Quadriva lent Preservative Free 07/07/2022,04/23/2020 Influenza Injectable Quadriv alant Preservative Free IIV4 [...] Access Answer Date Recorded Internet Access Q1 Yes 01/24/2025 Internet Access Q2 I do not want or need it 01/03 Sex and Gender Information Value Date Recorded Sex Assigned at Male 05/04/2022 10:23 AM EDT Legal Sex Male 10:23 AM EDT Gender Identity Male 05/04/2022 10:23 AM EDT Sexual Orientation Straight 05/04/2022 10 :23 AM EDT Last Filed Vital Signs Vital Sign Reading Time Taken Comments Blood Pressure 132/80 04/04/2025 3:54 PM EDT Pulse 62 04/04/2025 3:53 PM EDT Temperature 36.7 C (98.1 F) 03/14/2025 11:42 AM EDT Respiratory Rate 22 03/14/2025 11:42 AM EDT Oxygen Saturation 96% 03/14/2025 11:42 AM EDT Inhaled Oxygen Concentration - - Weight 102 kg (224 lb 12.8 oz) 04/04/2025 3:53 P M EDT Height 174 cm (5' 8.5 ) 03/14/2025 11:42 AM EDT Body Mass Index 33.68 03/14/2025 11:42 AM EDT Plan of Treatment Health Maintenance Due Date Last Done Comments CT Colonography 1951 FIT 1950 Sigmoidoscopy 1950 Hepatitis C Screening 1969 RSV Patients and Patients Aged 60 years or older (1 - Risk 60-74 years 1-dose series) 2011 Dental Oral Exam 10/11/2019 04/10/2019, , 02/22/2018 Dental X-Ray: Full Mouth 02/23/2021 02/22/2018 Colonoscopy 09/13/2024 09/13/2014 COVID-19 Vaccine ( season) 2025 05/18/2024, 10/04/2020, 09/06/2020 Influenza Vaccine (#1) 2025 , 07/07/2022, 06/10/2021, Additional history exists Alcohol/Substance Use Screening 05/18/2025 05/18/2024 Depression Screening 05/18/2025 05/18/2024, 05/18/20 FOBT 05/25/2025 05/25/2024 Dental Prophylaxis 08/18/2025 02/14/2025, 1 , 10/31/2018, Additional history exists SDOH Screening 01/24/2026 01/24/2025 Dental X-Ray: Bitewings 02/15/2026 02/15/20, 08/29/2018, 02/22/2018 Tobacco Screening 03/14/2026 03/14/2025 Colorectal Cancer Screening 05/25/2027 FIT DNA/Cologuard 05/25/2027 05/25/2024 DTaP/Tdap/Td Vaccines (2 - Td or Tdap) 06/07/2027 06/07/2017 Lipid Panel 05/25/2029 05/25/2024 Pneumococcal Vaccine: 50+ Years Completed 06/07/2017, 05/20/2016 Zoster Vaccines Completed 11/26/2021, 09/24/2021 HIB Vaccines Aged Out No longer eligi [...] patient's age to complete this topic Meningococcal B Vaccine Aged Out No l onger eligible based on patient's age to complete [...] Procedure Name Priority Date/Time Associated Diagnosis Comments 29 ADD TOOTH TO EXISTING PARTIAL DENTURE Routine 03/27/2025 3:30 PM EDT POCT RAPID COVID ANTIGEN Routine 03/14/2025 11:51 AM EDT Upper respiratory tract infection, unspecified type POCT RAPID STREP A Routine 03/14/2025 11 :50 AM EDT Upper respiratory tract infection, unspecified type POCT INFLUENZA B Routine 03/14/2025 11:4 9 AM EDT Upper respiratory tract infection, unspecified type POCT INFLUENZA A Routine 03/14/2025 11:4 8 AM EDT Upper respiratory tract infection, unspecified type NO CHARGE PROCEDURE Routine 03/09/2025 9 :00 AM EDT CASE PRESENTATION, DETAILED AND EXTENSIVE TREATMENT PLANNING Routine 02/21/2025 11:00 AM EDT 29 EXTRACTION, ERUPTED TOOTH OR EXPOSED ROOT (ELEVATION/FORCEPS REMOVAL) Routine 02/21/2025 11:00 AM EDT COMPREHENSIVE PERIODONTAL EVALUATION - NEW OR ESTABLISHED PATIENT Routine 02/14/2025 11:00 AM EDT INTRAORAL - PERIAPICAL FIRST RADIOGRAPHIC IMAGE Routine 02/14/2025 11:00 AM EDT BITEWINGS - 4 RADIOGRAPHIC IMAGES Routine 02/14/2025 11:00 AM EDT CASE PRESENTATION, DETAILED AND EXTENSIVE TREATMENT PLANNING Routine 02/14/2025 11:00 AM EDT ORAL HYGIENE INSTRUCTIONS Routine 02/14/2025 11:00 AM EDT PROPHYLAXIS - ADULT Routine 02/14/2025 1 1:00 AM EDT INTRAORAL - PERIAPICAL EACH ADDITIONAL RADIOGRAPHIC IMAGE Routine 02/14/2025 11:00 AM EDT LIMITED ORAL EVALUATION - PROBLEM FOCUSED Routine 02/13/2025 2:00 PM EDT CASE PRESENTATION, DETAILED AND EXTENSIVE TREATMENT PLANNING Routine 02/13/2025 2:00 PM EDT INTRAORAL - PERIAPICAL FIRST RADIOGRAPHIC IMAGE Routine 02/13/2025 2:00 PM EDT 32 LIMITED ORAL EVALUATION - PROBLEM FOCUSED Routine 02/12/2025 1:00 PM EDT URINALYSIS, COMPLETE Routine 02/06/2025 1:23 PM EDT CULTURE, URINE, ROUTINE Routine 02/06/2025 1:23 PM EDT LAB COLOGUARD COLON CANCER SCREEN Routine 05/25/2024 1:00 PM EST Screening for colon cancer LIPID PANEL, STANDARD Routine 05/25/2024 12:45 PM EST Benign hypertension PERIODIC ORAL EVALUATION - ESTABLISHED PATIENT Routine 04/10/2019 12:00 AM EDT INTRAORAL - COMPLETE SERIES OF RADIOGRAPHIC IMAGES Routine 02/22/2018 12:00 AM EDT HM COLONOSCOPY Routine 09/13/2014 from Last 3 Months or Most Recently Relevant to Health Maintenance Results * POCT Rapid Covid-19 BinaxNOW (03/14/2025 11:51 AM EDT) [facility] Rapid COVID Ag Negative QC Media Lot # [id number] Lot# Expiration Date 7651,[id number] Swab 03/14/2025 11:5 1 AM EDT us Ambreen Forde MD POINT OF CARE TEST ENTER/EDIT OR DERABLES Final Result * POCT Rapid Strep A OSOM (03/14/2025 11:50 AM EDT) [facility] Rapid Strep A Screen Negative Negative, None Detected QC Media Lot # [id number] Lot# Expiration Date ,025 Swab 03/14/2025 11:5 0 AM EDT us Ambreen Forde MD POINT OF CARE TEST ENTER/EDIT OR DERABLES Final Result * POCT Rapid Influenza B OSOM (03/14/2025 11:49 AM EDT) [facility] Rapid Influenza B Ag Negative Negative, Indeterminate QC Media Lot # [id number] Lot# Expiration Date , Swab 03/14/2025 11:4 9 AM EDT us Ambreen Forde MD POINT OF CARE TEST ENTER/EDIT OR DERABLES Final Result * POCT Rapid Influenza A OSOM (03/14/2025 11:48 AM EDT) [facility] Rapid Influenza A Ag Negative Negative, Indeterminate QC Media Lot # [id number] Lot# Expiration Date , Swab Nasopharyngeal structure / Unknown 03/14/2025 11:48 AM EDT us Ambreen Forde MD POINT OF CARE TEST ENTER/EDIT OR DERABLES Final Result * (ABNORMAL) Urinalysis Complete (02/06/2025 1:23 PM EDT) Color Urine Yellow [facility] Appearance Urine Clear [facility] PH 5.5 5.0 - 9.0 [facility] Glucose Urine UA Negative Negative mg/dL [facility] Urine Blood Negative Negative [facility] Specific Artie - Urine 1.020 1.005 - 1.025 [facility] Urine Protein 100 (2+)(A) Neg-Trace mg/dL [facility] Urine Ketones Trace Negative mg/dL [facility] Nitrite Urine Negative Negative [facility] Leukocyte Esterase Urine Small (1+)(A) Negative [facility] RBC Urine 0-2 0 - 2 /HPF [facility] Urine WBC 11-20(A) 0 - 5 /HPF [facility] Urine Squamous Epithelial Cell 0-2 0 - 2 /HPF [facility] Urine Bacteria None Seen None Seen [facility] Hyaline Casts, Urine 0-2 0 - 2 /LPF [facility] 02/06/2025 1:23 PM EDT 02/06/2025 1:55 PM EDT us Generic External Data Provider LAB URINE ORDERAB LES Final Result [facility] [address] [place] [address] [phone] * Culture, Urine, Routine (02/06/2025 1:23 PM EDT) Urine Urine specimen obtained by clean catch procedure / Unknown 02/06/2025 1:23 PM EDT 02/06/2025 1:55 PM EDT Comment:UACC Narrative [facility] - 02/07/2025 10:45 AM EDT Urine Culture Report Result Urine Culture < 10,000 cfu/ml Specimen Source: Urine clean catch us Generic External Data Provider LAB MICROBIOLOGY - GENERAL ORDERABLES Final Result [facility] [address] [place] [phone] * (ABNORMAL) Cologuard?? colon cancer screening (05/25/2024 1:00 PM EST) Cologuard Result Positive( A) Negative 06/10/2024 9:30 PM EST [facility] (CLIA #:[id number]) Comment: POSITIVE TEST RESULT. A positive Cologuard result should be followed with a colonoscopy or visual examination of the colon. The normal value (reference range) for this assay is negative. TEST DESCRIPTION: Composite algorithmic analysis of stool DNA-biomarkers with hemoglobin immunoassay. Quantitative values of individual biomarkers are not [...] (Ranjan Mcgovern al, N Engl J Med 2014;370(14):3538-0518.) Cologuard may produce a false negative or false positive result (no colorectal cancer or precancerous polyp present at colonoscopy follow up). A negative Cologuard test result does not guarantee the absence of CRC or advanced adenoma (pre-cancer). The current Cologuard screening interval is every 3 years. ([place] [employer] Society and U.S. Multi-Society Task Force). Cologuard performance data in a 10,000 patient pivotal study using colonoscopy as the reference method can be accessed at the following location: [email or web address]/results. Additional description of the Cologuard test process, warnings and precautions can be found at www.Virtual [email or web address]. Stool specimen (specimen) 05/25/2024 1:00 PM EST 05/27/2024 7:23 AM EST us Ambreen Forde MD LAB MOLECULAR DIAGNOSTICS ORDERA BLES Final Result [facility] (CLIA #:[id number]) [address] [place] [address], * (ABNORMAL) Lipid Panel, Standard (05/25/2024 12:45 PM EST) Triglycerides 112 <150 mg/dL [facility] Comment:Desirable Triglyceri de: less than 150 mg/dLBorderline High Triglyceride 150-199 mg/dLHigh Triglyceride: 200-499 mg/dLVery High Triglyceride: greater than or equal to 5OO mg/dL Cholesterol 193 <200 mg/dL [facility] Comment:Desirable Cholestero l: less than 200 mg/dLBorderline High Cholesterol: 200-239 mg/dLHigh Cholesterol: greater than 239 mg/dL LDL Cholesterol Calculated 125(H) <100 mg/dL [facility] Comment:Desirable LDL: less than 100 mg/dLNear Optimal/Above Optimal LDL: 110- 129 mg/dLBorderline High LDL: 130-159 mg/dLHigh LDL: 160-189 mg/dLVery High LDL: greater than or equal to 190 mg/dL HDL Cholesterol 46 >40 mg/dL [facility] Comment:Desirable HDL: great er than 40 mg/dL Note: This HDL assay may give artificially low results in patients with liver disease. Blood Venous blood specimen / Unknown 05/25/2024 12:45 PM EST 05/25/2024 2:07 PM EST Ambreen Forde MD LAB BLOOD ORDERABLES Final Resul t [facility] [address] [place] [address] [phone] * Colonoscopy (09/13/2014) Colonoscopy Normal Normal Historical Provider HEALTH MAINTENANCE Final Result from Last 3 Months or Most Recently Relevant to Health Maintenance Insurance [facility] MEDICARE ADVANTAGE HMO [place] STAND [facility]ULT [facility]AL - [facility] Care Teams Tobacco Conditioner Relationship Specialty Start Date End Date Ambreen Forde MD [address] [place] [id number] PCP - General Family Medicine 05/12/13
--- OUTSIDE RECORDS SUMMARY | 2025-04-10 13:08 | XMS_ITS | Encounter Summary ---
Author Organization [employer] Address [address] [facility] 7t [place] [address] Care Team Providers Care Operations Support Representative Name Role Phone Ambreen Forde MD Primary Care Provider [phone] Reason for Visit * Reason Onset Date Comments B/p machine 04/10/2025 Encounter Details Date Type Department Care Team ([facility] Contact Info) Description 04/10/2025 Telephone [facility] [address] [place] [address] Ambreen Forde MD [address] [place] [address] B/p machine Social History Tobacco Use Types Packs/Day Years [...] encounter Miscellaneous Notes * Telephone Encounter - Aren Pete - 04/10/2025 11:33 AM EDT Pt states he was supposed to be prescribed a b/p machine which was never sent to the pharmacy. documented in this encounter Plan of Treatment Not on file documented as of this encounter Visit Diagnoses Not on filedocumented in this encounter Additional Health Concerns Assessment Noted Time PHQ-9 Depression Total Score: 4 05/18/20 24 10:04 AM EST documented as of this encounter Care Teams Operations Support Representative Relationship Specialty Start Date End Date Ambreen Forde MD [address] [place] [phone] PCP - General Family Medicine 05/12/13 documented as of this encounter
--- OUTSIDE RECORDS SUMMARY | 2025-04-10 13:08 | XMS_ITS | Encounter Summary ---
Author Organization [employer] Address [address] [facility] 7t [place] [address] Care Team Providers Care Motors Assembler Name Role Phone Ambreen Forde MD Primary Care Provider [phone] Reason for Visit * Reason Onset Date Comments Partial Refill 03/15/2023 Encounter Details Date Type Department Care Team ([facility] st Contact Info) Description 03/15/2023 Telephone [facility] [address] [place] [address] Ambreen Forde MD [address] [place] [address] Partial Refill Social History Tobacco Use Types [...] message below. * Telephone Encounter - Debra Cho - 03/15/2023 3:35 PM EDT Tc from pt and Igor requesting to have a partial refill of his medications metoprolol succinate XL (Toprol-XL) 100 MG 24 hr tablet, simvastatin (Zocor) 10 MG tablet, lisinopril 40 MG tablet, omeprazole (PriLOSEC) [address] shashi Rubin states that pt is currently out of medications in the [facility] [place] and is requesting ifpossible to be sent over to [facility] in [place], [place] Please contact igor at [phone] documented in this encounter Plan of Treatment Not on file documented as of this encounter Visit Diagnoses Diagnosis Benign hypertension Essential hypertension, benign Gastroesophageal reflux disease without esophagitis Esophageal reflux documented in this encounter Care Teams Motors Assembler Relationship Specialty Start Date End Date Ambreen Forde MD [address] [place] [id number] PCP - General Family Medicine 05/12/13 documented as of this encounter
--- OUTSIDE RECORDS SUMMARY | 2025-04-10 13:08 | XMS_ITS | Encounter Summary ---
Author Organization [employer] Address [address] [facility] 7t [place] [address] Care Team Providers Care Blind Teacher Name Role Phone Ambreen Forde MD Primary Care Provider [phone] Reason for Visit * Reason Onset Date Comments Call Back Request 02/29/2024 Encounter Details Date Type Department Care Team ([facility] st Contact Info) Description 02/29/2024 Telephone [facility] [address] [place], [place] [phone] Ambreen Forde MD [address] [place], [place] [phone] Call Back Request Social History Tobacco Use [...] 3:34 PM EDT Tc from Cece with [facility] calling in regards to requesting call back to discuss statin therapy. Please contact Cece at [phone]. documented in this encounter Plan of Treatment Not on file documented as of this encounter Visit Diagnoses Not on filedocumented in this encounter Care Teams Blind Teacher Relationship Specialty Start Date End Date Ambreen Forde MD [address] [place], [place] [phone] PCP - General Family Medicine 05/12/13 documented as of this encounter
--- OUTSIDE RECORDS SUMMARY | 2025-04-10 13:08 | XMS_ITS | Encounter Summary ---
Author Organization [employer] Address [address] [facility] 7t [place] [address] Care Team Providers Care Trail Construction Worker Name Role Phone Ambreen Forde MD Primary Care Provider [phone] Encounter Details Date Type Department Care Team (Latest Contact Info) Description 10/31/2018 Abstract [facility] Dental, Provider, DDS Social History Tobacco [...] on filedocumented in this encounter Care Teams Trail Construction Worker Relationship Specialty Start Date End Date Ambreen Forde MD [address] [place] [phone] PCP - General Family Medicine 05/12/13 documented as of this encounter
== END 2025-04-10 11:15 | disposition home or self-care (01) ==
LOC: HO.HUSH 10:46
PROVIDERS: PCP Student in an Organized Health Care Education/Training Program; Visit Provider Urology
DX: N40.0 Benign prostatic hyperplasia without lower urinary tract symptoms (principal); R39.15 Urgency of urination; N52.9 Male erectile dysfunction, unspecified
CPT/HCPCS: 99213

== ENCOUNTER → 2025-04-10 10:46 | Outpatient (BNVA) | payer MEDICARE, MEDICAID, SELFPAY | PROVIDERS: PCP Student in an Organized Health Care Education/Training Program; Visit Provider Urology | DX: N40.0 Benign prostatic hyperplasia without lower urinary tract symptoms (principal); N52.9 Male erectile dysfunction, unspecified; R39.15 Urgency of urination | CPT/HCPCS: 51798; 81003; 99212 ==

== ENCOUNTER 2025-05-17 14:37 | Outpatient (REF) | payer MEDICARE, SELFPAY ==
--- OUTSIDE RECORDS SUMMARY | 2025-05-17 18:00 | XMS_ITS | Encounter Summary ---
Author Organization [employer] Address [address] [facility] 7t [place] [address] Care Team Providers Care Ic Engineer Name Role Phone Ambreen Forde MD Primary Care Provider [phone] Link Paniagua CNP Primary Care Provider [phone] Encounter Details Date Type Department Care Team (Latest Contact Info) Description 05/04/[address] [facility] Dental, Provider, DDS Social History [...] on filedocumented in this encounter Care Teams Ic Engineer Relationship Specialty Start Date End Date Ambreen Forde MD [address] [place] [address] PCP - General Family Medicine 05/12/13 04/30/25 Link Paniagua CNP [address] [place] [address] PCP - General Family Medicine 05/01/25 documented as of this encounter
--- OUTSIDE RECORDS SUMMARY | 2025-05-17 18:00 | XMS_ITS | Encounter Summary ---
Author Organization [employer] Address [address] [facility] 7t [place] [address] Care Team Providers Care Etched Circuit Processor Name Role Phone Ambreen Forde MD Primary Care Provider [phone] Link Paniagua CNP Primary Care Provider [phone] Encounter Details Date Type Department Care Team (Latest Contact Info) Description 10/31/2018 Abstract [facility] Dental, Provider, DDS Social History [...] on filedocumented in this encounter Care Teams Etched Circuit Processor Relationship Specialty Start Date End Date Ambreen Forde MD [address] [place] [address] PCP - General Family Medicine 05/12/13 04/30/25 Link Paniagua CNP [address] [place] [address] PCP - General Family Medicine 05/01/25 documented as of this encounter
--- OUTSIDE RECORDS SUMMARY | 2025-05-17 18:00 | XMS_ITS | Encounter Summary ---
Author Organization [employer] Address [address] [facility] [address] [place] [address] Care Team Providers Care Flarer Name Role Phone Ambreen Forde MD Primary Care Provider [phone] Link Paniagua CNP Primary Care Provider [phone] Reason for Visit * Reason Onset Date Comments Partial Refill 03/15/2023 Encounter Details Date Type Department Care Team ([facility] st Contact Info) Description 03/15/2023 Telephone [facility] [address] [place] [address] Ambreen Forde MD [address] [place] [address] Partial Refill Social History Tobacco Use Types [...] is currently out of medications in the [facility] and is requesting ifpossible to be sent over to [facility] in [place], [place] Please contact igor at [phone] documented in this encounter Plan of Treatment Not on file documented as of this encounter Visit Diagnoses Diagnosis Benign hypertension Essential hypertension, benign Gastroesophageal reflux disease without esophagitis Esophageal reflux documented in this encounter Care Teams Flarer Relationship Specialty Start Date End Date Ambreen Forde MD [address] [place] [phone] PCP - General Family Medicine 05/12/13 04/30/25 Link Paniagua CNP [address] [place] [address] PCP - General Family Medicine 05/01/25 documented as of this encounter
--- OUTSIDE RECORDS SUMMARY | 2025-05-17 18:00 | XMS_ITS | Encounter Summary ---
Author Organization [employer] Address [address] [place] [address] 7 [place] [address] Care Team Providers Care Centrifugal Chiller Technician Name Role Phone Ambreen Forde MD Primary Care Provider [phone] Link Paniagua CNP Primary Care Provider [phone] Reason for Visit * Reason Comments Med Refill Encounter Details Date Type Department Care Team ([facility] st Contact Info) Description 03/30/2023 Refill [facility] [address] [place], [place] [phone] Ambreen Forde MD [address] [place], [place] [phone] Benign hypertension Social History Tobacco Use Types [...] benign documented in this encounter Care Teams Centrifugal Chiller Technician Relationship Specialty Start Date End Date Ambreen Forde MD [address] [place] [address] PCP - General Family Medicine 05/12/13 04/30/25 Link Paniagua CNP [address] [place] [address] PCP - General Family Medicine 05/01/25 documented as of this encounter
--- OUTSIDE RECORDS SUMMARY | 2025-05-17 18:00 | XMS_ITS | Encounter Summary ---
Author Organization [employer] Address [address] [place] [address] 7 [place] [address] Care Team Providers Care Shake Feeder Name Role Phone Ambreen Forde MD Primary Care Provider [phone] Link Paniagua CNP Primary Care Provider [phone] Reason for Visit * Reason Comments Med Refill Encounter Details Date Type Department Care Team ([facility] st Contact Info) Description 04/13/2023 Refill [facility] [address] [place], [place] [phone] Ambreen Forde MD [address] [place], [place] [phone] Benign hypertension Social History Tobacco Use Types [...] benign documented in this encounter Care Teams Shake Feeder Relationship Specialty Start Date End Date Ambreen Forde MD [address] [place] [address] PCP - General Family Medicine 05/12/13 04/30/25 Link Paniagua CNP [address] [place] [address] PCP - General Family Medicine 05/01/25 documented as of this encounter
--- OUTSIDE RECORDS SUMMARY | 2025-05-17 18:00 | XMS_ITS | Encounter Summary ---
Author Organization [email or web address] Address [address] [facility] 7t [place] [address] Care Team Providers Care Blood And Plasma Laboratory Assistant Name Role Phone Ambreen Forde MD Primary Care Provider Link Paniagua CNP Primary Care Provider [phone] Reason for Visit * Reason Onset Date Comments Call Back Request 02/29/2024 Encounter Details Date Type Department Care Team ([facility] st Contact Info) Description 02/29/2024 Telephone [facility] [address] [place] [address] Ambreen Forde MD [address] [place] [address] [phone] Call Back Request Social History Tobacco Use [...] 3:34 PM EDT Tc from [facility] with [facility] in regards to requesting call back to discuss statin therapy. Please contact Cece at [phone]. documented in this encounter Plan of Treatment Not on file documented as of this encounter Visit Diagnoses Not on filedocumented in this encounter Care Teams Blood And Plasma Laboratory Assistant Relationship Specialty Start Date End Date Ambreen Forde MD [address] [place] [address] PCP - General Family Medicine 05/12/13 04/30/25 Link Paniagua CNP [address] [place] [id number] PCP - General Family Medicine 05/01/25 documented as of this encounter
--- OUTSIDE RECORDS SUMMARY | 2025-05-17 18:00 | XMS_ITS | Clinical Summary ---
Author Organization [employer] Address [address] [facility] 7t [place] [address] Care Team Providers Care Professional Nursing Tutor Name Role Phone Link Paniagua STELLA Primary Care Provider [phone] Allergies Active Allergy Reactions Criticality Noted Date Comments Acetaminophen 05/19/2013 Codeine 05/19/2013 Ibuprofen 02/12/2025 Oxycodone 05/19/2013 Medications cyclobenzaprine (Flexeril) 5 MG tablet Take 5 mg by mouth in the morning. Take 5 mg by mouth in the morning. 01/30/20 22 Active latanoprost (Xalatan) 0.005 % ophthalmic solution PLACE ONE DROP IN EACH EYE AT BEDTIME 06/26/20 22 Active omega-3 (Fish Oil) 1000 [...] ONE TABLET EVERY MORNING 90 tablet 1 11/15/19 25 Active omeprazole (PriLOSEC) [address] capsuleIndicatio ns:Gastroesophag eal reflux disease without esophagitis TAKE ONE CAPSULE EVERY MORNING 30 TO 60 MINUTES BEFORE BREAKFAST 90 capsule 11/15/19 25 Active simvastatin (Zocor) 10 MG tablet TAKE ONE TABLET EVERY EVENING 90 tablet 1 11/15/19 25 Active metoprolol succinate XL (Toprol-XL) 100 MG 24 hr tablet Take 1 tablet (100 mg) by mouth in the morning. 30 tablet 11 03/09/20 25 026 Active pseudoephedrine (Sudafed) 30 MG tablet Take 1 tablet (30 mg) by mouth every 4 (four) hours if needed for congestion for up to 10 days. 30 tablet 03/14/20 25 Active Blood Pressure kit Check blood pressure daily 1 kit 04/12/20 25 Active lisinopril 40 MG tabletIndication s:Benign hypertension TAKE ONE TABLET EVERY MORNING 90 tablet 1 04/30/20 25 Active hydroCHLOROthiaz jazmine (Microzide) 12.5 MG capsuleIndicatio ns:Benign hypertension TAKE ONE CAPSULE EVERY MORNING 90 capsule 1 04/30/20 25 Active lisinopril 40 MG tabletIndication s:Benign hypertension TAKE ONE TABLET EVERY MORNING 90 tablet 1 11/01/19 25 025 Discontinued hydroCHLOROthiaz jazmine (Microzide) 12.5 MG capsuleIndicatio ns:Benign hypertension TAKE ONE CAPSULE EVERY MORNING 90 capsule 1 11/01/19 25 025 Discontinued Active Problems Problem Noted Date Diagnosed Date PVD (peripheral vascular disease) 07/27/2024 Coronary artery disease involving [place] coronar y artery 06/18/2023 Raised prostate specific antigen 05/21/2014 Benign hypertension 09/25/2013 Hypercholesterolemia 09/25/2013 Encounters Date Type Department Care Team Description 04/27/2025 Refill [facility] [address] [facility] [place] [address] Ambreen Forde MD Benign hypertension 04/12/2025 Orders Only [facility] [address] [facility] [place] [address] Ambreen Forde MD 04/10/2025 Telephone [facility] [address] [facility] [place] [address] Ambreen Forde MD B/p machine 04/04/2025 2:30 PM EDT Clinical Support [facility] [address] [facility] [place] [address] Michaela Martinez RN Benign hypertension 04/04/2025 Telephone [facility] [place] [address] Michaela Martinez RN 04/04/2025 Travel 03/27/2025 3:30 PM EDT Office Visit [facility] AD[facility] [address] [place] [address] Gagan Moss DDS 03/14/2025 11:30 AM EDT Office Visit [facility] [address] [place] [address] Ambreen Forde MD Upper respiratory tract infection, unspecified type 03/14/2025 Travel 03/09/2025 9:00 AM EDT Office Visit [facility] [address] [place] [address] Gagan Moss DDS 03/09/2025 Orders Only [facility] [address] [place] [address] Ambreen Forde MD 03/09/2025 Travel 03/07/2025 Telephone [facility] [address] [place] [address] Ambreen Forde MD Med Refill 03/02/2025 1:00 PM EDT Office Visit [facility] [address] [place] [address] Gagan Moss DDS 03/01/2025 Telephone [facility] [address] [place] [address] Ambreen Forde MD No Show 02/28/2025 Telephone [facility] [address] [place] [address] Ambreen Forde MD Chart Prep 02/21/2025 11:00 AM EDT Office Visit [facility] [address] [place] [address] Gagan Moss DDS 02/14/2025 11:00 AM EDT Office Visit [facility] [address] [place] [address] Fredi Pickard Dental calculus (Primary Dx) from Last 3 Months Immunizations Immunization Administration [...] Cigarettes Q uit: 1978 Smokeless Tobacco: Never Tobacco Cessation:Counseling Given: Not [...] 60 years or older (1 - Risk 50-74 years 1-dose series) 2001 Dental Oral Exam 10/11/2019 04/10/2019, , 02/22/2018 Dental X-Ray: Full Mouth 02/23/2021 02/22/2018 Colonoscopy 09/13/2024 09/13/2014 COVID-19 Vaccine ( season) 2025 05/18/2024, 10/04/2020, 09/06/2020 Influenza Vaccine (#1) 2025 , 07/07/2022, 06/10/2021, Additional history exists Alcohol/Substance Use Screening 05/18/2025 05/18/2024 Depression Screening 05/18/2025 05/18/2024, 05/18/20 24 FOBT 05/25/2025 05/25/2024 Dental Prophylaxis 08/18/2025 02/14/2025, [...] RADIOGRAPHIC IMAGE Routine 02/14/2025 11:00 AM EDT LAB COLOGUARD COLON CANCER SCREEN Routine [...] Rapid Covid-19 BinaxNOW (03/14/2025 11:51 AM EDT) [facility] Rapid COVID Ag Negative QC Media Lot # [id number] Lot# Expiration Date [id number] Swab 03/14/2025 11:5 1 AM EDT Ambreen Forde MD POINT OF CARE TEST ENTER/EDIT OR DERABLES Final Result * POCT Rapid Strep A OS[facility] (03/14/2025 11:50 AM EDT) [facility] Rapid Strep A Screen Negative Negative, None Detected QC Media Lot # [id number] Lot# Expiration Date ,025 Swab 03/14/2025 11:5 0 AM EDT Ambreen Forde MD POINT OF CARE TEST ENTER/EDIT OR DERABLES Final Result * POCT Rapid Influenza B OSOM (03/14/2025 11:49 AM EDT) [facility] Rapid Influenza B Ag Negative Negative, Indeterminate QC Media Lot # [id number] Lot# Expiration Date , Swab 03/14/2025 11:4 9 AM EDT Ambreen Forde MD POINT OF CARE TEST ENTER/EDIT OR DERABLES Final Result * POCT Rapid Influenza A OSOM (03/14/2025 11:48 AM EDT) [facility] Rapid Influenza A Ag Negative Negative, Indeterminate QC Media Lot # [id number] Lot# Expiration Date , Swab Nasopharyngeal structure / Unknown 03/14/2025 11:48 AM EDT Ambrene Forde MD POINT OF CARE TEST ENTER/EDIT OR DERABLES Final Result * (ABNORMAL) Cologuard?? colon cancer screening (05/25/2024 1:00 PM EST) [facility] Cologuard Result Positive( A) Negative 06/10/2024 9:30 PM EST [facility] (CLIA #:[id number]) Comment: POSITIVE TEST RESULT. A positive Cologuard [...] (Ranjan Mcgovern al, N Engl J Med 2014;370(14):2900-0857.) Cologuard may produce a false negative or false positive result (no colorectal cancer or precancerous polyp present at colonoscopy follow up). A negative Cologuard test result does not guarantee the absence of CRC or advanced adenoma (pre-cancer). The current Cologuard screening interval is every 3 years. ([place] [employer] and U.S. Multi-Society Task Force). Cologuard performance data in a 10,000 patient pivotal study using colonoscopy as the reference method can be accessed at the following location: www.[employer]/results. Additional description of the Cologuard test process, warnings and precautions can be found at www.[employer].com. Stool specimen (specimen) 05/25/2024 1:00 PM EST 05/27/2024 7:23 AM EST us Ambreen Forde MD LAB MOLECULAR DIAGNOSTICS ORDERA BLES Final Result [facility] (CLIA #:[id number]) [address] [place] [address], * (ABNORMAL) Lipid Panel, Standard (05/25/2024 12:45 PM EST) Triglycerides 112 <150 mg/dL [facility] Comment:Desirable Triglyceri de: less than 150 mg/dLBorderline High Triglyceride 150-199 mg/dLHigh Triglyceride: 200-499 mg/dLVery High Triglyceride: greater than or equal to 5OO mg/dL Cholesterol 193 <200 mg/dL [facility] Comment:Desirable Cholestero l: less than 200 mg/dLBorderline High Cholesterol: 200-239 mg/dLHigh Cholesterol: greater than 239 mg/dL LDL Cholesterol Calculated 125(H) <100 mg/dL [facility] Comment:Desirable LDL: less than 100 mg/dLNear Optimal/Above Optimal LDL: 110- 129 mg/dLBorderline High LDL: 130-159 mg/dLHigh LDL: 160-189 mg/dLVery High LDL: greater than or equal to 190 mg/dL HDL Cholesterol 46 >40 mg/dL [facility] Comment:Desirable HDL: great er than 40 mg/dL Note: This HDL assay may give artificially low results in patients with liver disease. Blood Venous blood specimen / Unknown 05/25/2024 12:45 PM EST 05/25/2024 2:07 PM EST Ambreen Forde MD LAB BLOOD ORDERABLES Final Resul t [facility] [address] [place] [address] [phone] * Colonoscopy (09/13/2014) Colonoscopy Normal Normal Historical Provider HEALTH MAINTENANCE Final Result from Last 3 Months or Most Recently Relevant to Health Maintenance Insurance [facility] MEDICARE ADVANTAGE HMO DENTAL [facility] PPO * Guarantor: [employer]ino [employer] Account Type Relation to Patient Date of Phone Billing Address Personal/Family Self [address] Care Teams Professional Nursing Tutor Relationship Specialty Start Date End Date Link Paniagua CNP [address] [facility] [place] [address] PCP - General Family Medicine 05/01/25
== END 2025-05-17 14:38 | disposition home or self-care (01) ==
LOC: HO.LAB 14:37
PROVIDERS: Visit Provider Urology
DX: N20.0 Calculus of kidney (principal); R31.9 Hematuria, unspecified
CPT/HCPCS: 87086

== ENCOUNTER → 2025-05-17 14:37 | Outpatient (BNV) | payer MEDICARE, MEDICAID, SELFPAY | PROVIDERS: PCP Student in an Organized Health Care Education/Training Program; Visit Provider Urology | DX: N20.0 Calculus of kidney (principal); R31.9 Hematuria, unspecified | CPT/HCPCS: 81003 ==